=== PATIENT | female | born 1935 | race Hispanic/Latino ===

== ENCOUNTER 2018-01-20 21:27 | Emergency (ER) | payer MEDICARE, MEDICAID, SELFPAY ==
[2018-01-20 21:30] VITALS: BP 163/70; PULSE 92; RESP 20; TEMP 38.1; O2SAT 96; BMI 30.1
[2018-01-21 00:10] LABS: Add Manual Diff / Slide Review NO; Basophils Percent Auto 0.2 % (0-2); Eosinophils Percent Auto 0.8 % (2-4); Hematocrit 33.5 % (36-46); Hemoglobin 11.1 g/dL (12.0-16.0); Lymphocytes Percent Auto 3.2 % (25-40); Mean Corpuscular HGB Conc 33.1 % (30-36); Mean Corpuscular Hemoglobin 28.9 PG (26-34); Mean Corpuscular Volume 87.3 fL (80-100); Monocytes Percent Auto 1.3 % (3-14); Neutrophils Absolute Auto 11000 /uL (3000-5900); Neutrophils Percent Auto 94.5 % (50-75); Platelet Count 237 X10^3/uL (150-400); Red Blood Cell Count 3.84 X10^6/uL (4.0-5.2); Red Cell Distribution Width 14.3 % (11.6-14.8); White Blood Cell Count 11.6 X10^3/uL (4.5-11.0)
[2018-01-21 00:17] LABS: Lactate (Lactic Acid) 1.5 mmol/L (0.7-2.1)
[2018-01-21 00:21] LABS: Alanine Aminotransferase 22 IU/L (9-52); Albumin Globulin Ratio 1.5 (1.0-2.8); Alkaline Phosphatase 69 U/L (38-126); Aspartate Aminotransferase 23 IU/L (14-36); Bilirubin Total 0.6 mg/dL (0.2-1.3); Calcium 9.9 mg/dL (8.4-10.2); Estimated Glomerular Filt Rate > 60.0 mL/min (>60); Globulin 2.6 g/dL (1.7-4.1); Glucose 202 mg/dL (80-110); HEMOLYSIS < 15 (0-50); Lipase 78 U/L (23-300); Potassium 3.8 mmol/L (3.4-5.1); Sodium 140 mmol/L (137-145); Total Protein 6.6 g/dL (6.3-8.2)
[2018-01-21 00:42] LABS: Procalcitonin 0.94 ng/mL (<0.5)
[2018-01-21] MEDS: PIPERACILLIN-TAZO 4.5 GM/100 ML FROZ.PIGGY IV (00:49)
[2018-01-21] MEDS: SODIUM CHLORIDE 0.9% 1,000 ML 1000 ML IV (00:49)
--- NOTE | 2018-01-21 00:50 | PC.NURSE ---
zosyn dose verified with provider. medication not able to be scanned at this time.
[2018-01-21 01:57] VITALS: BP 123/67; PULSE 116; RESP 22; TEMP 36.8; O2SAT 99
--- NOTE | 2018-02-20 06:09 | ED.LOWEXIN ---
HPI - Extremity Injury (Lower) General Chief Complaint: Extremity Injury, Lower Stated Complaint: hip px Time Seen by Provider: 01/20/18 22:51 History of Present Illness HPI Narrative: HPI 82-year-old female presents with a poorly articulate history with the complaint of bilateral hip pain of one day, patient febrile. M/S/F/SocHx notable for: hypothyroidism, HLD, DM II, colonic tubular adenoma,; remainder reviewed with patient and in chart. ROS: Negative constitutional, eye, cardiovascular, pulmonary, GI, , MSK, skin, neurologic, psychiatric, endocrine unless noted in the HPI. Exam HR 92, BP 163/70, RR 20, T 100.6 ?F, SaO2 96% on room air. Gen: Pleasant, non-toxic appearing, resting comfortably. HEENT: NC, AT, PEERL, EOMI. Resp: Clear to auscultation bilaterally, normal work of breathing, no accessory muscle usage. No cough observed. Card: Regular rate and rhythm with no murmurs, rubs, or gallops, extremities warm and well perfused. GI: nontender, nondistended. : No suprapubic tenderness to palpation. MSK: No visible deformities, strength and tone without visually appreciable deficit. Skin: Normal color with no visible lesions. Neuro: alert, pleasant, no facial asymmetry, vision and hearing WNL. Psych: Mood and affect appropriate. Labs / Imaging: WBC 11.6, hemoglobin 11.1, PT/INR 1.0, sodium 140, potassium 3.8, lactic 1.5, Procalcitonin 0.94 MDM Previous chart, nursing note, labs, imaging, and vitals reviewed. A/P: 82-year-old female presents with a poorly articulate history with the complaint of bilateral hip pain of one day, patient febrile. Initial history limited by language barrier, at the time of the initial history the patient was with a large volume of patients with several unstable patients, intention was to return for repeat HPI and repeat examination with foreign language interpreter service. Initial screening labs were sent, and the patient was given initial dose of antibiotics as well as IV fluids. Prior to repeat evaluation I was informed by nursing that the patient had signed out AMA. I was unable to return to the patient's room before she had left the department. The patient was alert, oriented, and while there was a limited language barrier, the patient had intact insight, awareness of the ongoing need for evaluation, and appeared to have full capacity in her decision-making. Impression: hip pain (please reference below for remainder of encounter information) Related Data Home Medications Medication Instructions Recorded Confirmed ibuprofen 200 mg PO #0 11/12/16 Previous Rx's Medication Instructions Recorded Glucose: Home Monitoring Kit kit #1 03/27/17 levothyroxine [Synthroid] 125 mcg PO QDAY #90 tab 03/27/17 glipizide 2.5 mg PO BIDAC #45 tab 06/10/17 metformin [Glucophage] 1,000 mg PO BIDCC #180 tab 06/10/17 simvastatin 20 mg PO HS #90 tab 06/10/17 meclizine [Bonine] 25 mg PO BID PRN #20 09/09/17 ondansetron [Zofran ODT] 4 mg SUBLINGUAL Q4HP PRN #20 odt 10/09/17 scopolamine base [Transderm-Scop] 1 patch TD Q72H #4 patch 10/09/17 Allergies Allergy/AdvReac Type Severity Reaction Status Date / Time aspirin [ASPIRIN] AdvReac Mild NAUSEA Verified 01/20/18 21:59 PFSH Surgical History History of cataract removal with insertion of prosthetic lens Status post cholecystectomy Family History Brother High cholesterol Stroke Social History Smoking Status: Never smoker Exam Initial Vital Signs Initial Vital Signs: Vital Signs Temperature 100.6 F H 01/20/18 21:30 Pulse Rate 92 H 01/20/18 21:30 Respiratory Rate 20 01/20/18 21:30 Blood Pressure 163/70 H 01/20/18 21:30 Pulse Oximetry 96 01/20/18 21:30 Course Orders Ordered: Discontinued Medications Piperacillin/Tazobactam/Dextrose (Zosyn) 4.5 gm in 100 mls @ 200 mls/hr IV NOW ONE Stop: 01/20/18 23:50 Last Infusion: 01/21/18 01:59 Dose: 200 mls/hr Admin: 01/21/18 00:49 Dose: 200 mls/hr Sodium Chloride (Normal Saline 0.9%) 2,313.33 mls @ 771.11 mls/hr 30 ml/kg infuse over 3 hr (2313.33 ml) IV CONT TRIPP Last Admin: 01/21/18 00:50 Dose: Not Given Sodium Chloride (Normal Saline 0.9%) 1,000 mls @ 1,000 mls/hr IV BOLUS ONE Stop: 01/21/18 00:20 Last Infusion: 01/21/18 02:21 Dose: 1,000 mls/hr Admin: 01/21/18 00:49 Dose: 1,000 mls/hr MDM - Extremity Injury (Lower) Lab Data Result diagrams: 01/20/18 23:58 01/20/18 23:58 Lab Results 01/20/18 01/20/18 01/20/18 Range/Units 23:58 23:58 23:58 WBC 11.6 H (4.5-11.0) X10^3/uL RBC 3.84 L (4.0-5.2) X10^6/uL Hgb 11.1 L (12.0-16.0) g/dL Hct 33.5 L (36-46) % MCV 87.3 (80-100) fL MCH 28.9 (26-34) PG MCHC 33.1 (30-36) % RDW 14.3 (11.6-14.8) % Plt Count 237 (150-400) X10^3/uL Neut % (Auto) 94.5 H (50-75) % Lymph % (Auto) 3.2 L (25-40) % [place] % (Auto) 1.3 L (3-14) % Eos % (Auto) 0.8 L (2-4) % Baso % (Auto) 0.2 (0-2) % Neut # (Auto) 01106 H (4418-3566) /uL PT 11.0 (10.1-12.7) SECONDS INR 1.0 (0.9-1.3) Sodium 140 (137-145) mmol/L Potassium 3.8 (3.4-5.1) mmol/L Chloride 104.0 (98-107) mmol/L Carbon Dioxide 25.0 (22-32) mmol/L BUN 24.0 H (7-17) mg/dL Creatinine 0.40 L (0.52-1.04) mg/dL Estimated GFR > 60.0 (>60) mL/min BUN/Creatinine Ratio 60.0 H (6-22) Glucose 202 H (80-110) mg/dL Lactate (0.7-2.1) mmol/L Calcium 9.9 (8.4-10.2) mg/dL Total Bilirubin 0.6 (0.2-1.3) mg/dL AST 23 (14-36) IU/L ALT 22 (9-52) IU/L Alkaline Phosphatase 69 (38-126) U/L Total Protein 6.6 (6.3-8.2) g/dL Albumin 4.0 (3.5-5.0) g/dL Globulin 2.6 (1.7-4.1) g/dL Albumin/Globulin Ratio 1.5 (1.0-2.8) Lipase 78 (23-300) U/L Procalcitonin (<0.5) ng/mL 01/20/18 01/20/18 Range/Units 23:58 23:58 WBC (4.5-11.0) X10^3/uL RBC (4.0-5.2) X10^6/uL Hgb (12.0-16.0) g/dL Hct (36-46) % MCV (80-100) fL MCH (26-34) PG MCHC (30-36) % RDW (11.6-14.8) % Plt Count (150-400) X10^3/uL Neut % (Auto) (50-75) % Lymph % (Auto) (25-40) % [place] % (Auto) (3-14) % Eos % (Auto) (2-4) % Baso % (Auto) (0-2) % Neut # (Auto) (2036-5655) /uL PT (10.1-12.7) SECONDS INR (0.9-1.3) Sodium (137-145) mmol/L Potassium (3.4-5.1) mmol/L Chloride (98-107) mmol/L Carbon Dioxide (22-32) mmol/L BUN (7-17) mg/dL Creatinine (0.52-1.04) mg/dL Estimated GFR (>60) mL/min BUN/Creatinine Ratio (6-22) Glucose (80-110) mg/dL Lactate 1.5 (0.7-2.1) mmol/L Calcium (8.4-10.2) mg/dL Total Bilirubin (0.2-1.3) mg/dL AST (14-36) IU/L ALT (9-52) IU/L Alkaline Phosphatase (38-126) U/L Total Protein (6.3-8.2) g/dL Albumin (3.5-5.0) g/dL Globulin (1.7-4.1) g/dL Albumin/Globulin Ratio (1.0-2.8) Lipase (23-300) U/L Procalcitonin 0.94 H (<0.5) ng/mL Discharge Plan Departure Patient Disposition: Left Against Medical Advice Discharge Date/Time: 01/21/18 03:41 Interventions: ED Discharge Assessment Last Done: 01/21/18 03:39 Prescriptions: No Action ibuprofen 200 MG tablet 200 mg PO Qty: 0 RF: 0 levothyroxine [Synthroid] 125 MCG tablet 125 mcg PO QDAY Qty: 90 RF: 2 Glucose: Home Monitoring Kit Qty: 1 RF: 0 simvastatin 20 MG tablet 20 mg PO HS Qty: 90 RF: 3 metformin [Glucophage] 1,000 MG tablet 1,000 mg PO BIDCC Qty: 180 RF: 3 glipizide 5 MG tablet 2.5 mg PO BIDAC Qty: 45 RF: 1 meclizine [Bonine] 25 MG tablet,chewable 25 mg PO BID PRNQty: 20 RF: 0 scopolamine base [Transderm-Scop] 1.5 MG patch 3 day 1 patch TD Q72H Qty: 4 RF: 0 ondansetron [Zofran ODT] 4 MG tablet,disintegrating 4 mg Sublingual Q4HP PRNQty: 20 RF: 0 Stand Alone Forms: Against Medical Advice
== END 2018-01-21 03:41 | disposition left against medical advice (07) ==
PROVIDERS: Emergency Provider Emergency Medicine; Family Provider Family Medicine; PCP Family Medicine
DX: M25.559 Pain in unspecified hip (principal)
CPT/HCPCS: 36415; 36591; 80053; 83605; 83690; 84145; 85025; 85610; 87040; 96360; 99283; 99284; J2543

== ENCOUNTER → 2019-06-02 12:35 | Outpatient (CLI) | payer MEDICARE, MEDICAID, SELFPAY ==
--- NOTE | 2019-06-02 | DI.RAD.S_ITS ---
PROCEDURE: XR HAND RT MIN 3V INDICATIONS: Pain in right hand TECHNIQUE: 3 views of the hand(s) acquired. COMPARISON: None. FINDINGS: Bones: No fractures or dislocations. Carpal bones are normally aligned. No suspicious bony lesions. Diffuse interphalangeal joint degeneration. First CMC and triscaphe joint degeneration. Soft tissues: Numerous vascular calcifications. Periarticular calcific foci adjacent to the second, third and fifth MCP joints. There is also chondrocalcinosis in the wrist IMPRESSION: Diffuse right hand joint degeneration. Right wrist chondrocalcinosis. Scattered periarticular calcific foci at the MCP joints as above raising possibility of tophi/gout. Please correlate clinically with serum uric acid. Dictated by: Kade Terrell M.D. on 06/02/2019 at 16:31 Approved by: Kade Terrell M.D. on 06/02/2019 at 16:34
== END ==
PROVIDERS: PCP Family Medicine; Visit Provider Family Medicine
DX: M79.641 Pain in right hand (principal); M19.041 Primary osteoarthritis, right hand; M11.231 Other chondrocalcinosis, right wrist
CPT/HCPCS: 73130

== ENCOUNTER 2020-06-09 16:22 | Emergency (ER) | payer MEDICARE, MEDICAID, SELFPAY ==
[2020-06-09] VITALS (9 sets, daily range): BP systolic 135–185; BP diastolic 66–86; PULSE 66–90; RESP 12–25; TEMP 37.1; O2SAT 96–98; BMI 43.6
[2020-06-09 17:35] LABS: INR 0.9 (0.9-1.3); Prothrombin Time 10.9 SECONDS (10.1-12.7)
[2020-06-09 17:37] LABS: PTT Partial Thromboplastin Tim 31 SECONDS (26.4-36.2)
[2020-06-09 17:39] LABS: Add Manual Diff / Slide Review NO; Alanine Aminotransferase 11 IU/L (<35); Albumin 4.4 g/dL (3.5-5.0); Albumin Globulin Ratio 1.5 (1.0-2.8); Alkaline Phosphatase 59 U/L (38-126); Aspartate Aminotransferase 33 IU/L (14-36); BUN Creatinine Ratio 54.8 (6-22); Basophils Absolute Auto 100 /uL (0-100); Bilirubin Total 0.4 mg/dL (0.2-1.3); Blood Urea Nitrogen 23 mg/dL (7-17); Calcium 9.9 mg/dL (8.4-10.2); Carbon Dioxide 23 mmol/L (22-32); Chloride 105 mmol/L (98-107); Eosinophils Absolute Auto 300 /uL (0-450); Eosinophils Percent Auto 3.6 % (2-4); Estimated Glomerular Filt Rate > 60.0 mL/min (>60); Glucose 146 mg/dL (80-110); HEMOLYSIS 42 (0-50); Hematocrit 35.5 % (36-46); Hemoglobin 11.5 g/dL (12.0-16.0); Lymphocytes Absolute Auto 2200 /uL (1100-4500); Lymphocytes Percent Auto 31.4 % (25-40); Mean Corpuscular HGB Conc 32.4 % (30-36); Mean Corpuscular Hemoglobin 29.3 PG (26-34); Mean Corpuscular Volume 90.6 fL (80-100); Monocytes Absolute Auto 400 /uL (0-900); Monocytes Percent Auto 5.6 % (3-14); Neutrophils Absolute Auto 4100 /uL (1500-7000); Neutrophils Percent Auto 58.4 % (50-75); Platelet Count 287 X10^3/uL (150-400); Potassium 4.8 mmol/L (3.4-5.1); Red Blood Cell Count 3.92 X10^6/uL (4.0-5.2); Red Cell Distribution Width 14.4 % (11.6-14.8); Sodium 137 mmol/L (137-145); Total Protein 7.4 g/dL (6.3-8.2); White Blood Cell Count 7.1 X10^3/uL (4.5-11.0)
[2020-06-09 18:01] LABS: Bacteria Urine None Seen; RBC Urine None Seen (0-5/HPF)
[2020-06-09 18:10] LABS: Culture Indicated Urine Cult Not Indicated; Mucus Urine 1+ (Negative); Squamous Epithelial Cell Urine 0-1 /HPF (0-5/HPF); WBC Urine 0-1/HPF (0-5/HPF)
--- NOTE | 2020-06-09 18:34 | ED_ITS ---
HPI - Nausea/Vomiting/Diarrhea General Chief complaint: GI Bleed Stated complaint: bloody stool, itching Time Seen by Provider: 06/09/20 17:18 Source: patient and family Mode of arrival: Ambulatory Limitations: language barrier History of Present Illness HPI Narrative: Patient does not want a washery engineer phone. She prefers her daughter to translate. Patient is not here for rectal bleeding she is here for watery diarrhea each day and especially after eating. No abdominal pain no dizziness no syncope. At time sees black stools but no blood in the toilet. No weakness no dizziness no chest pain dyspnea or back pain. Is not on any blood thinners. No history of hemorrhoids. Patient takes Excedrin for chronic hand and arthritis pain. Takes this daily. Daughter feels that this may be upsetting her stomach. Denies any pain. No history of EGD. Family physician in [place]. Related Data Home Medications Medication Instructions Recorded Confirmed ibuprofen 200 mg PO #0 11/12/16 03/21/18 Previous Rx's Medication Instructions Recorded Glucose: Home Monitoring Kit kit #1 03/27/17 levothyroxine [Synthroid] 125 mcg PO QDAY #90 tab 03/27/17 glipizide 2.5 mg PO BIDAC #45 tab 06/10/17 metformin [Glucophage] 1,000 mg PO BIDCC #180 tab 06/10/17 simvastatin 20 mg PO HS #90 tab 06/10/17 meclizine [Bonine] 25 mg PO BID PRN #20 09/09/17 ondansetron [Zofran ODT] 4 mg SUBLINGUAL Q4HP PRN #20 odt 10/09/17 scopolamine base [Transderm-Scop] 1 patch TD Q72H #4 patch 10/09/17 pantoprazole [Protonix] 40 mg PO DAILY #30 tab 06/09/20 sucralfate 1 gram PO BID #20 tab 06/09/20 Allergies Allergy/AdvReac Type Severity Reaction Status Date / Time aspirin [ASPIRIN] AdvReac Mild NAUSEA Verified 06/09/20 16:44 Review of Systems Review of Systems Narrative: GENERAL: Denies chills, fatigue, malaise, fever, sweats. HEENT: Denies sinus pain, ear pain, sore throat, difficulty swallowing, dizziness. RESPIRATORY: Denies dyspnea, cough, wheezing, hemoptysis, sputum. CARDIOVASCULAR: Denies chest pain, palpitations, orthopnea, edema, GASTROINTESTINAL: Denies nausea, vomiting, abdominal pain, complains diarrhea, constipation, complains melena. : Denies dysuria, frequency, incontinence, hematuria, urinary retention. MUSCULOSKELETAL: denies weakness, joint pain, or bony pain SKIN: Denies rash, skin lesions NEUROLOGIC: Denies weakness, headache, numbness, change in speech, confusion, seizures, incoordination. PSYCHIATRIC: No concerning psychosocial issues. ROS Unobtainable: All systems reviewed & are unremarkable except as noted in HPI and below Patient History Surgical History History of cataract removal with insertion of prosthetic lens Status post cholecystectomy Family History Brother High cholesterol Stroke Social History Smoking Status: Never smoker Smoking Status: Never smoker Substance Use Type: does not use Exam Narrative Exam Narrative: GENERAL: patient appears stated age. Well-nourished, well- developed patient, in no distress, not toxic HEAD: Atraumatic. Normocephalic. EYES: Pupils equal round and reactive. Extraocular motions intact. No scleral icterus. No injection or drainage. ENT: Nose without bleeding, purulent drainage. Throat without erythema, tonsillar hypertrophy or exudate. Airway patent. NECK: Trachea midline. Non tender CARDIOVASCULAR: Regular rate and rhythm without murmurs, gallops, or rubs. RESPIRATORY: Clear to auscultation. Breath sounds equal bilaterally. No wheezes, rales, or rhonchi. GASTROINTESTINAL: Abdomen soft, non-tender, nondistended. Female nurse at bedside to supervisor phosphorus processing. No blood at the anus. No black stool. Brown stool on glove. Is guaiac negative. no hemorrhoids seen EXTREMITIES: No edema or joint tenderness. BACK: Nontender without deformity or crepitance. No flank tenderness. NEURO: AOx4. SKIN: No rash or erythema of visible areas PSYCH: Not anxious, is cooperative Initial Vital Signs Initial Vital Signs: Vital Signs Temperature 98.7 F 06/09/20 16:44 Pulse Rate 90 06/09/20 16:44 Respiratory Rate 16 06/09/20 16:44 Blood Pressure 183/77 H 06/09/20 16:44 Pulse Oximetry 97 06/09/20 16:44 Course Orders Ordered: ED Orders 06/09/20 16:38 Urine Microscopic Stat 06/09/20 17:07 Complete Blood Count AUTO DIFF Stat Comprehensive Metabolic Panel Stat Partial Thromboplastin Time Stat Prothrombin Time INR Stat 06/09/20 17:27 EKG-12 Lead Stat 06/09/20 18:33 CT abdomen pelvis w con Stat Discontinued Medications Sodium Chloride (Normal Saline 0.9%) 500 mls @ 1,000 mls/hr IV BOLUS ONE Stop: 06/09/20 19:02 Last Infusion: 06/09/20 20:26 Dose: 0 mls/hr Documented by: Admin: 06/09/20 18:40 Dose: 1,000 mls/hr Documented by: EDWIN Pantoprazole Sodium (Protonix) 40 mg IV NOW ONE Stop: 06/09/20 18:34 Last Admin: 06/09/20 18:39 Dose: 40 mg Documented by: EDWIN Reevaluation(s) Reevaluation #1: No diarrhea during his stay here. No black stools. Reviewed results with daughter and patient. They desire discharge home and follow-up. Time: 20:10 Vital Signs Vital signs: Vital Signs - 8 hr 06/09/20 17:29 06/09/20 17:30 06/09/20 18:00 Pulse Rate 82 82 82 Respiratory Rate 19 20 25 H Blood Pressure 185/86 H Pulse Oximetry 96 96 96 06/09/20 18:11 06/09/20 18:30 06/09/20 19:00 Pulse Rate 73 74 77 Respiratory Rate 19 24 16 Blood Pressure 135/75 Pulse Oximetry 97 96 98 06/09/20 20:13 06/09/20 20:26 Pulse Rate 66 Respiratory Rate 12 Blood Pressure 143/66 H 143/66 H Pulse Oximetry 96 MDM - Nausea/Vomiting/Diarrhea Differential Diagnosis Differential diagnosis: Likely gastroenteritis and other (Diarrhea/gastritis) Lab Data Attestation: I reviewed the patient's lab results. Lab results narrative: CBC at baseline. The renal function at baseline Result diagrams: 06/09/20 17:07 06/09/20 17:07 Labs: Lab Results 06/09/20 06/09/20 06/09/20 Range/Units 16:38 17:07 17:07 WBC 7.1 (4.5-11.0) X10^3/uL RBC 3.92 L (4.0-5.2) X10^6/uL Hgb 11.5 L (12.0-16.0) g/dL Hct 35.5 L (36-46) % MCV 90.6 (80-100) fL MCH 29.3 (26-34) PG MCHC 32.4 (30-36) % RDW 14.4 (11.6-14.8) % Plt Count 287 (150-400) X10^3/uL Neut % (Auto) 58.4 (50-75) % Lymph % (Auto) 31.4 (25-40) % [place] % (Auto) 5.6 (3-14) % Eos % (Auto) 3.6 (2-4) % Baso % (Auto) 1.0 (0-2) % Neut # (Auto) 4100 (6860-7519) /uL Lymph # (Auto) 2200 (0018-4912) /uL [place] # (Auto) 400 (0-900) /uL Eos # (Auto) 300 (0-450) /uL Baso # (Auto) 100 (0-100) /uL PT 10.9 (10.1-12.7) SECONDS INR 0.9 (0.9-1.3) APTT 31 (26.4-36.2) SECONDS Sodium (137-145) mmol/L Potassium (3.4-5.1) mmol/L Chloride (98-107) mmol/L Carbon Dioxide (22-32) mmol/L BUN (7-17) mg/dL Creatinine (0.52-1.04) mg/dL Estimated GFR (>60) mL/min BUN/Creatinine Ratio (6-22) Glucose (80-110) mg/dL Calcium (8.4-10.2) mg/dL Total Bilirubin (0.2-1.3) mg/dL AST (14-36) IU/L ALT (<35) IU/L Alkaline Phosphatase (38-126) U/L Total Protein (6.3-8.2) g/dL Albumin (3.5-5.0) g/dL Globulin (1.7-4.1) g/dL Albumin/Globulin Ratio (1.0-2.8) Urine RBC None seen (0-5/HPF) Urine WBC 0-1/hpf (0-5/HPF) Ur Squamous Epith Cells 0-1 /hpf (0-5/HPF) Urine Bacteria None seen (None) Urine Mucus 1+ H (Negative) Ur Culture Indicated? Cult not indicated 06/09/20 Range/Units 17:07 WBC (4.5-11.0) X10^3/uL RBC (4.0-5.2) X10^6/uL Hgb (12.0-16.0) g/dL Hct (36-46) % MCV (80-100) fL MCH (26-34) PG MCHC (30-36) % RDW (11.6-14.8) % Plt Count (150-400) X10^3/uL Neut % (Auto) (50-75) % Lymph % (Auto) (25-40) % [place] % (Auto) (3-14) % Eos % (Auto) (2-4) % Baso % (Auto) (0-2) % Neut # (Auto) (6341-7852) /uL Lymph # (Auto) (4904-4467) /uL [place] # (Auto) (0-900) /uL Eos # (Auto) (0-450) /uL Baso # (Auto) (0-100) /uL PT (10.1-12.7) SECONDS INR (0.9-1.3) APTT (26.4-36.2) SECONDS Sodium 137 (137-145) mmol/L Potassium 4.8 (3.4-5.1) mmol/L Chloride 105 (98-107) mmol/L Carbon Dioxide 23 (22-32) mmol/L BUN 23 H (7-17) mg/dL Creatinine 0.42 L (0.52-1.04) mg/dL Estimated GFR > 60.0 (>60) mL/min BUN/Creatinine Ratio 54.8 H (6-22) Glucose 146 H (80-110) mg/dL Calcium 9.9 (8.4-10.2) mg/dL Total Bilirubin 0.4 (0.2-1.3) mg/dL AST 33 (14-36) IU/L ALT 11 (<35) IU/L Alkaline Phosphatase 59 (38-126) U/L Total Protein 7.4 (6.3-8.2) g/dL Albumin 4.4 (3.5-5.0) g/dL Globulin 3.0 (1.7-4.1) g/dL Albumin/Globulin Ratio 1.5 (1.0-2.8) Urine RBC (0-5/HPF) Urine WBC (0-5/HPF) Ur Squamous Epith Cells (0-5/HPF) Urine Bacteria (None) Urine Mucus (Negative) Ur Culture Indicated? Urine Dip Bedside Urine Glucose Negative Bedside Urine Bilirubin - Negative Bedside Urine Ketone + 15 Urine Specific [place] 1.025 Bedside Urine Occult Blood - Negative Bedside Urine pH 5.5 Bedside Urine Protein - Negative Bedside Urine Urobilinogen - Negative Bedside Urine Nitrite - Negative Bedside Urine Leukocytes - Negative Esterase Imaging Data CT scan - abdomen/pelvis: Radiologist's Impression: [address] [address] [address] Scan Report Signed Patient: Cee Stockton R#: [id number] : 5Acct:[id number] Age/Sex: 84 / FDate of Service: 06/09/20 Loc: ED Accession Number: [id number] Procedure: CT abdomen pelvis w con Ordering Provider: Bienvenido Dodd MD PROCEDURE: CT ABDOMEN PELVIS W CON INDICATIONS: IV contrast only/diarrhea TECHNIQUE: After the administration of intravenous contrast, 5 mm thick sections acquired from the diaphragm to the symphysis. 5 mm coronal and sagittal reformats were acquired. For radiation dose reduction, the following was used: automated exposure control, adjustment of mA and/or kV according to patient size. COMPARISON: [facility], CT, ABDOMEN/PELVIS WITH CONTRAST, 11/05/2013, 12:47. FINDINGS: Image quality: Excellent. ABDOMEN: Lung bases: The visible distal esophagus is mildly patulous and contains an air-fluid level in the midportion. Heart is mildly enlarged with moderate mitral annular calcification. Lung bases are clear. Solid organs: Liver is enlarged in the anterior posterior direction and contains a punctate coarse calcification.. Gallbladder is surgically absent. . Biliary system is non dilated. Pancreas is diminutive but enhances normally. Spleen is normal in size and enhancement. No adrenal nodules. Kidneys demonstrate normal size and enhancement, without hydronephrosis. Peritoneum and bowel: The colon is redundant and contains extensive sigmoid diverticula as well as numerous diverticula elsewhere. No pericolonic inflammation. Bowel loops demonstrate normal wall thickness and caliber. No free fluid or air. Nodes and vessels: No retroperitoneal or mesenteric adenopathy by size criteria. Aorta and inferior vena cava are normal in size. Miscellaneous: No ventral hernias. PELVIS: Genitourinary: Bladder wall thickness is normal. Uterus and ovaries are present and contain degenerative calcification. Miscellaneous: No inguinal hernias or adenopathy. Bones: No suspicious bony lesions. Severe degeneration at the L4-5 and L5-S1 facet joints and moderate disc degeneration. Grade 1 anterolisthesis at these levels. No vertebral body compression fractures. IMPRESSION: 1. No acute process. 2. Diverticulosis without acute diverticulitis. 3. Hepatomegaly. 4. Mid esophagus contains an air-fluid level, potentially reflux. Dictated by: Renee Mack M.D. on 06/09/2020 at 19:31 Approved by: Renee Mack M.D. on 06/09/2020 at 19:37 ECG Data Attestation: I personally reviewed and interpreted this ECG as follows: Interpretation: Review normal sinus rhythm. No ST elevation or depression MDM Narrative Medical decision making narrative: Appropriate for discharge home. Not toxic. Not tachycardic or hypotensive. Guaiac negative. Hemoglobin at baseline. No abdominal pain. No dizziness. Likely gastritis leading to diarrhea with chronic use of NSAIDs. Patient will stop taking these. Transition to Tylenol. Will start Protonix. Discharge Plan Departure Patient Disposition: Home Clinical Impression: Diarrhea in adult patient Discharge Date/Time: 06/09/20 20:26 Instructions: Diarrhea Activity Restrictions/Additional Instructions: Do not take ibuprofen or Excedrin or Aleve for your arthritis. May take Tylenol. See family doctor for recheck next week. Return if worse. Return if any questions or concerns Prescriptions: New pantoprazole [Protonix] 40 mg tablet,delayed release (DR/EC) 40 mg PO DAILY Qty: 30 RF: 0 sucralfate 1 gram tablet 1 gram PO BID Qty: 20 RF: 0 No Action ibuprofen 200 MG tablet 200 mg PO Qty: 0 RF: 0 levothyroxine [Synthroid] 125 MCG tablet 125 mcg PO QDAY Qty: 90 RF: 2 Glucose: Home Monitoring Kit Qty: 1 RF: 0 simvastatin 20 MG tablet 20 mg PO HS Qty: 90 RF: 3 metformin [Glucophage] 1,000 MG tablet 1,000 mg PO BIDCC Qty: 180 RF: 3 glipizide 5 MG tablet 2.5 mg PO BIDAC Qty: 45 RF: 1 meclizine [Bonine] 25 MG tablet,chewable 25 mg PO BID PRNQty: 20 RF: 0 scopolamine base [Transderm-Scop] 1.5 MG patch 3 day 1 patch TD Q72H Qty: 4 RF: 0 ondansetron [Zofran ODT] 4 MG tablet,disintegrating 4 mg Sublingual Q4HP PRNQty: 20 RF: 0 Referrals: Malinda Valenzuela MD [Primary Care Provider] -
[2020-06-09] MEDS: PANTOPRAZOLE 40 MG VIAL IV (18:39)
[2020-06-09] MEDS: SODIUM CHLORIDE 0.9% 500 ML 1000 ML IV (18:40)
== END 2020-06-09 20:26 | disposition home or self-care (01) ==
PROVIDERS: Emergency Medicine; Emergency Provider Emergency Medicine; PCP Family Medicine
DX: R19.7 Diarrhea, unspecified (principal)
CPT/HCPCS: 36415; 74177; 80053; 81003; 81015; 85025; 85610; 85730; 93005; 96361; 96374; 99284; C9113; Q9967

== ENCOUNTER → 2020-12-22 10:08 | Outpatient (CLI) | payer MEDICARE, SELFPAY ==
[2020-12-22] MEDS: COVID-19 VACC #1, MRNA(MOD) 100 MCG/0.5 ML VIAL IM (10:24)
== END ==
PROVIDERS: PCP Family Medicine; Visit Provider Internal Medicine
DX: Z23 Encounter for immunization (principal)
CPT/HCPCS: 0011A; 91301

== ENCOUNTER → 2021-01-19 13:26 | Outpatient (CLI) | payer MEDICARE, SELFPAY ==
[2021-01-19] MEDS: COVID-19 VACC #2, MRNA(MOD) 100 MCG/0.5 ML VIAL IM (13:40)
== END ==
PROVIDERS: PCP Family Medicine; Visit Provider Internal Medicine
DX: Z23 Encounter for immunization (principal)
CPT/HCPCS: 0012A; 91301

== ENCOUNTER → 2021-03-28 10:09 | Outpatient (CLI) | payer MEDICARE, MEDICAID, SELFPAY | PROVIDERS: PCP Family Medicine; Visit Provider Physician Assistant | DX: N39.0 Urinary tract infection, site not specified (principal) | CPT/HCPCS: 87086 ==

== ENCOUNTER → 2021-04-17 10:06 | Outpatient (CLI) | payer MEDICARE, MEDICAID, SELFPAY | PROVIDERS: PCP Family Medicine; Visit Provider Physician Assistant | DX: N34.3 Urethral syndrome, unspecified (principal); N89.8 Other specified noninflammatory disorders of vagina | CPT/HCPCS: 87086; 87210 ==

== ENCOUNTER 2021-12-18 09:07 | Inpatient (IN) | payer MEDICARE, MEDICAID, SELFPAY ==
[2021-12-18] VITALS (38 sets, daily range): BP systolic 103–166; BP diastolic 53–72; PULSE 90–105; RESP 14–38; TEMP 36.2–37.4; O2SAT 91–102; BMI 30.6
--- NOTE | 2021-12-18 09:23 | ED.FALL ---
HPI - Fall General Chief Complaint: Syncope Stated Complaint: Found down Time Seen by Provider: 12/18/21 09:17 Source: patient Mode of arrival: EMS Limitations: language barrier (interperter language line used.) History of Present Illness HPI Narrative: This is an 86-year-old female who is primarily [place] speaking. Enrollment Management Coordinator language line was used although they state patient does seem somewhat confused during the can discussion. Patient is unable to tell me how or why she ended up on the floor in her bathroom. Unclear exact time frame but her home health caregiver had called EMS and it was noted she was in the same clothes she was in yesterday, stuck on her bathroom floor, she was still in all of her clothes but had stool and had rolled in the stool as well. Patient has a reported history of diabetes, on metformin patient denies other daily medications. She knows that she is at the hospital and is aware of how she arrived here. She denies any pain currently she denies headache, neck pain, chest pain or shortness of breath. She denies any nausea or vomiting although EMS states she was vomiting EN route and was given oral Zofran. She denies any diarrhea constipation but has had diarrhea in the department. No visualized black or bloody stools. No reported urinary issues. Patient is not on any blood thinners a reportedly or from her discussion. Patient denied any surgical history. Denies any history of allergies to medications. Patient's chart notes from 01/19/2018 that she had hypothyroidism, dyslipidemia, diabetes type 2, colonic tubular adenoma and at that time had a difficult time giving history as well. Related Data Home Medications Medication Instructions Recorded Confirmed blood sugar diagnostic (OneTouch 12/18/21 12/18/21 Verio test strips) diclofenac sodium 1 % topical gel 2 g TOPICAL QID PRN 12/18/21 12/18/21 glipizide 5 mg tablet 5 mg PO BID 12/18/21 12/18/21 levothyroxine 75 mcg tablet 75 mcg PO QAM 12/18/21 12/18/21 lidocaine 5 % topical patch 1 patch TOPICAL DAILY 12/18/21 12/18/21 lisinopril 10 mg tablet 10 mg PO DAILY 12/18/21 12/18/21 Previous Rx's Medication Instructions Recorded metformin 1,000 mg tablet 1,000 mg PO BIDCC #180 tab 06/10/17 (Glucophage) simvastatin 20 mg tablet 20 mg PO HS #90 tab 06/10/17 Allergies Allergy/AdvReac Type Severity Reaction Status Date / Time aspirin [ASPIRIN] AdvReac Mild NAUSEA Verified 12/18/21 09:28 Review of Systems Review of Systems ROS Unobtainable: Unobtainable due to mental status/LOC Patient History Medical History (Updated 12/18/21 @ 15:45 by Jimena Ramey MD) Hyperlipidemia Hypertension Hypothyroidism Type 2 diabetes mellitus Surgical History (Updated 12/18/21 @ 15:47 by Jimena Ramey MD) History of bilateral knee replacement History of cataract removal with insertion of prosthetic lens Status post cholecystectomy Family History Brother High cholesterol Stroke Social History household members: caregiver Smoking Status: Never smoker Smoking Status: Never smoker Substance Use Type: does not use Exam Narrative Exam Narrative: GEN: Obese female, alert and oriented but does appear confused mild HEENT: Atraumatic, pupils are equal round reactive to light, extraocular movements are intact, nares are clear, TMs are clear with no fluid, there is no conjunctival pallor. Throat is clear without any exudates, erythema, tonsillar enlargement or uvular deviation, patient has some erythema across the the right cheek and neck consistent with pressure, no facial droop. HEART: Regular rate and rhythm without murmur, clicks, rubs. Pulses are equal in upper and lower extremities LUNGS:Lungs clear to auscultation, no wheezes, rales, crackles, chest moves symmetrically, no tachypnea accessory muscle use. Patient speaks in full sentences. ABD:bowel sounds normal, soft, non-tender, no guarding, rebound, rigidity, no masses noted, no hepatosplenomegaly :No CVA tenderness BACK: No cervical, thoracic or lumbar vertebral point tenderness. Patient has range of motion upper and lower extremities. Patient is able to lift and move all 4 legs independently. She has erythema on the right knee on the lateral side as well as ankle as well as the left ankle and knee on the medial side and erythema and signs right-sided back consistent with patient having lied and a prolonged period of time on her right side. No breakdown into the skin is clearly visualized. MSCL: No bony tenderness NEURO:CN 2-12 intact, sensation normal SKIN: See above. Initial Vital Signs Initial Vital Signs: Vital Signs Temperature 97.1 F L 12/18/21 09:05 Pulse Rate 105 H 12/18/21 09:05 Respiratory Rate 24 12/18/21 09:05 Blood Pressure 134/62 12/18/21 09:05 Pulse Oximetry 99 12/18/21 09:05 Scores GCS [place] coma scale eye opening: Spontaneous [place] coma scale verbal response: Confused [place] coma scale motor response: Obey commands Cindy coma scale total score: 14 Course Orders Ordered: ED Orders 12/18/21 10:50 Blood Culture Stat 12/18/21 10:51 ABG [Arterial Blood Gas] Stat 12/18/21 11:34 Ketones (Beta-Hydroxybutyrate) Stat 12/18/21 14:05 Basic Metabolic Panel Stat Acetaminophen (Acetaminophen 325 Mg Tablet) 650 mg PO Q6HR PRN PRN Reason: Pain, Mild (1-3) Atorvastatin Calcium (Atorvastatin 20 Mg Tablet) 10 mg PO BEDTIME TRIPP Bisacodyl (Bisacodyl 10 Mg Supp) [address] DAILY PRN PRN Reason: Constipation Docusate Sodium (Docusate 100 Mg Capsule) 100 mg PO BID TRIPP Enoxaparin Sodium (Enoxaparin 40 Mg/0.4 Ml Syringe) 40 mg SUBCUT DAILY TRIPP INSULIN DRIP PREMIX (Myxredlin Drip Premix) 100 unit in 100 mls @ 6 mls/hr IV TITRATE TRIPP; Protocol Last Titration: 12/18/21 19:00 Dose: 1.5 mls/hr Documented by: NYDIA Cosigned by: CTRANTHONY Titration: 12/18/21 17:00 Dose: 3.7 mls/hr Documented by: NYDIA Cosigned by: CARLOSADLE Titration: 12/18/21 15:15 Dose: 11 mls/hr Documented by: NYDIA Cosigned by: CARLOSADLE Titration: 12/18/21 14:30 Dose: 3.6 mls/hr Documented by: EMILEE Cosigned by: JUAN Titration: 12/18/21 13:52 Dose: 3.6 mls/hr Documented by: EMILEE Cosigned by: ONI Titration: 12/18/21 13:41 Dose: 4 mls/hr Documented by: EMILEE Cosigned by: JUAN Admin: 12/18/21 12:29 Dose: 6 ml/hr, 6 mls/hr Documented by: EMILEE Cosigned by: JUAN Dextrose ([email or web address]) 250 mls @ 999 mls/hr IV PRN PRN PRN Reason: Hypoglycemia Lactated Ringer's (Lactated Ringers) 1,000 mls @ 100 mls/hr IV CONT [facility] Last Admin: 12/18/21 16:15 Dose: 100 mls/hr Documented by: [email or web address] Dextrose/Sodium Chloride (Dextrose 5%-0.45% Ns) 1,000 mls @ 110 mls/hr IV CONT [facility] Last Admin: 12/18/21 17:26 Dose: 110 mls/hr Documented by: [email or web address] Levothyroxine Sodium (Levothyroxine 75 Mcg Tablet) 75 mcg PO DAILY@0600 [facility] Lidocaine (Lidocaine Patch 1 Each Adh..Patch) 1 each TOP DAILY [facility] Lidocaine (Remove Lidocaine Patch) 1 each TOP BEDTIME TRIPP Lisinopril (Lisinopril 10 Mg Tablet) 10 mg PO DAILY TRIPP Metoclopramide HCl (Metoclopramide 10 Mg/2 Ml Inj) 10 mg IV Q6HR PRN PRN Reason: Nausea And Vomiting Ondansetron HCl (Ondansetron 4 Mg/2 Ml Inj) 4 mg IV Q4HR PRN PRN Reason: Nausea And Vomiting Discontinued Medications Sodium Chloride (Normal Saline 0.9%) 1,000 mls @ 1,000 mls/hr IV BOLUS ONE Stop: 12/18/21 10:54 Last Infusion: 12/18/21 11:20 Dose: 0 mls/hr Documented by: Admin: 12/18/21 10:18 Dose: 1,000 mls/hr Documented by: JUAN Sodium Chloride (Normal Saline 0.9%) 1,000 mls @ 1,000 mls/hr IV BOLUS ONE Stop: 12/18/21 11:45 Last Infusion: 12/18/21 12:34 Dose: 0 mls/hr Documented by: Admin: 12/18/21 11:21 Dose: 1,000 mls/hr Documented by: EMILEE Sodium Chloride (Normal Saline 0.9%) 1,000 mls @ 200 mls/hr IV CONT TRIPP Stop: 01/17/22 16:44 Last Infusion: 12/18/21 16:19 Dose: 0 mls/hr Documented by: Infusion: 12/18/21 16:18 Dose: 0 mls/hr Documented by: Infusion: 12/18/21 14:30 Dose: 200 mls/hr Documented by: Admin: 12/18/21 12:32 Dose: 200 mls/hr Documented by: EMILEE Potassium Chloride 10 meq/ (Sodium Chloride) 105 mls @ 105 mls/hr IV Q1H TRIPP Stop: 12/18/21 14:14 Last Infusion: 12/18/21 16:28 Dose: 0 mls/hr Documented by: NYDIA Cosigned by: CTR.KHADLE Admin: 12/18/21 14:57 Dose: 105 mls/hr Documented by: NYDIA Cosigned by: CTR.KHADLE Infusion: 12/18/21 13:41 Dose: 0 mls/hr Documented by: EMILEE Cosigned by: JUAN Admin: 12/18/21 12:32 Dose: 105 mls/hr Documented by: EMILEE Cosigned by: ALINE Potassium Chloride 10 meq/ (Sodium Chloride) 105 mls @ 105 mls/hr IV Q1H TRIPP Stop: 12/18/21 17:59 Last Admin: 12/18/21 18:25 Dose: 105 mls/hr Documented by: NYDIA Cosigned by: CTR.KHADLE Infusion: 12/18/21 18:12 Dose: 105 mls/hr Documented by: NYDIA Cosigned by: CTR.KHADLE Admin: 12/18/21 17:12 Dose: 105 mls/hr Documented by: NYDIA Cosigned by: CTR.KHADLE Infusion: 12/18/21 17:12 Dose: 105 mls/hr Documented by: NYDIA Cosigned by: CTR.KHADLE Admin: 12/18/21 16:15 Dose: 105 mls/hr Documented by: AYLIN Cosigned by: NYDIA Consultations Consultation #1: Dr. Ramey, hospitalist accepted for admission for DKA, milder very early rhabdo although patient does not have creatinine changes. Fluids have been initiated, discussed patient's insulin drip initiated. Vital Signs Vital signs: Vital Signs - 8 hr 12/18/21 11:45 Pulse Rate 97 H Respiratory Rate 28 H Blood Pressure 138/60 Pulse Oximetry 97 - Fall Lab Data Result diagrams: 12/18/21 10:00 12/18/21 18:15 Labs: Lab Results 12/18/21 12/18/21 12/18/21 Range/Units 10:00 10:00 10:00 WBC 19.1 H (4.5-11.0) X10^3/uL RBC 4.22 (4.0-5.2) X10^6/uL Hgb 12.8 (12.0-16.0) g/dL Hct 39.8 (36-46) % MCV 94.3 (80-100) fL MCH 30.3 (26-34) PG MCHC 32.1 (30-36) % RDW 14.0 (11.6-14.8) % Plt Count 369 (150-400) X10^3/uL Neut % (Auto) 91.0 H (50-75) % Lymph % (Auto) 4.3 L (25-40) % [place] % (Auto) 4.5 (3-14) % Eos % (Auto) 0.0 L (2-4) % Baso % (Auto) 0.2 (0-2) % Neut # (Auto) 29683 H (5338-5443) /uL Lymph # (Auto) 800 L (6500-0044) /uL [place] # (Auto) 900 (0-900) /uL Eos # (Auto) 0 (0-450) /uL Baso # (Auto) 0 (0-100) /uL PT 11.5 (10.1-12.7) SECONDS INR 1.0 (0.9-1.3) APTT 31 (26.4-36.2) SECONDS ABG pH (7.35-7.45) ABG pCO2 (35-45) mmHg ABG pO2 (80-100) mmHg ABG HCO3 (22-26) mmol/L ABG Total CO2 (21-31) mmol/L ABG O2 Saturation (95-100) % ABG Base Excess (-2-2) mmol/L FiO2 Sodium 145 (137-145) mmol/L Potassium 4.5 (3.4-5.1) mmol/L Chloride 100 (98-107) mmol/L Carbon Dioxide 19 L (22-32) mmol/L BUN 35 H (7-17) mg/dL Creatinine 0.90 (0.52-1.04) mg/dL Estimated GFR > 60 (>60) mL/min BUN/Creatinine Ratio 38.9 H (6-22) Glucose 616 H* (80-110) mg/dL Hemoglobin A1c (4.0-6.0) % Lactate (0.7-2.1) mmol/L Calcium 10.5 H (8.4-10.2) mg/dL Magnesium 1.8 (1.6-2.3) mg/dL Total Bilirubin 0.5 (0.2-1.3) mg/dL AST 56 H (14-36) IU/L ALT 39 H (<35) IU/L Alkaline Phosphatase 91 (38-126) U/L Total Creatine Kinase 688 H (30-135) U/L CK-MB (CK-2) 8.57 H (<2.37) ng/mL CK-MB (CK-2) Rel Index 1.2 L (1.5-5.0) % Troponin I 0.051 H (0.01-0.034) ng/mL Total Protein 7.9 (6.3-8.2) g/dL Albumin 4.8 (3.5-5.0) g/dL Globulin 3.1 (1.7-4.1) g/dL Albumin/Globulin Ratio 1.5 (1.0-2.8) Lipase 54 (23-300) U/L Vitamin B12 (239-931) pg/mL Urine Color Urine Appearance Urine pH (4.5-8.0) Ur Specific [place] (1.000-1.035) Urine Protein (Negative) Urine Glucose (UA) (Negative) g/dL Urine Ketones (NEGATIVE) Urine Occult Blood (Negative) Urine Nitrate (Negative) Urine Bilirubin (NEGATIVE) Urine Urobilinogen (0.2) E.U./dL Ur Leukocyte Esterase (NEGATIVE) Urine RBC (0-5/HPF) Urine WBC (0-5/HPF) Urine Bacteria (None) Ur Culture Indicated? Ketones (<0.27) mmol/L SARS-CoV-2 (PCR) (Negative) 12/18/21 12/18/21 12/18/21 Range/Units 10:00 10:00 10:08 WBC (4.5-11.0) X10^3/uL RBC (4.0-5.2) X10^6/uL Hgb (12.0-16.0) g/dL Hct (36-46) % MCV (80-100) fL MCH (26-34) PG MCHC (30-36) % RDW (11.6-14.8) % Plt Count (150-400) X10^3/uL Neut % (Auto) (50-75) % Lymph % (Auto) (25-40) % [place] % (Auto) (3-14) % Eos % (Auto) (2-4) % Baso % (Auto) (0-2) % Neut # (Auto) (0084-3821) /uL Lymph # (Auto) (0331-8692) /uL [place] # (Auto) (0-900) /uL Eos # (Auto) (0-450) /uL Baso # (Auto) (0-100) /uL PT (10.1-12.7) SECONDS INR (0.9-1.3) APTT (26.4-36.2) SECONDS ABG pH (7.35-7.45) ABG pCO2 (35-45) mmHg ABG pO2 (80-100) mmHg ABG HCO3 (22-26) mmol/L ABG Total CO2 (21-31) mmol/L ABG O2 Saturation (95-100) % ABG Base Excess (-2-2) mmol/L FiO2 Sodium (137-145) mmol/L Potassium (3.4-5.1) mmol/L Chloride (98-107) mmol/L Carbon Dioxide (22-32) mmol/L BUN (7-17) mg/dL Creatinine (0.52-1.04) mg/dL Estimated GFR (>60) mL/min BUN/Creatinine Ratio (6-22) Glucose (80-110) mg/dL Hemoglobin A1c 11.1 H (4.0-6.0) % Lactate 2.2 H (0.7-2.1) mmol/L Calcium (8.4-10.2) mg/dL Magnesium (1.6-2.3) mg/dL Total Bilirubin (0.2-1.3) mg/dL AST (14-36) IU/L ALT (<35) IU/L Alkaline Phosphatase (38-126) U/L Total Creatine Kinase (30-135) U/L CK-MB (CK-2) (<2.37) ng/mL CK-MB (CK-2) Rel Index (1.5-5.0) % Troponin I (0.01-0.034) ng/mL Total Protein (6.3-8.2) g/dL Albumin (3.5-5.0) g/dL Globulin (1.7-4.1) g/dL Albumin/Globulin Ratio (1.0-2.8) Lipase (23-300) U/L Vitamin B12 > 1000 H (239-931) pg/mL Urine Color Urine Appearance Urine pH (4.5-8.0) Ur Specific [place] (1.000-1.035) Urine Protein (Negative) Urine Glucose (UA) (Negative) g/dL Urine Ketones (NEGATIVE) Urine Occult Blood (Negative) Urine Nitrate (Negative) Urine Bilirubin (NEGATIVE) Urine Urobilinogen (0.2) E.U./dL Ur Leukocyte Esterase (NEGATIVE) Urine RBC (0-5/HPF) Urine WBC (0-5/HPF) Urine Bacteria (None) Ur Culture Indicated? Ketones (<0.27) mmol/L SARS-CoV-2 (PCR) (Negative) 12/18/21 12/18/21 12/18/21 Range/Units 10:26 10:26 10:51 WBC (4.5-11.0) X10^3/uL RBC (4.0-5.2) X10^6/uL Hgb (12.0-16.0) g/dL Hct (36-46) % MCV (80-100) fL MCH (26-34) PG MCHC (30-36) % RDW (11.6-14.8) % Plt Count (150-400) X10^3/uL Neut % (Auto) (50-75) % Lymph % (Auto) (25-40) % [place] % (Auto) (3-14) % Eos % (Auto) (2-4) % Baso % (Auto) (0-2) % Neut # (Auto) (8722-5101) /uL Lymph # (Auto) (4418-4624) /uL [place] # (Auto) (0-900) /uL Eos # (Auto) (0-450) /uL Baso # (Auto) (0-100) /uL PT (10.1-12.7) SECONDS INR (0.9-1.3) APTT (26.4-36.2) SECONDS ABG pH 7.28 L* (7.35-7.45) ABG pCO2 42.0 (35-45) mmHg ABG pO2 76 L (80-100) mmHg ABG HCO3 20 L (22-26) mmol/L ABG Total CO2 21 (21-31) mmol/L ABG O2 Saturation 93 L (95-100) % ABG Base Excess -7.0 L (-2-2) mmol/L FiO2 21 Sodium (137-145) mmol/L Potassium (3.4-5.1) mmol/L Chloride (98-107) mmol/L Carbon Dioxide (22-32) mmol/L BUN (7-17) mg/dL Creatinine (0.52-1.04) mg/dL Estimated GFR (>60) mL/min BUN/Creatinine Ratio (6-22) Glucose (80-110) mg/dL Hemoglobin A1c (4.0-6.0) % Lactate (0.7-2.1) mmol/L Calcium (8.4-10.2) mg/dL Magnesium (1.6-2.3) mg/dL Total Bilirubin (0.2-1.3) mg/dL AST (14-36) IU/L ALT (<35) IU/L Alkaline Phosphatase (38-126) U/L Total Creatine Kinase (30-135) U/L CK-MB (CK-2) (<2.37) ng/mL CK-MB (CK-2) Rel Index (1.5-5.0) % Troponin I (0.01-0.034) ng/mL Total Protein (6.3-8.2) g/dL Albumin (3.5-5.0) g/dL Globulin (1.7-4.1) g/dL Albumin/Globulin Ratio (1.0-2.8) Lipase (23-300) U/L Vitamin B12 (239-931) pg/mL Urine Color Yellow Urine Appearance Clear Urine pH 5.0 (4.5-8.0) Ur Specific [place] 1.015 (1.000-1.035) Urine Protein Trace H (Negative) Urine Glucose (UA) 2+ H (Negative) g/dL Urine Ketones 2+ H (NEGATIVE) Urine Occult Blood 3+ H (Negative) Urine Nitrate Negative (Negative) Urine Bilirubin Negative (NEGATIVE) Urine Urobilinogen 0.2 (0.2) E.U./dL Ur Leukocyte Esterase Negative (NEGATIVE) Urine RBC 10-30/hpf H (0-5/HPF) Urine WBC None seen (0-5/HPF) Urine Bacteria None seen (None) Ur Culture Indicated? Cult not indicated Ketones (<0.27) mmol/L SARS-CoV-2 (PCR) Negative (Negative) 12/18/21 Range/Units 11:34 WBC (4.5-11.0) X10^3/uL RBC (4.0-5.2) X10^6/uL Hgb (12.0-16.0) g/dL Hct (36-46) % MCV (80-100) fL MCH (26-34) PG MCHC (30-36) % RDW (11.6-14.8) % Plt Count (150-400) X10^3/uL Neut % (Auto) (50-75) % Lymph % (Auto) (25-40) % [place] % (Auto) (3-14) % Eos % (Auto) (2-4) % Baso % (Auto) (0-2) % Neut # (Auto) (9456-7197) /uL Lymph # (Auto) (8732-6098) /uL [place] # (Auto) (0-900) /uL Eos # (Auto) (0-450) /uL Baso # (Auto) (0-100) /uL PT (10.1-12.7) SECONDS INR (0.9-1.3) APTT (26.4-36.2) SECONDS ABG pH (7.35-7.45) ABG pCO2 (35-45) mmHg ABG pO2 (80-100) mmHg ABG HCO3 (22-26) mmol/L ABG Total CO2 (21-31) mmol/L ABG O2 Saturation (95-100) % ABG Base Excess (-2-2) mmol/L FiO2 Sodium (137-145) mmol/L Potassium (3.4-5.1) mmol/L Chloride (98-107) mmol/L Carbon Dioxide (22-32) mmol/L BUN (7-17) mg/dL Creatinine (0.52-1.04) mg/dL Estimated GFR (>60) mL/min BUN/Creatinine Ratio (6-22) Glucose (80-110) mg/dL Hemoglobin A1c (4.0-6.0) % Lactate (0.7-2.1) mmol/L Calcium (8.4-10.2) mg/dL Magnesium (1.6-2.3) mg/dL Total Bilirubin (0.2-1.3) mg/dL AST (14-36) IU/L ALT (<35) IU/L Alkaline Phosphatase (38-126) U/L Total Creatine Kinase (30-135) U/L CK-MB (CK-2) (<2.37) ng/mL CK-MB (CK-2) Rel Index (1.5-5.0) % Troponin I (0.01-0.034) ng/mL Total Protein (6.3-8.2) g/dL Albumin (3.5-5.0) g/dL Globulin (1.7-4.1) g/dL Albumin/Globulin Ratio (1.0-2.8) Lipase (23-300) U/L Vitamin B12 (239-931) pg/mL Urine Color Urine Appearance Urine pH (4.5-8.0) Ur Specific [place] (1.000-1.035) Urine Protein (Negative) Urine Glucose (UA) (Negative) g/dL Urine Ketones (NEGATIVE) Urine Occult Blood (Negative) Urine Nitrate (Negative) Urine Bilirubin (NEGATIVE) Urine Urobilinogen (0.2) E.U./dL Ur Leukocyte Esterase (NEGATIVE) Urine RBC (0-5/HPF) Urine WBC (0-5/HPF) Urine Bacteria (None) Ur Culture Indicated? Ketones 8.81 H (<0.27) mmol/L SARS-CoV-2 (PCR) (Negative) Point of Care Testing Glucose POC [address] scan - head: Radiologist's Impression: Cee Stockton??86??F??1935 ? Allergy/Adv: aspirin Close Pelvis X-Ray (Signed) Karime Ervin - 12/18/[address] (Signed) Karime Ervin - 12/18/[address] (Signed) Karime Ervin - 12/18/21 Chest X-Ray (Signed) Karime Ervin - 12/18/21 Abdomen/Pelvis CT (Signed) Renee Mack - 06/09/20 Hand X-Ray (Signed) Kade Terrell - 06/02/19 Radiology - Historical 03/02/17 Launch?[place] [address] CT Scan Report Signed Patient: Cee Stockton MR#: [id number] : 1935 Acct:[id number] Age/Sex: 86 / F Date of Service: 12/18/21 Loc: ED Accession Number: [id number] ?? Procedure: CT cervical spine wo con Ordering Provider: Genie Stevens D.O. PROCEDURE:? CT CERVICAL SPINE WO CON ? INDICATIONS:? fall, ? hit head, confusion, swazi speaking ? TECHNIQUE:? Noncontrast 3 mm thick sections acquired from the skull base to the T4 level.? Sagittal and coronal reformats were then constructed.? For radiation dose reduction, the following was used:? automated exposure control, adjustment of mA and/or kV according to patient size.? ? COMPARISON:? None. ? FINDINGS:? Image quality:? Excellent.? ? Bones:? No fractures or dislocations.? Visualized superior ribs are intact. Spine degenerative disc disease and facet arthropathy. ? Soft tissues:? Prevertebral soft tissues are normal in thickness.? 1 centimeter calcified left thyroid nodule.? No paravertebral hematomas.? No apical pneumothoraces.? 3 millimeter calcified granuloma in the right lung apex.? ? ? IMPRESSION:? No fracture. No acute osseous lesion. If symptoms and/or clinical suspicion for pathology persists, evaluation with MRI should be considered for further assessment. ? ? ? Dictated by: Karime Ervni MD, PhD on 12/18/2021 at 10:23 ? ? Approved by: Karime Ervin MD, PhD on 12/18/2021 at 10:27? CT - cervical spine: Radiologist's Impression: Cee Stockton??86??F??1935 ? Allergy/Adv: aspirin Close Pelvis X-Ray (Signed) ArcadioKraime - 12/18/[address] (Signed) Arcadio,Karime - 12/18/[address] (Signed) ArcadioKarime - 12/18/21 Chest X-Ray (Signed) ArcadioKarime - 12/18/21 Abdomen/Pelvis CT (Signed) Renee Mack - 06/09/20 Hand X-Ray (Signed) Kade Terrell - 06/02/19 Radiology - Historical 03/02/17 Launch?[place] [address] CT Scan Report Signed Patient: Cee Stockton MR#: [id number] : 1935 Acct:[id number] Age/Sex: 86 / F Date of Service: 12/18/21 Loc: ED Accession Number: [id number] ?? Procedure: CT head/brain wo con Ordering Provider: Genie Stevens D.O. PROCEDURE:? CT HEAD/BRAIN WO CON ? INDICATIONS:? fall, ? hit head, confusion, swazi speaking ? TECHNIQUE:? Noncontrast 4.5 mm thick angled axial sections acquired from the foramen magnum to the vertex, with coronal and sagittal reformats.? For radiation dose reduction, the following was used:? automated exposure control, adjustment of mA and/or kV according to patient size.? ? COMPARISON:? None. ? FINDINGS:? Image quality:? Excellent.? ? CSF spaces:? Basal cisterns are patent.? No extra-axial fluid collections.? The ventricles are symmetric in size and shape.? ? Brain:? No intracranial bleeds or masses.? There is cerebral volume loss for age, with resultant ventricular and sulcal prominence.? There are periventricular and deep white matter chronic small vessel ischemic changes.? There is intracranial internal carotid artery and vertebral artery atherosclerosis.? ? Skull and face:? Calvarium and visualized facial bones appear intact, without suspicious lesions.? ? Sinuses:? Visualized sinuses and mastoids are clear.? ? IMPRESSION:? No acute intracranial disease process. ? ? Dictated by: Karime Ervin MD, PhD on 12/18/2021 at 10:27 ? ? Approved by: Karime Ervin MD, PhD on 12/18/2021 at 10:28?? Chest x-ray: Radiologist's Impression: Cee Stockton??86??F??1935 ? Allergy/Adv: aspirin Close Pelvis X-Ray (Signed) Karime Ervin - 12/18/[address] (Signed) Karime Ervin - 12/18/[address] (Signed) Karime Ervin - 12/18/21 Chest X-Ray (Signed) Karime Ervin - 12/18/21 Abdomen/Pelvis CT (Signed) Renee Mack - 06/09/20 Hand X-Ray (Signed) Kade Terrell - 06/02/19 Radiology - Historical 03/02/17 Launch?[place] [address] XRay Report Signed Patient: Cee Stockton MR#: [id number] : 1935 Acct:[id number] Age/Sex: 86 / F Date of Service: 12/18/21 Loc: Accession Number: [id number] ?? Procedure: XR chest 1V Ordering Provider: Genie Stevens D.O. PROCEDURE:? XR CHEST 1V ? INDICATIONS:? chest pain ? TECHNIQUE:? One view of the chest was acquired.? ? COMPARISON:? [facility], , XR CHEST 2 VIEWS, 12/10/2018, 17:32. ? FINDINGS:? ? Surgical changes and devices:? None.? ? Lungs and pleura:? Lungs are clear.? Bibasilar bronchiectasis is stable.? No pleural effusions or pneumothorax.? ? Mediastinum:? Mediastinal contours appear normal.? Heart size is normal.? ? Bones and chest wall:? No suspicious bony lesions.? Overlying soft tissues appear unremarkable.? ? IMPRESSION:? No acute cardiopulmonary disease process. ? ? Dictated by: Karime Ervin MD, PhD on 12/18/2021 at 10:28 ? ? Approved by: Karime Ervin MD, PhD on 12/18/2021 at 10:29?? pelvic xray: Radiologist's Impression: [address] [address] XRay Report Signed Patient: Cee Stockton MR#: [id number] : 1935 Acct:[id number] Age/Sex: 86 / F Date of Service: 12/18/21 Loc: ED Accession Number: [id number] ?? Procedure: XR pelvis 1-2V Ordering Provider: Genie Stevens D.O. PROCEDURE:? XR PELVIS 1-2V ? INDICATIONS:? fall ? TECHNIQUE:? 1 view(s) of the pelvis acquired.? ? COMPARISON:? None. ? FINDINGS:? ? Bones:? No fractures or dislocations.? No suspicious bony lesions.? Moderate bilateral hip osteoarthritis.? ? Soft tissues:? Visualized bowel gas pattern is normal.? No suspicious soft tissue calcifications.? ? IMPRESSION:? No fracture. No osseous lesion. If symptoms and/or clinical suspicion for pathology persists, further assessment with repeat radiographs (7-10 days) or advanced imaging (e.g. CT, MRI or bone scan) should be considered. ? ? Dictated by: Karime Ervin MD, PhD on 12/18/2021 at 10:29 ? ? Approved by: Karime Ervin MD, PhD on 12/18/2021 at 10:29?? ECG Data Attestation: I personally reviewed and interpreted this ECG as follows: Prior ECG tracings: available for review Interpretation: Sinus tachycardia, rate of 102 CT 134 QRS 86 and QTC 471. Q-wave in lead [address] and AVF. No acute ST elevation depression noted. Patient has prior EKG from 06/09/2020 which appears similar. MDM Narrative Medical decision making narrative: This is an 86-year-old female found down last seen yesterday at home. She does appear confused she is [place]-speaking but with the hop separator is confused when family arrives states the same as well. She has a leukocytosis, this could be reactive. She appears to be in DKA with a glucose of 660, anion gap of 26, pH of 7.2 and a bicarb of 19, potassium is 4.5 a sodium of 148. Patient's BUN is elevated, her troponin was elevated but without acute EKG changes. Patient did have head CT which is negative, chest x-ray and pelvic x-ray which is negative. Lactate was elevated but is improving with fluids. She does have changes on her is inconsistent with being on the floor for prolonged period of time. Case was discussed with the hospitalist who kindly accepts. Patient has been initiated with 2 L fluid bolus, DKA protocol with insulin drip, and S fluids and potassium replacement based on her current potassium level. Critical Care Time Critical Care Time Critical Care Time: Yes Total Critical Care Time: 45 Attestation: The high probability of a clinically significant, sudden or life threatening deterioration of the [cardiac, pulm] system(s) required my full and direct attention, intervention and personal management. The aggregate critical care time was [] minutes. This time is in addition to time spent performing reported procedures but includes the following: [x] Data Review and interpretation [x] Patient assessment and monitoring of vital signs [x] Documentation [x] Medication orders and management Discharge Plan Departure Patient Disposition: Admitted As Inpatient Clinical Impression: DKA (diabetic ketoacidosis), Rhabdomyolysis, Confusion Admit Date/Time: 12/18/21 11:45 Admit Provider: Jimena Ramey
--- NOTE | 2021-12-18 09:28 | DI.RAD.S_ITS ---
PROCEDURE: XR CHEST 1V INDICATIONS: chest pain TECHNIQUE: One view of the chest was acquired. COMPARISON: [facility], CR, XR CHEST 2 VIEWS, 12/10/2018, 17:32. FINDINGS: Surgical changes and devices: None. Lungs and pleura: Lungs are clear. Bibasilar bronchiectasis is stable. No pleural effusions or pneumothorax. Mediastinum: Mediastinal contours appear normal. Heart size is normal. Bones and chest wall: No suspicious bony lesions. Overlying soft tissues appear unremarkable. IMPRESSION: No acute cardiopulmonary disease process. Dictated by: Karime Ervin MD, PhD on 12/18/2021 at 10:28 Approved by: Karime Ervin MD, PhD on 12/18/2021 at 10:29
--- NOTE | 2021-12-18 09:52 | DI.CT.S_ITS ---
PROCEDURE: CT HEAD/BRAIN WO CON INDICATIONS: fall, ? hit head, confusion, bahamian speaking TECHNIQUE: Noncontrast 4.5 mm thick angled axial sections acquired from the foramen magnum to the vertex, with coronal and sagittal reformats. For radiation dose reduction, the following was used: automated exposure control, adjustment of mA and/or kV according to patient size. COMPARISON: None. FINDINGS: Image quality: Excellent. CSF spaces: Basal cisterns are patent. No extra-axial fluid collections. The ventricles are symmetric in size and shape. Brain: No intracranial bleeds or masses. There is cerebral volume loss for age, with resultant ventricular and sulcal prominence. There are periventricular and deep white matter chronic small vessel ischemic changes. There is intracranial internal carotid artery and vertebral artery atherosclerosis. Skull and face: Calvarium and visualized facial bones appear intact, without suspicious lesions. Sinuses: Visualized sinuses and mastoids are clear. IMPRESSION: No acute intracranial disease process. Dictated by: Karime Ervni MD, PhD on 12/18/2021 at 10:27 Approved by: Karime Ervin MD, PhD on 12/18/2021 at 10:28
--- NOTE | 2021-12-18 09:52 | DI.CT.S_ITS ---
PROCEDURE: CT CERVICAL SPINE WO CON INDICATIONS: fall, ? hit head, confusion, wallisian speaking TECHNIQUE: Noncontrast 3 mm thick sections acquired from the skull base to the T4 level. Sagittal and coronal reformats were then constructed. For radiation dose reduction, the following was used: automated exposure control, adjustment of mA and/or kV according to patient size. COMPARISON: None. FINDINGS: Image quality: Excellent. Bones: No fractures or dislocations. Visualized superior ribs are intact. Spine degenerative disc disease and facet arthropathy. Soft tissues: Prevertebral soft tissues are normal in thickness. 1 centimeter calcified left thyroid nodule. No paravertebral hematomas. No apical pneumothoraces. 3 millimeter calcified granuloma in the right lung apex. IMPRESSION: No fracture. No acute osseous lesion. If symptoms and/or clinical suspicion for pathology persists, evaluation with MRI should be considered for further assessment. Dictated by: Karime Ervin MD, PhD on 12/18/2021 at 10:23 Approved by: Karime Ervin MD, PhD on 12/18/2021 at 10:27
--- NOTE | 2021-12-18 09:52 | DI.RAD.S_ITS ---
PROCEDURE: XR PELVIS 1-2V INDICATIONS: fall TECHNIQUE: 1 view(s) of the pelvis acquired. COMPARISON: None. FINDINGS: Bones: No fractures or dislocations. No suspicious bony lesions. Moderate bilateral hip osteoarthritis. Soft tissues: Visualized bowel gas pattern is normal. No suspicious soft tissue calcifications. IMPRESSION: No fracture. No osseous lesion. If symptoms and/or clinical suspicion for pathology persists, further assessment with repeat radiographs (7-10 days) or advanced imaging (e.g. CT, MRI or bone scan) should be considered. Dictated by: Karime Ervin MD, PhD on 12/18/2021 at 10:29 Approved by: Karime Ervin MD, PhD on 12/18/2021 at 10:29
[2021-12-18 10:09] LABS: Add Manual Diff / Slide Review NO; Basophils Absolute Auto 0 /uL (0-100); Basophils Percent Auto 0.2 % (0-2); Eosinophils Absolute Auto 0 /uL (0-450); Hematocrit 39.8 % (36-46); Hemoglobin 12.8 g/dL (12.0-16.0); Lymphocytes Absolute Auto 800 /uL (1100-4500); Lymphocytes Percent Auto 4.3 % (25-40); Mean Corpuscular HGB Conc 32.1 % (30-36); Mean Corpuscular Hemoglobin 30.3 PG (26-34); Mean Corpuscular Volume 94.3 fL (80-100); Monocytes Absolute Auto 900 /uL (0-900); Monocytes Percent Auto 4.5 % (3-14); Neutrophils Absolute Auto 17400 /uL (1500-7000); Platelet Count 369 X10^3/uL (150-400); Red Blood Cell Count 4.22 X10^6/uL (4.0-5.2); White Blood Cell Count 19.1 X10^3/uL (4.5-11.0)
[2021-12-18 10:15] LABS: Prothrombin Time 11.5 SECONDS (10.1-12.7)
[2021-12-18 10:18] LABS: PTT Partial Thromboplastin Tim 31 SECONDS (26.4-36.2)
[2021-12-18] MEDS: SODIUM CHLORIDE 0.9% 1,000 ML 1000 ML IV ×2 (10:18→11:21)
[2021-12-18 10:21] LABS: Alanine Aminotransferase 39 IU/L (<35); Albumin 4.8 g/dL (3.5-5.0); Albumin Globulin Ratio 1.5 (1.0-2.8); Alkaline Phosphatase 91 U/L (38-126); Aspartate Aminotransferase 56 IU/L (14-36); BUN Creatinine Ratio 38.9 (6-22); Bilirubin Total 0.5 mg/dL (0.2-1.3); Blood Urea Nitrogen 35 mg/dL (7-17); Calcium 10.5 mg/dL (8.4-10.2); Carbon Dioxide 19 mmol/L (22-32); Chloride 100 mmol/L (98-107); Creatine Kinase 688 U/L (30-135); Estimated Glomerular Filt Rate > 60 mL/min (>60); Globulin 3.1 g/dL (1.7-4.1); Lipase 54 U/L (23-300); Magnesium 1.8 mg/dL (1.6-2.3); Potassium 4.5 mmol/L (3.4-5.1); Sodium 145 mmol/L (137-145); Total Protein 7.9 g/dL (6.3-8.2)
[2021-12-18 10:22] LABS: Glucose 616 mg/dL (80-110)
[2021-12-18 10:31] LABS: Troponin I 0.051 ng/mL (0.01-0.034)
[2021-12-18 10:36] LABS: CKMB % Relative Index 1.2 % (1.5-5.0); Creatine Kinase MB 8.57 ng/mL (<2.37); HEMOLYSIS 30 (0-50)
[2021-12-18 10:37] LABS: Appearance Urine UA CLEAR; Bilirubin Urine UA NEGATIVE (NEGATIVE); Color Urine UA YELLOW; Glucose Urine UA 2+ g/dL (Negative); Ketones Urine UA 2+ (NEGATIVE); Leukocyte Esterase Urine UA NEGATIVE (NEGATIVE); Nitrite Urine UA NEGATIVE (Negative); Occult Blood Urine UA 3+ (Negative); Protein Urine UA TRACE (Negative); Specific Gravity Urine UA 1.015 (1.000-1.035); Urobilinogen Urine UA 0.2 E.U./dL (0.2)
[2021-12-18 10:39] LABS: Lactate (Lactic Acid) 2.2 mmol/L (0.7-2.1)
[2021-12-18 10:41] LABS: Bacteria Urine None Seen; Culture Indicated Urine Cult Not Indicated; RBC Urine 10-30/HPF (0-5/HPF); WBC Urine None Seen (0-5/HPF)
[2021-12-18 10:48] LABS: COVID19 -Nasal RAPID Negative (Negative)
[2021-12-18 11:04] LABS: HCO3 ABG 20 mmol/L (22-26); PO2 ABG 76 mmHg (80-100); TCO2 ABG 21 mmol/L (21-31); pH ABG 7.28 (7.35-7.45)
[2021-12-18 11:05] LABS: Fractionated Inspired Oxygen 21; Oxygen Saturation ABG 93 % (95-100)
[2021-12-18 11:45] LABS: Ketones (Beta-Hydroxybutyrate) 8.81 mmol/L (<0.27)
[2021-12-18] MEDS: INSULIN DRIP PREMIX 100 UNIT/100 ML PLAST..BAG 6 UNIT IV (12:29)
[2021-12-18 12:30] LABS: Reflexed Lactate in 2 Hours Y
[2021-12-18] MEDS: SODIUM CHLORIDE 0.9% 1,000 ML 200 ML IV (12:32)
[2021-12-18] MEDS: POTASSIUM CHLORIDE 10 MEQ in SODIUM CHLORIDE 0.9% 100 ML 105 ML IV ×5 (12:32→18:25)
[2021-12-18 14:27] LABS: BUN Creatinine Ratio 45.1 (6-22); Blood Urea Nitrogen 32 mg/dL (7-17); Calcium 9.1 mg/dL (8.4-10.2); Carbon Dioxide 23 mmol/L (22-32); Chloride 111 mmol/L (98-107); Estimated Glomerular Filt Rate > 60 mL/min (>60); Glucose 361 mg/dL (80-110); HEMOLYSIS < 15 (0-50); Potassium 3.7 mmol/L (3.4-5.1); Sodium 146 mmol/L (137-145)
--- NOTE | 2021-12-18 15:41 | P.HP_ITS ---
History of Present Illness History of Present Illness Date Patient Seen: 12/18/21 Time Patient Seen: 15:42 Chief complaint: Found down Narrative: 86-year-old female with a history of type 2 diabetes, hypertension, hypothyroidism, hyperlipidemia who was found down at home and unresponsive.The patient is primarily [place]an-speaking, history is obtained through her daughter who is interpreting and reports the history. Apparently the patient has caregivers with her 7 days a week. Her son was supposed to be with her over the weekend but left her to run to his home in [place] to obtain something. While he was gone the patient reports she was getting out of a shower tripped and fell. 1 she was down on the ground she was unable to get up. Patient has a medic alert bracelet necklace but she failed to activated. It is believed that the patient was down for approximately 12 hours. She denies any headache neck pain chest pain or shortness of breath. She had no nausea vomiting or diarrhea. The patient was brought into the emergency room for further evaluation. In the emergency room the patient had a head CT which was unremarkable. She had a chest x-ray which was negative. Cervical spine films which were also negative. An EKG which showed sinus rhythm and an old inferior infarct but no acute ST-T changes. Her initial troponin was elevated at 0.051. Patient was found to be in DKA. Upon admission her blood sugar was 616. Bicarb was 19. Initial lactate was 2, repeat lactate of 1. The patient was [place]feb[place]. [place] [address]. IV fluids in the emergency department and started on an insulin drip and transferred to the intensive care unit. At this time the patient is arousable, she is responsive, able to follow commands. Patient is admitted to the hospital for diabetic ketoacidosis. Patient History Medical History (Updated 12/18/21 @ 15:45 by Jimena Ramey MD) Hyperlipidemia Hypertension Hypothyroidism Type 2 diabetes mellitus Surgical History (Updated 12/18/21 @ 15:47 by Jimena Ramey MD) History of bilateral knee replacement History of cataract removal with insertion of prosthetic lens Status post cholecystectomy Family & Social History Family History Brother High cholesterol Stroke Safety & Behavioral: Feels Safe in Current Yes Environment Been Physically Hurt or No Threatened By a Person Tobacco & Substance use: Smoking Status Never smoker alcohol intake frequency 0-2 drinks per day Substance Use Type does not use Meds Home Medications and Allergies Home Medications Medication Instructions Recorded Confirmed Type metformin 1,000 mg tablet 1,000 mg PO BIDCC #180 tab 06/10/17 12/18/21 Rx (Glucophage) simvastatin 20 mg tablet 20 mg PO HS #90 tab 06/10/17 12/18/21 Rx blood sugar diagnostic (OneTouch 12/18/21 12/18/21 History Verio test strips) diclofenac sodium 1 % topical gel 2 g TOPICAL QID PRN 12/18/21 12/18/21 History glipizide 5 mg tablet 5 mg PO BID 12/18/21 12/18/21 History levothyroxine 75 mcg tablet 75 mcg PO QAM 12/18/21 12/18/21 History lidocaine 5 % topical patch 1 patch TOPICAL DAILY 12/18/21 12/18/21 History lisinopril 10 mg tablet 10 mg PO DAILY 12/18/21 12/18/21 History Allergies Allergy/AdvReac Type Severity Reaction Status Date / Time aspirin [ASPIRIN] AdvReac Mild NAUSEA Verified 12/18/21 09:28 Review of Systems Review of Systems Narrative: 10 point review of systems is negative except as above Exam Vital Signs (past 8 hours): - 12/18/21 09:05 12/18/21 09:22 12/18/21 09:30 Temperature 97.1 F L Pulse Rate 105 H 102 H 100 H Respiratory Rate 24 Blood Pressure 134/62 137/59 L Pulse Oximetry 99 97 97 12/18/21 09:46 12/18/21 10:06 12/18/21 10:11 Temperature Pulse Rate 99 H 100 H 98 H Respiratory Rate 21 Blood Pressure 137/61 103/53 L Pulse Oximetry 96 95 12/18/21 10:15 12/18/21 10:30 12/18/21 10:45 Temperature Pulse Rate 96 H 93 H 94 H Respiratory Rate 18 20 25 H Blood Pressure 110/56 L 111/54 L 119/56 L Pulse Oximetry 97 93 95 12/18/21 11:00 12/18/21 11:15 12/18/21 11:30 Temperature Pulse Rate 92 H 93 H 96 H Respiratory Rate 24 32 H 33 H Blood Pressure 135/64 142/65 H 140/62 Pulse Oximetry 95 95 96 04/18/22 11:45 12/18/21 12:00 12/18/21 12:01 Temperature Pulse Rate 97 H 95 H 96 H Respiratory Rate 28 H 24 21 Blood Pressure 138/60 144/62 H Pulse Oximetry 97 97 97 12/18/21 12:15 12/18/21 12:30 12/18/21 12:45 Temperature Pulse Rate 94 H 94 H 95 H Respiratory Rate 24 23 22 Blood Pressure 138/65 166/68 H 142/65 H Pulse Oximetry 94 95 93 12/18/21 13:00 12/18/21 13:15 12/18/21 13:30 Temperature Pulse Rate 98 H 99 H 99 H Respiratory Rate 17 20 24 Blood Pressure 117/58 L 131/62 Pulse Oximetry 94 95 92 12/18/21 13:31 12/18/21 13:45 12/18/21 14:00 Temperature Pulse Rate 99 H 101 H 101 H Respiratory Rate 23 18 24 Blood Pressure 147/63 H 136/63 134/63 Pulse Oximetry 94 94 93 12/18/21 14:15 12/18/21 14:22 12/18/21 14:30 Temperature Pulse Rate 102 H 103 H 103 H Respiratory Rate 22 22 14 Blood Pressure 131/55 L 129/60 Pulse Oximetry 94 93 Oxygen Delivery Method Nasal Cannula Narrative Exam Narrative: Pleasant female lying in bed who appears comfortable and in no acute distress [facility] Other: HEENT: Normocephalic atraumatic, right chin with an area of erythema corre sponding to where she was leading on her face, oropharynx is clear, neck is supple without adenopathy or thyromegaly Resp Other: Lungs clear to auscultation Cardio Other: Cardiac exam: Regular rate and rhythm normal S1-S2 with a 2/6 systolic ejection GI Other: Abdomen: Soft nontender nondistended Other: schulz catheter in place Neuro Other: Cranial Nerves intact, Strength symetric and equal, sensation intact, gait not assessed Extrem Other: No edema, well healed bilateral Total Knee replacement surgical scars Psych Other: Responsive to her daughter, appears lethargic but appropriate Objective Labs Result Diagrams: 12/18/21 10:00 12/18/21 14:05 Labs: Laboratory Results - last 24 hr 12/18/21 12/18/21 12/18/21 10:00 10:00 10:00 WBC 19.1 H RBC 4.22 Hgb 12.8 Hct 39.8 MCV 94.3 MCH 30.3 MCHC 32.1 RDW 14.0 Plt Count 369 Neut % (Auto) 91.0 H Lymph % (Auto) 4.3 L [place] % (Auto) 4.5 Eos % (Auto) 0.0 L Baso % (Auto) 0.2 Neut # (Auto) 99147 H Lymph # (Auto) 800 L [place] # (Auto) 900 Eos # (Auto) 0 Baso # (Auto) 0 PT 11.5 INR 1.0 APTT 31 ABG pH ABG pCO2 ABG pO2 ABG HCO3 ABG Total CO2 ABG O2 Saturation ABG Base Excess FiO2 Sodium 145 Potassium 4.5 Chloride 100 Carbon Dioxide 19 L BUN 35 H Creatinine 0.90 Estimated GFR > 60 BUN/Creatinine Ratio 38.9 H Glucose 616 H* Lactate Calcium 10.5 H Magnesium 1.8 Total Bilirubin 0.5 AST 56 H ALT 39 H Alkaline Phosphatase 91 Total Creatine Kinase 688 H CK-MB (CK-2) 8.57 H CK-MB (CK-2) Rel Index 1.2 L Troponin I 0.051 H Total Protein 7.9 Albumin 4.8 Globulin 3.1 Albumin/Globulin Ratio 1.5 Lipase 54 Urine Color Urine Appearance Urine pH Ur Specific [place] Urine Protein Urine Glucose (UA) Urine Ketones Urine Occult Blood Urine Nitrate Urine Bilirubin Urine Urobilinogen Ur Leukocyte Esterase Urine RBC Urine WBC Urine Bacteria Ur Culture Indicated? Ketones SARS-CoV-2 (PCR) 12/18/21 12/18/21 12/18/21 10:08 10:26 10:26 WBC RBC Hgb Hct MCV MCH MCHC RDW Plt Count Neut % (Auto) Lymph % (Auto) [place] % (Auto) Eos % (Auto) Baso % (Auto) Neut # (Auto) Lymph # (Auto) [place] # (Auto) Eos # (Auto) Baso # (Auto) PT INR APTT ABG pH ABG pCO2 ABG pO2 ABG HCO3 ABG Total CO2 ABG O2 Saturation ABG Base Excess FiO2 Sodium Potassium Chloride Carbon Dioxide BUN Creatinine Estimated GFR BUN/Creatinine Ratio Glucose Lactate 2.2 H Calcium Magnesium Total Bilirubin AST ALT Alkaline Phosphatase Total Creatine Kinase CK-MB (CK-2) CK-MB (CK-2) Rel Index Troponin I Total Protein Albumin Globulin Albumin/Globulin Ratio Lipase Urine Color Yellow Urine Appearance Clear Urine pH 5.0 Ur Specific [place] 1.015 Urine Protein Trace H Urine Glucose (UA) 2+ H Urine Ketones 2+ H Urine Occult Blood 3+ H Urine Nitrate Negative Urine Bilirubin Negative Urine Urobilinogen 0.2 Ur Leukocyte Esterase Negative Urine RBC 10-30/hpf H Urine WBC None seen Urine Bacteria None seen Ur Culture Indicated? Cult not indicated Ketones SARS-CoV-2 (PCR) Negative 12/18/21 12/18/21 12/18/21 10:51 11:34 12:52 WBC RBC Hgb Hct MCV MCH MCHC RDW Plt Count Neut % (Auto) Lymph % (Auto) [place] % (Auto) Eos % (Auto) Baso % (Auto) Neut # (Auto) Lymph # (Auto) [place] # (Auto) Eos # (Auto) Baso # (Auto) PT INR APTT ABG pH 7.28 L* ABG pCO2 42.0 ABG pO2 76 L ABG HCO3 20 L ABG Total CO2 21 ABG O2 Saturation 93 L ABG Base Excess -7.0 L FiO2 21 Sodium Potassium Chloride Carbon Dioxide BUN Creatinine Estimated GFR BUN/Creatinine Ratio Glucose Lactate 1.0 Calcium Magnesium Total Bilirubin AST ALT Alkaline Phosphatase Total Creatine Kinase CK-MB (CK-2) CK-MB (CK-2) Rel Index Troponin I Total Protein Albumin Globulin Albumin/Globulin Ratio Lipase Urine Color Urine Appearance Urine pH Ur Specific [place] Urine Protein Urine Glucose (UA) Urine Ketones Urine Occult Blood Urine Nitrate Urine Bilirubin Urine Urobilinogen Ur Leukocyte Esterase Urine RBC Urine WBC Urine Bacteria Ur Culture Indicated? Ketones 8.81 H SARS-CoV-2 (PCR) 12/18/21 14:05 WBC RBC Hgb Hct MCV MCH MCHC RDW Plt Count Neut % (Auto) Lymph % (Auto) [place] % (Auto) Eos % (Auto) Baso % (Auto) Neut # (Auto) Lymph # (Auto) [place] # (Auto) Eos # (Auto) Baso # (Auto) PT INR APTT ABG pH ABG pCO2 ABG pO2 ABG HCO3 ABG Total CO2 ABG O2 Saturation ABG Base Excess FiO2 Sodium 146 H Potassium 3.7 Chloride 111 H Carbon Dioxide 23 BUN 32 H Creatinine 0.71 Estimated GFR > 60 BUN/Creatinine Ratio 45.1 H Glucose 361 H D Lactate Calcium 9.1 Magnesium Total Bilirubin AST ALT Alkaline Phosphatase Total Creatine Kinase CK-MB (CK-2) CK-MB (CK-2) Rel Index Troponin I Total Protein Albumin Globulin Albumin/Globulin Ratio Lipase Urine Color Urine Appearance Urine pH Ur Specific [place] Urine Protein Urine Glucose (UA) Urine Ketones Urine Occult Blood Urine Nitrate Urine Bilirubin Urine Urobilinogen Ur Leukocyte Esterase Urine RBC Urine WBC Urine Bacteria Ur Culture Indicated? Ketones SARS-CoV-2 (PCR) Assessment & Plan Assessment & Plan narrative: 86-year-old female with a history of type 2 diabetes, hypertension, hyperlipidemia, hypothyroidism who was found down now admitted to the hospital with diabetic ketoacidosis * Per the daughter patient slipped and fell and was unable to get up * Head CT negative for intracranial abnormality cervical spine film showed no acute osseous lesion * Chest x-ray were negative * Pelvic x-ray reveals no fracture * Blood sugar 616 on admission, initial bicarb low at 19, white count elevated at 19, serum sodium 146, hemoglobin A1c pending * Patient current on an insulin drip with improvement of blood sugars, will continue to monitor electrolytes closely * There is no obvious source of infection, UA shows 10-30 wbc's but no RBCs * Will hold glyburide, and metformin at this time, await hemoglobin A1c, continue insulin drip Acute metabolic encephalopathy * Likely secondary to hyperglycemia * appears to be improving * Will continue to monitor Hypertension * Continue lisinopril Hyperlipidemia * Continue statin Hypothyroidism * Continue L-thyroxine Elevated troponin * Suspect demand ischemia, 12 lead EKG does not reveal acute ST T wave abnormalities * Will continue to monitor closely Gait instability * Will obtain PT OT consultation * Will start Lovenox for DVT prophylaxis Will start diet, advanced as tolerated, Patient is a full code, she does not have a surrogate decision maker, she has 9 children 2 of whom live in the area I have utilized all available methods to review update confirm the patient's current medication Patient will be admitted as an inpatient Time Spent With Patient Critical Care time: I spent a total of [] minutes of critical care time on this patient's care today; this time is exclusive of procedural time.
--- NOTE | 2021-12-18 16:13 | P.TELICUCN_ITS ---
History of Present Illness Consult details Chief complaint: Found down :: This patient was seen via real time interactive two-way audiovisual telecommunication. Narrative: 86-year-old female with a history of DM II on oral hypoglycemic , HTN and hyp othyroidism, she was found down at home and un responsive after she tripped and fell/ was down for approximately 12 hours.? She denies any focal weakness, N,V, fever, chills, dysuria, headache, neck pain chest pain or shortness of breath.? She was found to have DKA. CXR Cervical spine CT, HCT, CTAP un remarkable ? Assessment: Acute encephalopathy likely metabolic 2/2 sever hyperglycemia Mild DKA HAGMA Lactic acidosis 2/2 metformin Leukocytosis likely reactive Mild trop elevation 2/2 demand ischemia Mildly elevated LFT ? Rec: Mental status improving, now AO x3 & non focal Continue IV insulin, fluid, electrolytes checks per DKA protocol Keep K above 4 while on insulin drip Low threshold of starting empiric AB if became febrile, f/u Cx Trend Trop, EKG, CPK Q6H and LFT daily Check TSH,B12 and ammonia levels 2 D echo Lovenox for DVT ppx PFSH Medical History (Updated 12/18/21 @ 15:45 by Jimena Ramey MD) Hyperlipidemia Hypertension Hypothyroidism Type 2 diabetes mellitus Surgical History (Updated 12/18/21 @ 15:47 by Jimena Ramey MD) History of bilateral knee replacement History of cataract removal with insertion of prosthetic lens Status post cholecystectomy Family History Brother High cholesterol Stroke Social History Smoking Status: Never smoker Current Medications Current Medications Medications: Home Medications metformin 1,000 mg tablet (Glucophage) 1,000 mg PO BIDCC #180 tab 06/10/17 [Rx Confirmed 12/18/21] simvastatin 20 mg tablet 20 mg PO HS #90 tab 06/10/17 [Rx Confirmed 12/18/21] blood sugar diagnostic ([employer] Verio test strips) 12/18/21 [History Confirmed 12/18/21] diclofenac sodium 1 % topical gel 2 g TOPICAL QID PRN 12/18/21 [History Confirmed 12/18/21] glipizide 5 mg tablet 5 mg PO BID 12/18/21 [History Confirmed 12/18/21] levothyroxine 75 mcg tablet 75 mcg PO QAM 12/18/21 [History Confirmed 12/18/21] lidocaine 5 % topical patch 1 patch TOPICAL DAILY 12/18/21 [History Confirmed 12/18/21] lisinopril 10 mg tablet 10 mg PO DAILY 12/18/21 [History Confirmed 12/18/21] Visit Medications (administered) Generic Name Dose Route Start Last Admin Trade Name Joe PRN Reason Stop Dose Admin INSULIN DRIP PREMIX 100 unit in 100 mls @ 6 mls/hr 12/18/21 11:45 12/18/21 15:15 Myxredlin Drip Premix IV 11 mls/hr TITRATE TRIPP Titration Protocol Exam Vital Signs (past 8 hours): - 12/18/21 09:05 12/18/21 09:22 12/18/21 09:30 Temperature 97.1 F L Pulse Rate 105 H 102 H 100 H Respiratory Rate 24 Blood Pressure 134/62 137/59 L Pulse Oximetry 99 97 97 12/18/21 09:46 12/18/21 10:06 12/18/21 10:11 Temperature Pulse Rate 99 H 100 H 98 H Respiratory Rate 21 Blood Pressure 137/61 103/53 L Pulse Oximetry 96 95 12/18/21 10:15 12/18/21 10:30 12/18/21 10:45 Temperature Pulse Rate 96 H 93 H 94 H Respiratory Rate 18 20 25 H Blood Pressure 110/56 L 111/54 L 119/56 L Pulse Oximetry 97 93 95 12/18/21 11:00 12/18/21 11:15 12/18/21 11:30 Temperature Pulse Rate 92 H 93 H 96 H Respiratory Rate 24 32 H 33 H Blood Pressure 135/64 142/65 H 140/62 Pulse Oximetry 95 95 96 12/18/21 11:45 12/18/21 12:00 12/18/21 12:01 Temperature Pulse Rate 97 H 95 H 96 H Respiratory Rate 28 H 24 21 Blood Pressure 138/60 144/62 H Pulse Oximetry 97 97 97 12/18/21 12:15 12/18/21 12:30 12/18/21 12:45 Temperature Pulse Rate 94 H 94 H 95 H Respiratory Rate 24 23 22 Blood Pressure 138/65 166/68 H 142/65 H Pulse Oximetry 94 95 93 12/18/21 13:00 12/18/21 13:15 12/18/21 13:30 Temperature Pulse Rate 98 H 99 H 99 H Respiratory Rate 17 20 24 Blood Pressure 117/58 L 131/62 Pulse Oximetry 94 95 92 12/18/21 13:31 12/18/21 13:45 12/18/21 14:00 Temperature Pulse Rate 99 H 101 H 101 H Respiratory Rate 23 18 24 Blood Pressure 147/63 H 136/63 134/63 Pulse Oximetry 94 94 93 12/18/21 14:15 12/18/21 14:22 12/18/21 14:25 Temperature 99.4 F Pulse Rate 102 H 103 H 105 H Respiratory Rate 22 22 30 H Blood Pressure 131/55 L 129/60 146/69 H Pulse Oximetry 94 93 92 12/18/21 14:30 Temperature Pulse Rate 103 H Respiratory Rate 14 Blood Pressure Pulse Oximetry Oxygen Delivery Method Nasal Cannula Oxygen Flow Rate 2 Objective Labs Result Diagrams: 12/18/21 10:00 12/18/21 14:05 Labs: Laboratory Results - last 24 hr 12/18/21 12/18/21 12/18/21 10:00 10:00 10:00 WBC 19.1 H RBC 4.22 Hgb 12.8 Hct 39.8 MCV 94.3 MCH 30.3 MCHC 32.1 RDW 14.0 Plt Count 369 Neut % (Auto) 91.0 H Lymph % (Auto) 4.3 L [place] % (Auto) 4.5 Eos % (Auto) 0.0 L Baso % (Auto) 0.2 Neut # (Auto) 24545 H Lymph # (Auto) 800 L [place] # (Auto) 900 Eos # (Auto) 0 Baso # (Auto) 0 PT 11.5 INR 1.0 APTT 31 ABG pH ABG pCO2 ABG pO2 ABG HCO3 ABG Total CO2 ABG O2 Saturation ABG Base Excess FiO2 Sodium 145 Potassium 4.5 Chloride 100 Carbon Dioxide 19 L BUN 35 H Creatinine 0.90 Estimated GFR > 60 BUN/Creatinine Ratio 38.9 H Glucose 616 H* Lactate Calcium 10.5 H Magnesium 1.8 Total Bilirubin 0.5 AST 56 H ALT 39 H Alkaline Phosphatase 91 Total Creatine Kinase 688 H CK-MB (CK-2) 8.57 H CK-MB (CK-2) Rel Index 1.2 L Troponin I 0.051 H Total Protein 7.9 Albumin 4.8 Globulin 3.1 Albumin/Globulin Ratio 1.5 Lipase 54 Urine Color Urine Appearance Urine pH Ur Specific [place] Urine Protein Urine Glucose (UA) Urine Ketones Urine Occult Blood Urine Nitrate Urine Bilirubin Urine Urobilinogen Ur Leukocyte Esterase Urine RBC Urine WBC Urine Bacteria Ur Culture Indicated? Ketones SARS-CoV-2 (PCR) 12/18/21 12/18/21 12/18/21 10:08 10:26 10:26 WBC RBC Hgb Hct MCV MCH MCHC RDW Plt Count Neut % (Auto) Lymph % (Auto) [place] % (Auto) Eos % (Auto) Baso % (Auto) Neut # (Auto) Lymph # (Auto) [place] # (Auto) Eos # (Auto) Baso # (Auto) PT INR APTT ABG pH ABG pCO2 ABG pO2 ABG HCO3 ABG Total CO2 ABG O2 Saturation ABG Base Excess FiO2 Sodium Potassium Chloride Carbon Dioxide BUN Creatinine Estimated GFR BUN/Creatinine Ratio Glucose Lactate 2.2 H Calcium Magnesium Total Bilirubin AST ALT Alkaline Phosphatase Total Creatine Kinase CK-MB (CK-2) CK-MB (CK-2) Rel Index Troponin I Total Protein Albumin Globulin Albumin/Globulin Ratio Lipase Urine Color Yellow Urine Appearance Clear Urine pH 5.0 Ur Specific [place] 1.015 Urine Protein Trace H Urine Glucose (UA) 2+ H Urine Ketones 2+ H Urine Occult Blood 3+ H Urine Nitrate Negative Urine Bilirubin Negative Urine Urobilinogen 0.2 Ur Leukocyte Esterase Negative Urine RBC 10-30/hpf H Urine WBC None seen Urine Bacteria None seen Ur Culture Indicated? Cult not indicated Ketones SARS-CoV-2 (PCR) Negative 12/18/21 12/18/21 12/18/21 10:51 11:34 12:52 WBC RBC Hgb Hct MCV MCH MCHC RDW Plt Count Neut % (Auto) Lymph % (Auto) [place] % (Auto) Eos % (Auto) Baso % (Auto) Neut # (Auto) Lymph # (Auto) [place] # (Auto) Eos # (Auto) Baso # (Auto) PT INR APTT ABG pH 7.28 L* ABG pCO2 42.0 ABG pO2 76 L ABG HCO3 20 L ABG Total CO2 21 ABG O2 Saturation 93 L ABG Base Excess -7.0 L FiO2 21 Sodium Potassium Chloride Carbon Dioxide BUN Creatinine Estimated GFR BUN/Creatinine Ratio Glucose Lactate 1.0 Calcium Magnesium Total Bilirubin AST ALT Alkaline Phosphatase Total Creatine Kinase CK-MB (CK-2) CK-MB (CK-2) Rel Index Troponin I Total Protein Albumin Globulin Albumin/Globulin Ratio Lipase Urine Color Urine Appearance Urine pH Ur Specific [place] Urine Protein Urine Glucose (UA) Urine Ketones Urine Occult Blood Urine Nitrate Urine Bilirubin Urine Urobilinogen Ur Leukocyte Esterase Urine RBC Urine WBC Urine Bacteria Ur Culture Indicated? Ketones 8.81 H SARS-CoV-2 (PCR) 12/18/21 14:05 WBC RBC Hgb Hct MCV MCH MCHC RDW Plt Count Neut % (Auto) Lymph % (Auto) [place] % (Auto) Eos % (Auto) Baso % (Auto) Neut # (Auto) Lymph # (Auto) [place] # (Auto) Eos # (Auto) Baso # (Auto) PT INR APTT ABG pH ABG pCO2 ABG pO2 ABG HCO3 ABG Total CO2 ABG O2 Saturation ABG Base Excess FiO2 Sodium 146 H Potassium 3.7 Chloride 111 H Carbon Dioxide 23 BUN 32 H Creatinine 0.71 Estimated GFR > 60 BUN/Creatinine Ratio 45.1 H Glucose 361 H D Lactate Calcium 9.1 Magnesium Total Bilirubin AST ALT Alkaline Phosphatase Total Creatine Kinase CK-MB (CK-2) CK-MB (CK-2) Rel Index Troponin I Total Protein Albumin Globulin Albumin/Globulin Ratio Lipase Urine Color Urine Appearance Urine pH Ur Specific [place] Urine Protein Urine Glucose (UA) Urine Ketones Urine Occult Blood Urine Nitrate Urine Bilirubin Urine Urobilinogen Ur Leukocyte Esterase Urine RBC Urine WBC Urine Bacteria Ur Culture Indicated? Ketones SARS-CoV-2 (PCR) Assessment & Plan Time Spent With Patient Critical Care time: I spent a total of [40] minutes of critical care time on this patient's care today; this time is exclusive of procedural time.
[2021-12-18] MEDS: LACTATED RINGERS 1,000 ML 100 ML IV (16:15)
[2021-12-18 16:25] LABS: Ammonia (NH3) < 9 umol/L (9-30)
[2021-12-18 16:27] LABS: BUN Creatinine Ratio 51.6 (6-22); Blood Urea Nitrogen 32 mg/dL (7-17); Calcium 9.2 mg/dL (8.4-10.2); Carbon Dioxide 24 mmol/L (22-32); Chloride 111 mmol/L (98-107); Estimated Glomerular Filt Rate > 60 mL/min (>60); Glucose 293 mg/dL (80-110); HEMOLYSIS < 15 (0-50); Sodium 146 mmol/L (137-145)
[2021-12-18 16:29] LABS: Hemoglobin A1C% w Est Avg Glu 11.1 % (4.0-6.0)
[2021-12-18 17:14] LABS: Vitamin B12 > 1000 pg/mL (239-931)
[2021-12-18 17:21] LABS: Troponin I 0.051 ng/mL (0.01-0.034)
[2021-12-18] MEDS: DEXTROSE 5%-0.45% NS 1,000 ML 110 ML IV (17:26)
--- NOTE | 2021-12-18 18:53 | PC.NURSE ---
Admit Note Pt arrived to room [id number] Transferred to bed via slider board. Awakens easily to voice but is drowsy. [place] speaking only, daughter in room to assist in translation. [employer] Relationship [employer] phone offered but pt falls asleep easily during phone use. Pt denies pain and is able to make needs known, following commands. CBGs q1h, insulin gtt titrating per DKA protocol, IV fluids per DKA protocol. LR at 100 ml/hr for hydration. Lam catheter in place and draining thomas urine. Oriented to room and to call light/bed/tv controls. Call light within reach. Bed alarm for safety.
[2021-12-18 19:29] LABS: BUN Creatinine Ratio 54.1 (6-22); Blood Urea Nitrogen 33 mg/dL (7-17); Calcium 9.2 mg/dL (8.4-10.2); Carbon Dioxide 26 mmol/L (22-32); Chloride 114 mmol/L (98-107); Estimated Glomerular Filt Rate > 60 mL/min (>60); Glucose 144 mg/dL (80-110); HEMOLYSIS < 15 (0-50); Potassium 4.1 mmol/L (3.4-5.1); Sodium 148 mmol/L (137-145)
[2021-12-18] MEDS: ATORVASTATIN 20 MG TABLET 10 MG PO (21:51)
[2021-12-18] MEDS: DOCUSATE 100 MG CAPSULE PO (21:52)
[2021-12-18] MEDS: DEXTROSE 10 % IN WATER 250 ML 73.5 ML IV (22:11)
--- NOTE | 2021-12-18 22:12 | PM.ICURNDS ---
- :: This patient was seen via real time interactive two-way audiovisual telecommunication. Note: This evening, patient is hemodynamically stable. She is alert to person/place but not time/circumstance; still appears encephalopathic. Evening BMP/electrolytes ordered and pending. Last AGAP closed this morning but has been continued on Insulin drip (currently @ 5u). Also on D5-1/2NS @ 110/hour and LR @ 100/hour. If repeat gap closed, stop Insulin drip and transition to long-acting. UOP this evening is fair. Will order for repeat CK in morning given initial c/f prolonged downtime and slightly low UOP. TSH is pending at this time - follow up given AMS and h/o hypothyroidism. Given that DKA has resolved, if persistent encephalopathy tomorrow - may need to broaden AMS workup.
[2021-12-19] VITALS (27 sets, daily range): BP systolic 110–145; BP diastolic 51–69; PULSE 69–107; RESP 15–29; TEMP 36.3–37; O2SAT 90–100
[2021-12-19 00:07] LABS: Troponin I 0.051 ng/mL (0.01-0.034)
[2021-12-19 00:24] LABS: BUN Creatinine Ratio 63.8 (6-22); Blood Urea Nitrogen 30 mg/dL (7-17); Calcium 8.5 mg/dL (8.4-10.2); Carbon Dioxide 25 mmol/L (22-32); Chloride 113 mmol/L (98-107); Estimated Glomerular Filt Rate > 60 mL/min (>60); Glucose 175 mg/dL (80-110); HEMOLYSIS < 15 (0-50); Magnesium 1.5 mg/dL (1.6-2.3); Phosphorous 2.6 mg/dL (2.8-4.1); Potassium 4.3 mmol/L (3.4-5.1); Sodium 143 mmol/L (137-145)
[2021-12-19] MEDS: LACTATED RINGERS 1,000 ML 100 ML IV (00:44)
[2021-12-19] MEDS: POTASSIUM PHOSPHATE 9 MMOL in SODIUM CHLORIDE 0.9% 250 ML 63.25 ML IV (02:10)
[2021-12-19] MEDS: MAGNESIUM SULFATE 2 GM/50 ML PIGGYBACK IV (02:16)
[2021-12-19] MEDS: INSULIN DRIP PREMIX 100 UNIT/100 ML PLAST..BAG 5.88 UNIT IV (02:22)
[2021-12-19] MEDS: DEXTROSE 5%-0.45% NS 1,000 ML 110 ML IV (04:35)
[2021-12-19 05:04] LABS: Add Manual Diff / Slide Review NO; Basophils Absolute Auto 100 /uL (0-100); Basophils Percent Auto 0.6 % (0-2); Eosinophils Absolute Auto 0 /uL (0-450); Hemoglobin 10.8 g/dL (12.0-16.0); Lymphocytes Absolute Auto 1500 /uL (1100-4500); Mean Corpuscular HGB Conc 32.8 % (30-36); Mean Corpuscular Hemoglobin 30.1 PG (26-34); Mean Corpuscular Volume 91.9 fL (80-100); Monocytes Absolute Auto 1100 /uL (0-900); Monocytes Percent Auto 6.5 % (3-14); Neutrophils Absolute Auto 13900 /uL (1500-7000); Neutrophils Percent Auto 83.9 % (50-75); Platelet Count 253 X10^3/uL (150-400); Red Blood Cell Count 3.59 X10^6/uL (4.0-5.2); White Blood Cell Count 16.5 X10^3/uL (4.5-11.0)
[2021-12-19 05:12] LABS: Alanine Aminotransferase 34 IU/L (<35); Albumin 3.2 g/dL (3.5-5.0); Albumin Globulin Ratio 1.2 (1.0-2.8); Alkaline Phosphatase 63 U/L (38-126); Aspartate Aminotransferase 63 IU/L (14-36); BUN Creatinine Ratio 54.5 (6-22); Bilirubin Total 0.3 mg/dL (0.2-1.3); Blood Urea Nitrogen 24 mg/dL (7-17); Calcium 8.5 mg/dL (8.4-10.2); Carbon Dioxide 27 mmol/L (22-32); Chloride 114 mmol/L (98-107); Estimated Glomerular Filt Rate > 60 mL/min (>60); Globulin 2.7 g/dL (1.7-4.1); Glucose 150 mg/dL (80-110); HEMOLYSIS < 15 (0-50); Potassium 4.1 mmol/L (3.4-5.1); Sodium 145 mmol/L (137-145); Total Protein 5.9 g/dL (6.3-8.2)
[2021-12-19 05:19] LABS: NT-proBNP (BNP-Adult 18+) 847 pg/mL (<450)
[2021-12-19] MEDS: LEVOTHYROXINE 75 MCG TABLET PO (05:48)
[2021-12-19 06:05] LABS: Thyroid Stimulating Hormone 1.41 uIU/mL (0.47-4.68)
[2021-12-19] MEDS: INSULIN NPH 100 UNIT/ML VIAL 8 UNIT SUBCUT ×2 (08:30→16:49)
[2021-12-19] MEDS: DOCUSATE 100 MG CAPSULE PO ×2 (08:45→21:15)
[2021-12-19] MEDS: lisinopriL 10 MG TABLET PO (08:45)
[2021-12-19] MEDS: ENOXAPARIN 40 MG/0.4 ML SYRINGE SUBCUT (08:45)
[2021-12-19] MEDS: LIDOCAINE PATCH 1 EACH ADH..PATCH TOP (08:45)
--- NOTE | 2021-12-19 09:44 | PM.PN.EICU ---
Subjective Subjective :: This patient was seen via real time interactive two-way audiovisual telecommunication. AG closed. being trasnitioned to basal bolus Current Medications Current Medications Medications: Home Medications metformin 1,000 mg tablet (Glucophage) 1,000 mg PO BIDCC #180 tab 06/10/17 [Rx Confirmed 12/18/21] simvastatin 20 mg tablet 20 mg PO HS #90 tab 06/10/17 [Rx Confirmed 12/18/21] blood sugar diagnostic ([employer] Verio test strips) 12/18/21 [History Confirmed 12/18/21] diclofenac sodium 1 % topical gel 2 g TOPICAL QID PRN 12/18/21 [History Confirmed 12/18/21] glipizide 5 mg tablet 5 mg PO BID 12/18/21 [History Confirmed 12/18/21] levothyroxine 75 mcg tablet 75 mcg PO QAM 12/18/21 [History Confirmed 12/18/21] lidocaine 5 % topical patch 1 patch TOPICAL DAILY 12/18/21 [History Confirmed 12/18/21] lisinopril 10 mg tablet 10 mg PO DAILY 12/18/21 [History Confirmed 12/18/21] Visit Medications (administered) Generic Name Dose Route Start Last Admin Trade Name Freq PRN Reason Stop Dose Admin Atorvastatin Calcium 10 mg 12/18/21 21:00 12/18/21 21:51 Atorvastatin 20 Mg Tablet PO 10 mg BEDTIME TRIPP Administration Docusate Sodium 100 mg 12/18/21 21:00 12/19/21 08:45 Docusate 100 Mg Capsule PO 100 mg BID TRIPP Administration Enoxaparin Sodium 40 mg 12/19/21 09:00 12/19/21 08:45 Enoxaparin 40 Mg/0.4 Ml Syringe SUBCUT 40 mg DAILY TRIPP Administration INSULIN DRIP PREMIX 100 unit in 100 mls @ 6 mls/hr 12/18/21 11:45 12/19/21 05:16 Myxredlin Drip Premix IV 3.68 mls/hr TITRATE TRIPP Titration Protocol Insulin Human Lispro 2 unit 12/19/21 07:45 12/19/21 08:42 Insulin Lispro 100 Unit/Ml 3ml Vial SUBCUT Not Given AC TRIPP Insulin Human NPH 8 unit 12/19/21 07:00 12/19/21 08:30 Insulin Nph 100 Unit/Ml Vial SUBCUT 8 unit BIDAC TRIPP Administration Levothyroxine Sodium 75 mcg 12/19/21 06:00 12/19/21 05:48 Levothyroxine 75 Mcg Tablet PO 75 mcg DAILY@0600 TRIPP Administration Lidocaine 1 each 12/19/21 09:00 12/19/21 08:45 Lidocaine Patch 1 Each Adh..Patch TOP 1 each DAILY TRIPP Administration Lidocaine 1 each 12/18/21 21:00 12/18/21 22:12 Remove Lidocaine Patch TOP Not Given BEDTIME TRIPP Lisinopril 10 mg 12/19/21 09:00 12/19/21 08:45 Lisinopril 10 Mg Tablet PO 10 mg DAILY TRIPP Administration Objective Labs Result Diagrams: 12/19/21 04:44 12/19/21 04:44 Labs: Laboratory Results - last 24 hr 12/18/21 12/18/21 12/18/21 10:00 10:00 10:00 WBC 19.1 H RBC 4.22 Hgb 12.8 Hct 39.8 MCV 94.3 MCH 30.3 MCHC 32.1 RDW 14.0 Plt Count 369 Neut % (Auto) 91.0 H Lymph % (Auto) 4.3 L [place] % (Auto) 4.5 Eos % (Auto) 0.0 L Baso % (Auto) 0.2 Neut # (Auto) 98282 H Lymph # (Auto) 800 L [place] # (Auto) 900 Eos # (Auto) 0 Baso # (Auto) 0 PT 11.5 INR 1.0 APTT 31 ABG pH ABG pCO2 ABG pO2 ABG HCO3 ABG Total CO2 ABG O2 Saturation ABG Base Excess FiO2 Sodium 145 Potassium 4.5 Chloride 100 Carbon Dioxide 19 L BUN 35 H Creatinine 0.90 Estimated GFR > 60 BUN/Creatinine Ratio 38.9 H Glucose 616 H* Hemoglobin A1c Lactate Calcium 10.5 H Phosphorus Magnesium 1.8 Total Bilirubin 0.5 AST 56 H ALT 39 H Alkaline Phosphatase 91 Ammonia Total Creatine Kinase 688 H CK-MB (CK-2) 8.57 H CK-MB (CK-2) Rel Index 1.2 L Troponin I 0.051 H NT-Pro-B Natriuret Pep Total Protein 7.9 Albumin 4.8 Globulin 3.1 Albumin/Globulin Ratio 1.5 Lipase 54 Vitamin B12 TSH Urine Color Urine Appearance Urine pH Ur Specific [place] Urine Protein Urine Glucose (UA) Urine Ketones Urine Occult Blood Urine Nitrate Urine Bilirubin Urine Urobilinogen Ur Leukocyte Esterase Urine RBC Urine WBC Urine Bacteria Ur Culture Indicated? Nasal Screen MRSA (PCR) Ketones SARS-CoV-2 (PCR) 12/18/21 12/18/21 12/18/21 10:00 10:00 10:08 WBC RBC Hgb Hct MCV MCH MCHC RDW Plt Count Neut % (Auto) Lymph % (Auto) [place] % (Auto) Eos % (Auto) Baso % (Auto) Neut # (Auto) Lymph # (Auto) [place] # (Auto) Eos # (Auto) Baso # (Auto) PT INR APTT ABG pH ABG pCO2 ABG pO2 ABG HCO3 ABG Total CO2 ABG O2 Saturation ABG Base Excess FiO2 Sodium Potassium Chloride Carbon Dioxide BUN Creatinine Estimated GFR BUN/Creatinine Ratio Glucose Hemoglobin A1c 11.1 H Lactate 2.2 H Calcium Phosphorus Magnesium Total Bilirubin AST ALT Alkaline Phosphatase Ammonia Total Creatine Kinase CK-MB (CK-2) CK-MB (CK-2) Rel Index Troponin I NT-Pro-B Natriuret Pep Total Protein Albumin Globulin Albumin/Globulin Ratio Lipase Vitamin B12 > 1000 H TSH Urine Color Urine Appearance Urine pH Ur Specific [place] Urine Protein Urine Glucose (UA) Urine Ketones Urine Occult Blood Urine Nitrate Urine Bilirubin Urine Urobilinogen Ur Leukocyte Esterase Urine RBC Urine WBC Urine Bacteria Ur Culture Indicated? Nasal Screen MRSA (PCR) Ketones SARS-CoV-2 (PCR) 12/18/21 12/18/21 12/18/21 10:26 10:26 10:51 WBC RBC Hgb Hct MCV MCH MCHC RDW Plt Count Neut % (Auto) Lymph % (Auto) [place] % (Auto) Eos % (Auto) Baso % (Auto) Neut # (Auto) Lymph # (Auto) [place] # (Auto) Eos # (Auto) Baso # (Auto) PT INR APTT ABG pH 7.28 L* ABG pCO2 42.0 ABG pO2 76 L ABG HCO3 20 L ABG Total CO2 21 ABG O2 Saturation 93 L ABG Base Excess -7.0 L FiO2 21 Sodium Potassium Chloride Carbon Dioxide BUN Creatinine Estimated GFR BUN/Creatinine Ratio Glucose Hemoglobin A1c Lactate Calcium Phosphorus Magnesium Total Bilirubin AST ALT Alkaline Phosphatase Ammonia Total Creatine Kinase CK-MB (CK-2) CK-MB (CK-2) Rel Index Troponin I NT-Pro-B Natriuret Pep Total Protein Albumin Globulin Albumin/Globulin Ratio Lipase Vitamin B12 TSH Urine Color Yellow Urine Appearance Clear Urine pH 5.0 Ur Specific [place] 1.015 Urine Protein Trace H Urine Glucose (UA) 2+ H Urine Ketones 2+ H Urine Occult Blood 3+ H Urine Nitrate Negative Urine Bilirubin Negative Urine Urobilinogen 0.2 Ur Leukocyte Esterase Negative Urine RBC 10-30/hpf H Urine WBC None seen Urine Bacteria None seen Ur Culture Indicated? Cult not indicated Nasal Screen MRSA (PCR) Ketones SARS-CoV-2 (PCR) Negative 12/18/21 12/18/21 12/18/21 11:34 12:52 14:05 WBC RBC Hgb Hct MCV MCH MCHC RDW Plt Count Neut % (Auto) Lymph % (Auto) [place] % (Auto) Eos % (Auto) Baso % (Auto) Neut # (Auto) Lymph # (Auto) [place] # (Auto) Eos # (Auto) Baso # (Auto) PT INR APTT ABG pH ABG pCO2 ABG pO2 ABG HCO3 ABG Total CO2 ABG O2 Saturation ABG Base Excess FiO2 Sodium 146 H Potassium 3.7 Chloride 111 H Carbon Dioxide 23 BUN 32 H Creatinine 0.71 Estimated GFR > 60 BUN/Creatinine Ratio 45.1 H Glucose 361 H D Hemoglobin A1c Lactate 1.0 Calcium 9.1 Phosphorus Magnesium Total Bilirubin AST ALT Alkaline Phosphatase Ammonia Total Creatine Kinase CK-MB (CK-2) CK-MB (CK-2) Rel Index Troponin I NT-Pro-B Natriuret Pep Total Protein Albumin Globulin Albumin/Globulin Ratio Lipase Vitamin B12 TSH Urine Color Urine Appearance Urine pH Ur Specific [place] Urine Protein Urine Glucose (UA) Urine Ketones Urine Occult Blood Urine Nitrate Urine Bilirubin Urine Urobilinogen Ur Leukocyte Esterase Urine RBC Urine WBC Urine Bacteria Ur Culture Indicated? Nasal Screen MRSA (PCR) Ketones 8.81 H SARS-CoV-2 (PCR) 12/18/21 12/18/21 12/18/21 14:51 15:52 15:52 WBC RBC Hgb Hct MCV MCH MCHC RDW Plt Count Neut % (Auto) Lymph % (Auto) [place] % (Auto) Eos % (Auto) Baso % (Auto) Neut # (Auto) Lymph # (Auto) [place] # (Auto) Eos # (Auto) Baso # (Auto) PT INR APTT ABG pH ABG pCO2 ABG pO2 ABG HCO3 ABG Total CO2 ABG O2 Saturation ABG Base Excess FiO2 Sodium 146 H Potassium 4.0 Chloride 111 H Carbon Dioxide 24 BUN 32 H Creatinine 0.62 Estimated GFR > 60 BUN/Creatinine Ratio 51.6 H Glucose 293 H Hemoglobin A1c Lactate Calcium 9.2 Phosphorus Magnesium Total Bilirubin AST ALT Alkaline Phosphatase Ammonia Total Creatine Kinase CK-MB (CK-2) CK-MB (CK-2) Rel Index Troponin I 0.051 H NT-Pro-B Natriuret Pep Total Protein Albumin Globulin Albumin/Globulin Ratio Lipase Vitamin B12 TSH Urine Color Urine Appearance Urine pH Ur Specific [place] Urine Protein Urine Glucose (UA) Urine Ketones Urine Occult Blood Urine Nitrate Urine Bilirubin Urine Urobilinogen Ur Leukocyte Esterase Urine RBC Urine WBC Urine Bacteria Ur Culture Indicated? Nasal Screen MRSA (PCR) Negative for mrsa Ketones SARS-CoV-2 (PCR) 12/18/21 12/18/21 12/18/21 15:52 18:15 23:34 WBC RBC Hgb Hct MCV MCH MCHC RDW Plt Count Neut % (Auto) Lymph % (Auto) [place] % (Auto) Eos % (Auto) Baso % (Auto) Neut # (Auto) Lymph # (Auto) [place] # (Auto) Eos # (Auto) Baso # (Auto) PT INR APTT ABG pH ABG pCO2 ABG pO2 ABG HCO3 ABG Total CO2 ABG O2 Saturation ABG Base Excess FiO2 Sodium 148 H Potassium 4.1 Chloride 114 H Carbon Dioxide 26 BUN 33 H Creatinine 0.61 Estimated GFR > 60 BUN/Creatinine Ratio 54.1 H Glucose 144 H D Hemoglobin A1c Lactate Calcium 9.2 Phosphorus Magnesium Total Bilirubin AST ALT Alkaline Phosphatase Ammonia < 9 L Total Creatine Kinase CK-MB (CK-2) CK-MB (CK-2) Rel Index Troponin I 0.051 H NT-Pro-B Natriuret Pep Total Protein Albumin Globulin Albumin/Globulin Ratio Lipase Vitamin B12 TSH Urine Color Urine Appearance Urine pH Ur Specific [place] Urine Protein Urine Glucose (UA) Urine Ketones Urine Occult Blood Urine Nitrate Urine Bilirubin Urine Urobilinogen Ur Leukocyte Esterase Urine RBC Urine WBC Urine Bacteria Ur Culture Indicated? Nasal Screen MRSA (PCR) Ketones SARS-CoV-2 (PCR) 12/18/21 12/19/21 12/19/21 23:34 04:44 04:44 WBC 16.5 H RBC 3.59 L Hgb 10.8 L Hct 33.0 L MCV 91.9 MCH 30.1 MCHC 32.8 RDW 14.0 Plt Count 253 Neut % (Auto) 83.9 H Lymph % (Auto) 9.0 L [place] % (Auto) 6.5 Eos % (Auto) 0.0 L Baso % (Auto) 0.6 Neut # (Auto) 85776 H Lymph # (Auto) 1500 [place] # (Auto) 1100 H Eos # (Auto) 0 Baso # (Auto) 100 PT INR APTT ABG pH ABG pCO2 ABG pO2 ABG HCO3 ABG Total CO2 ABG O2 Saturation ABG Base Excess FiO2 Sodium 143 145 Potassium 4.3 4.1 Chloride 113 H 114 H Carbon Dioxide 25 27 BUN 30 H 24 H Creatinine 0.47 L 0.44 L Estimated GFR > 60 > 60 BUN/Creatinine Ratio 63.8 H 54.5 H Glucose 175 H 150 H Hemoglobin A1c Lactate Calcium 8.5 8.5 Phosphorus 2.6 L Magnesium 1.5 L Total Bilirubin 0.3 AST 63 H ALT 34 Alkaline Phosphatase 63 Ammonia Total Creatine Kinase CK-MB (CK-2) CK-MB (CK-2) Rel Index Troponin I NT-Pro-B Natriuret Pep 847 H Total Protein 5.9 L Albumin 3.2 L Globulin 2.7 Albumin/Globulin Ratio 1.2 Lipase Vitamin B12 TSH Urine Color Urine Appearance Urine pH Ur Specific [place] Urine Protein Urine Glucose (UA) Urine Ketones Urine Occult Blood Urine Nitrate Urine Bilirubin Urine Urobilinogen Ur Leukocyte Esterase Urine RBC Urine WBC Urine Bacteria Ur Culture Indicated? Nasal Screen MRSA (PCR) Ketones SARS-CoV-2 (PCR) 12/19/21 04:44 WBC RBC Hgb Hct MCV MCH MCHC RDW Plt Count Neut % (Auto) Lymph % (Auto) [place] % (Auto) Eos % (Auto) Baso % (Auto) Neut # (Auto) Lymph # (Auto) [place] # (Auto) Eos # (Auto) Baso # (Auto) PT INR APTT ABG pH ABG pCO2 ABG pO2 ABG HCO3 ABG Total CO2 ABG O2 Saturation ABG Base Excess FiO2 Sodium Potassium Chloride Carbon Dioxide BUN Creatinine Estimated GFR BUN/Creatinine Ratio Glucose Hemoglobin A1c Lactate Calcium Phosphorus Magnesium Total Bilirubin AST ALT Alkaline Phosphatase Ammonia Total Creatine Kinase CK-MB (CK-2) CK-MB (CK-2) Rel Index Troponin I NT-Pro-B Natriuret Pep Total Protein Albumin Globulin Albumin/Globulin Ratio Lipase Vitamin B12 TSH 1.41 Urine Color Urine Appearance Urine pH Ur Specific [place] Urine Protein Urine Glucose (UA) Urine Ketones Urine Occult Blood Urine Nitrate Urine Bilirubin Urine Urobilinogen Ur Leukocyte Esterase Urine RBC Urine WBC Urine Bacteria Ur Culture Indicated? Nasal Screen MRSA (PCR) Ketones SARS-CoV-2 (PCR) Exam Vital Signs (past 8 hours): - 12/19/21 02:00 12/19/21 03:00 12/19/21 04:00 Temperature 97.8 F 97.9 F Pulse Rate 95 H 90 98 H Respiratory Rate 17 16 26 H Blood Pressure 124/59 L 124/60 128/64 Pulse Oximetry 98 99 94 12/19/21 05:00 12/19/21 06:00 12/19/21 07:00 Temperature 98.1 F 98.6 F 97.7 F Pulse Rate 97 H 88 96 H Respiratory Rate 21 21 17 Blood Pressure 136/61 136/61 145/69 H Pulse Oximetry 96 96 100 12/19/21 07:04 12/19/21 07:30 12/19/21 07:47 Temperature 97.3 F L Pulse Rate 98 H 90 Respiratory Rate 16 15 Blood Pressure 131/61 Pulse Oximetry 99 100 Oxygen Delivery Method Nasal Cannula Oxygen Flow Rate 1 Narrative Exam Narrative: surrogate for exam is primary team Quality TeleICU VTE Deep Vein Thrombosis/Pulmonary Embolism Present on Admission: No Assessment & Plan Assessment & Plan narrative: Assessment: Acute encephalopathy likely metabolic 2/2 sever hyperglycemia Mild DKA HAG[place] Lactic acidosis 2/2 metformin Leukocytosis likely reactive Mild trop elevation 2/2 demand ischemia Mildly elevated LFT ? Rec: Mental status improved trnasition to basal bolus, would increase lantus dose trend cbc and cmp f/u tte fs q6 hrs advance diet dvt ppx Time Spent With Patient Critical Care time: I spent a total of [] minutes of critical care time on this patient's care today; this time is exclusive of procedural time.
--- NOTE | 2021-12-19 11:21 | P.PN_ITS ---
Subjective Subjective Date Patient Seen: 12/19/21 Interval history: 86-year-old female who lives home alone who was found down and brought to the hospital with diabetic ketoacidosis. The patient has had significant improvement of her blood sugars on the insulin drip. She has been transferred off the drip and now on subcutaneous insulin. She reports nausea after eating, but no shortness of breath or chest pain. Exam Vital Signs (past 8 hours): - 12/19/21 04:00 12/19/21 05:00 12/19/21 06:00 Temperature 98.1 F 98.6 F Pulse Rate 98 H 97 H 88 Respiratory Rate 26 H 21 21 Blood Pressure 128/64 136/61 136/61 Pulse Oximetry 94 96 96 12/19/21 07:00 12/19/21 07:04 12/19/21 07:30 Temperature 97.7 F Pulse Rate 96 H 98 H 90 Respiratory Rate 17 16 15 Blood Pressure 145/69 H 131/61 Pulse Oximetry 100 99 100 12/19/21 07:47 12/19/21 08:00 12/19/21 08:30 Temperature 97.3 F L Pulse Rate 99 H 94 H Respiratory Rate 18 16 Blood Pressure 138/69 Pulse Oximetry 97 98 12/19/21 09:00 12/19/21 09:30 12/19/21 10:00 Temperature Pulse Rate 98 H 99 H 97 H Respiratory Rate 19 25 H 19 Blood Pressure 135/69 143/65 H Pulse Oximetry 92 94 94 12/19/21 10:30 12/19/21 11:00 Temperature Pulse Rate 93 H 90 Respiratory Rate 20 18 Blood Pressure 130/61 Pulse Oximetry 91 94 Oxygen Delivery Method Nasal Cannula Oxygen Flow Rate 0 Narrative Exam Narrative: Elderly female lying in bed Resp Other: Lungs: Clear to auscultation Cardio Other: Cardiac exam: Regular rate and rhythm normal S1-S2 GI Other: Abdomen: Soft and nontender Other: Lam catheter in Extrem Other: No edema Objective Labs Result Diagrams: 12/19/21 04:44 12/19/21 04:44 Labs: Laboratory Results - last 24 hr 12/18/21 12/18/21 12/18/21 10:00 10:00 11:34 WBC RBC Hgb Hct MCV MCH MCHC RDW Plt Count Neut % (Auto) Lymph % (Auto) [place] % (Auto) Eos % (Auto) Baso % (Auto) Neut # (Auto) Lymph # (Auto) [place] # (Auto) Eos # (Auto) Baso # (Auto) Sodium Potassium Chloride Carbon Dioxide BUN Creatinine Estimated GFR BUN/Creatinine Ratio Glucose Hemoglobin A1c 11.1 H Lactate Calcium Phosphorus Magnesium Total Bilirubin AST ALT Alkaline Phosphatase Ammonia Troponin I NT-Pro-B Natriuret Pep Total Protein Albumin Globulin Albumin/Globulin Ratio Vitamin B12 > 1000 H TSH Nasal Screen MRSA (PCR) Ketones 8.81 H 12/18/21 12/18/21 12/18/21 12:52 14:05 14:51 WBC RBC Hgb Hct MCV MCH MCHC RDW Plt Count Neut % (Auto) Lymph % (Auto) [place] % (Auto) Eos % (Auto) Baso % (Auto) Neut # (Auto) Lymph # (Auto) [place] # (Auto) Eos # (Auto) Baso # (Auto) Sodium 146 H Potassium 3.7 Chloride 111 H Carbon Dioxide 23 BUN 32 H Creatinine 0.71 Estimated GFR > 60 BUN/Creatinine Ratio 45.1 H Glucose 361 H D Hemoglobin A1c Lactate 1.0 Calcium 9.1 Phosphorus Magnesium Total Bilirubin AST ALT Alkaline Phosphatase Ammonia Troponin I NT-Pro-B Natriuret Pep Total Protein Albumin Globulin Albumin/Globulin Ratio Vitamin B12 TSH Nasal Screen MRSA (PCR) Negative for mrsa Ketones 12/18/21 12/18/21 12/18/21 15:52 15:52 15:52 WBC RBC Hgb Hct MCV MCH MCHC RDW Plt Count Neut % (Auto) Lymph % (Auto) [place] % (Auto) Eos % (Auto) Baso % (Auto) Neut # (Auto) Lymph # (Auto) [place] # (Auto) Eos # (Auto) Baso # (Auto) Sodium 146 H Potassium 4.0 Chloride 111 H Carbon Dioxide 24 BUN 32 H Creatinine 0.62 Estimated GFR > 60 BUN/Creatinine Ratio 51.6 H Glucose 293 H Hemoglobin A1c Lactate Calcium 9.2 Phosphorus Magnesium Total Bilirubin AST ALT Alkaline Phosphatase Ammonia < 9 L Troponin I 0.051 H NT-Pro-B Natriuret Pep Total Protein Albumin Globulin Albumin/Globulin Ratio Vitamin B12 TSH Nasal Screen MRSA (PCR) Ketones 12/18/21 12/18/21 12/18/21 18:15 23:34 23:34 WBC RBC Hgb Hct MCV MCH MCHC RDW Plt Count Neut % (Auto) Lymph % (Auto) [place] % (Auto) Eos % (Auto) Baso % (Auto) Neut # (Auto) Lymph # (Auto) [place] # (Auto) Eos # (Auto) Baso # (Auto) Sodium 148 H 143 Potassium 4.1 4.3 Chloride 114 H 113 H Carbon Dioxide 26 25 BUN 33 H 30 H Creatinine 0.61 0.47 L Estimated GFR > 60 > 60 BUN/Creatinine Ratio 54.1 H 63.8 H Glucose 144 H D 175 H Hemoglobin A1c Lactate Calcium 9.2 8.5 Phosphorus 2.6 L Magnesium 1.5 L Total Bilirubin AST ALT Alkaline Phosphatase Ammonia Troponin I 0.051 H NT-Pro-B Natriuret Pep Total Protein Albumin Globulin Albumin/Globulin Ratio Vitamin B12 TSH Nasal Screen MRSA (PCR) Ketones 12/19/21 12/19/21 12/19/21 04:44 04:44 04:44 WBC 16.5 H RBC 3.59 L Hgb 10.8 L Hct 33.0 L MCV 91.9 MCH 30.1 MCHC 32.8 RDW 14.0 Plt Count 253 Neut % (Auto) 83.9 H Lymph % (Auto) 9.0 L [place] % (Auto) 6.5 Eos % (Auto) 0.0 L Baso % (Auto) 0.6 Neut # (Auto) 86673 H Lymph # (Auto) 1500 [place] # (Auto) 1100 H Eos # (Auto) 0 Baso # (Auto) 100 Sodium 145 Potassium 4.1 Chloride 114 H Carbon Dioxide 27 BUN 24 H Creatinine 0.44 L Estimated GFR > 60 BUN/Creatinine Ratio 54.5 H Glucose 150 H Hemoglobin A1c Lactate Calcium 8.5 Phosphorus Magnesium Total Bilirubin 0.3 AST 63 H ALT 34 Alkaline Phosphatase 63 Ammonia Troponin I NT-Pro-B Natriuret Pep 847 H Total Protein 5.9 L Albumin 3.2 L Globulin 2.7 Albumin/Globulin Ratio 1.2 Vitamin B12 TSH 1.41 Nasal Screen MRSA (PCR) Ketones [facility] Medical History (Updated 12/18/21 @ 15:45 by Jimena Ramey MD) Hyperlipidemia Hypertension Hypothyroidism Type 2 diabetes mellitus Surgical History (Updated 12/18/21 @ 15:47 by Jimena Ramey MD) History of bilateral knee replacement History of cataract removal with insertion of prosthetic lens Status post cholecystectomy Family History Brother High cholesterol Stroke Social History household members: caregiver Smoking Status: Never smoker Assessment & Plan Assessment & Plan narrative: 86-year-old female with a history of type 2 diabetes, hypertension, hyperlipidemia, hypothyroidism who was found down now admitted to the hospital with diabetic ketoacidosis * Per the daughter patient slipped and fell and was unable to get up * Head CT negative for intracranial abnormality cervical spine film showed no acute osseous lesion * Chest x-ray were negative * Pelvic x-ray reveals no fracture * Blood sugar 616 on admission, initial bicarb low at 19, white count elevated at 19, serum sodium 146, hemoglobin 11.1 * Patient current on an insulin drip with improvement of blood sugars, will continue to monitor electrolytes closely * She has transitioned off the insulin drip now on NPH insulin * There is no obvious source of infection, UA shows 10-30 wbc's but no RBCs * Will hold glyburide, and metformin at this time, * Agree with initiation of insulin, patient will be going to SNF at discharge who can manage this for her Hypertension * Continue lisinopril Hyperlipidemia * Continue statin Hypothyroidism * Continue L-thyroxine Elevated troponin * Suspect demand ischemia, 12 lead EKG does not reveal acute ST T wave abnormalities * Will continue to monitor closely Gait instability * Will obtain PT OT consultation * Will continue Lovenox for DVT prophylaxis Will start diet, advanced as tolerated, Disposition, per daughter, they would like [facility] at discharge to [facility] for 25/03 in home care when she leaves Time Spent With Patient Critical Care time: I spent a total of [] minutes of critical care time on this patient's care today; this time is exclusive of procedural time. Quality VTE Deep Vein Thrombosis/Pulmonary Embolism Present on Admission: No
[2021-12-19] MEDS: INSULIN LISPRO 100 UNIT/ML 3ML VIAL SUBCUT ×3 (11:42→21:14)
[2021-12-19] MEDS: ONDANSETRON 4 MG/2 ML INJ IV (12:45)
--- NOTE | 2021-12-19 12:55 | CM.DANOTE ---
DCP: Case received, EMR reviewed and checked on patient. Daughter, Lilibeth, was at bedside. Introduced self and role. Was able to obtain information from daughter regarding patient's baseline activity level and current needs at home. DCP assessment was completed with information currently available. Patient is an 86 year old female who admitted yesterday morning to the care of the hospitalist team. PCP: Dr. Valenzuela. Payer: confirmed: [facility]. Patient came to the hospital via ambulance secondary to a ground level fall that occurred at home. According to notes, patient had a fall at home, was on the ground for some time. She has HECTOR caregivers in the home, daily, but not on the week-end. Her son was staying with her, but went home to get some additional items, and patient ended up on the floor. She does have a life line, but did not use. Patient was diagnosed with Diabetic Ketoacidosis Met with daughter, Lilibeth, at beside, for patient was sleeping. Patient speaks Zimbabwean as primary language. Confirmed that patient does have HECTOR caregivers, according to daughter, about 4 hours a day. They help with meals, laundry, take her to appointments. Patient has FWW at home. Her son normally stays with her on week-ends, but son left to grab some items in [employer], according to daughter, patient wanted him to go. She then fell and was on the floor for a while. Daughter is hoping that patient can go to rehab for some strengthening for a while, since she works time broker. She is hopeful that patient can go to [facility], since it is across the street. Patient has not yet worked with P.TOtilio Brought in Medicare Choice List. Let her know that this sample case porter can give referral to [facility] at [facility]. Spoke to Jessica. Patient has vendome [id number], and will need to get an auth. She will need therapy notes as well before she can submit auth. P: DCP to work on care home. Awaiting to see is [facility] can accept. Caroline Caceres RN/Manager Shop Discharge Planning/Care Management CM Discharge Assessment Start: 12/19/21 12:52 Freq: Status: Active Protocol: Document 12/19/21 12:53 (Rec: 12/19/21 12:55 [id number]) Discharge Planning Assessment Assigned [employer] Caroline Morris, RN/Manager Shop Advance Directives? No History Provided By Patient,Family Member,Medical Record Prior Living Arrangements House Household Members caregiver Type of transporation used prior to Relies on Others admit Independent with ADL's No Is patient alert and oriented? Yes Needs Assistance With Meal Prep,Toileting,Home Chores / Shopping Caregiver for Another No DME Already Rented / Owned FWW / Walker,Other Comment Patient also has Life Line. Patient/Family Preference Nursing Home Facility Comment Family is hoping for [facility]. Comment As long as [facility] can accept. Discharge Plan Nursing Home Facility Referrals Initiated Nursing Home Additional Comment [facility] will review. Medicare Choice List Provided Yes Has Agency SNF been contacted Yes Comment [facility] is reviewing. Whiteboard Updated in Patient Room with Yes name and ext. # of [employer] Review Status In Process Next Review Type Continued Stay Review
--- NOTE | 2021-12-19 14:45 | PT.IIE ---
Current Diagnoses Type 2 diabetes mellitus with ketoacidosis without coma (12/18/21) Surgical History (Last Updated 12/18/21 @ 15:47 by Jimena Ramey MD) History of cataract removal with insertion of prosthetic lens Status post cholecystectomy Medical History (Last Updated 12/18/21 @ 15:45 by Jimena Ramey MD) Hyperlipidemia Hypertension Hypothyroidism Type 2 diabetes mellitus Physical Therapy Inpatient Evaluation/Re-Eval M1 PT/OT-IP Prior Functional Status Start: 12/19/21 08:22 Freq: NEEDED Status: Active Protocol: Document 12/19/21 14:45 AW (Rec: 12/19/21 15:51 AW [id number]) Medical Review Prior Functional Status Medical History Reviewed Yes Communication Pt is kazakh speaking and her duaghter present to translate . Mobility and Gait Pt able to use 4ww all the time and per daughter states in the past was walking in the hallways and parking lot. Activities of Daily Living and IADL's Pt has caregivers that assist for IADL needs, has pill organizer, and assist for bills. Pt also needing assist for completeness for toileting and on occasion to get dressed. Pt also gets assist for showers. Pt has a caregiver that assist for 3x/ week for approximately 4 hours at a time. Otherwise her son come to stay from Saturday night to Saturday mornings and other family come to check on her after work. Pt's daughter stays she is on her own approximately for two days. Social History Household Members caregiver Living Arrangements House Number of Floors (Floors) One Floor Number of Stairs To Enter/Railing? NO steps to enter the apartment. Home Environment High Toilet,Walk in Shower Home Equipment Four Wheel Walker,Straight Cane,Shower Seat with Backrest ,Hand Held Shower,Grab Bars In Shower M2 PT-IP Current Condition Start: 12/19/21 08:22 Freq: NEEDED Status: Active Protocol: Document 12/19/21 14:45 AW (Rec: 12/19/21 15:51 AW [id number]) Physical Therapy Current Condition Current Condition Evaluation Date 12/19/21 Treatment Diagnosis DKA; acute encephalopathy; impaired mobility and gait Onset Date 12/17/21 M3 PT-IP Subjective Start: 12/19/21 08:22 Freq: NEEDED Status: Active Protocol: Document 12/19/21 14:45 AW (Rec: 12/19/21 15:51 AW [id number]) Subjective Physical Therapy Visit Type Type Initial Evaluation Visit Start Time 14:20 Visit Stop Time 14:45 Total Visit Minutes 25 Notes Co-eval with OT due to pt's poor functional reserve. Physical Therapy Visit Comments Patient Comments Pt's daughter was present to provide translation. Pt consented to PT Patient Goals Pt's daughter feels pt is no longer safe to live alone and family are working on alternate arrangements. M4 PT-IP Mobility and Gait Start: 12/19/21 08:22 Freq: NEEDED Status: Active Protocol: Document 12/19/21 14:45 AW (Rec: 12/19/21 15:51 AW [id number]) PT-Bed Mobility Assessment Sit to Supine Sit to Supine Maximum Assistance,2 Person Assistance Scooting Scooting Up and Down in Bed Dependent PT-Transfer Assessment Sit to and From Stand Sit to and from Stand Moderate Assistance,1 Person Assistance,Use of Upper Extremities Equipment Transfer Assistive Device Gait Belt,Front Wheeled Walker Orthotic/Prosthetic Devices or Brace: No Transfers Transfer Destination Bed Transfer Technique Stand Step Pivot Transfer Ability Level of Assist Moderate Assistance,2 Person Assistance,Use of Upper Extremities Comments Mobility Comments Pt was sitting up in the chair after having used BSC with nursing. BP was 122/68 HR 90 SpO2 98% on 2 L/min. She needed assist to elevate her left arm to the walker. Pt stood mod A and used FWW to transfer to the bed. She side stepped away from the walker toward the bed instead of keeping hands on the walker and needed cues to keep the walker with her until ready to sit. Mod A x 2 needed to transfer safely. Pt sat EOB and was able to scoot herself back on the bed. She is short and her feet dangled. Pt was instructed to lie down and she flopped backward across the bed with poor control. Max A x 2 to position the pt in supine. VS were stable. Pt was left with bed alarm on, call light in hand. She expressed understanding (via her daughter) to call for all mobility needs. Gait Assessment Gait Gait Assistance Required: Moderate Assistance,2 Person Assist Distance (Feet) 3 Assistive Devices Assistive Device Gait Belt,Front Wheeled Walker Orthotic/Prosthetic Devices or Brace: No Gait Deviations General Gait Pattern Decreased Stride Length, Decreased Feet Clearance, Flexed Trunk Factors Limiting Gait Function Factors Limiting Gait Function Decreased Strength,Difficulty Following Directions,Poor Balance,Poor Safety Awareness Comments Gait Comments Steps taken during transfer only. See mobility comments for details. Stair Climbing Assessment Comments Stair Climbing Comments Not assessed. No stairs at home. PT-Balance Assessment Sitting Balance and Reactions Static Sitting Balance Ability Good Dynamic Sitting Balance Ability Fair Standing Balance and Reactions Static Standing Balance Ability Fair Dynamic Standing Balance Ability Poor Device Used FWW M5 PT-IP Objective Assessments Start: 12/19/21 08:22 Freq: NEEDED Status: Active Protocol: Document 12/19/21 14:45 AW (Rec: 12/19/21 15:51 AW [id number]) Orientation Orientation/Cognition Level of Alertness Alert Orientation Name,Place,Situation Language Function Ability Tamazight as Second Language Safety Awareness Decreased Safety Awareness Strength Upper Extremity Strength Assessment Left Impaired Lower Extremity Strength Assessment Bilaterally Impaired Hip 3+/5 Comments Strength Comments Pt unable to elevate left arm without assist. No known injury. BLE strength was symmetrical by observation. Unable to formally assess due to pt not understanding instructions. Sensation Assessment Comments Sensation Comments Unable to formally assess. Muscle Tone Muscle Tone WNL Yes M6 PT-IP Treatment Start: 12/19/21 08:22 Freq: NEEDED Status: Active Protocol: Document 12/19/21 14:45 AW (Rec: 12/19/21 15:51 AW [id number]) Physical Therapy Treatment Education Education Provided Safety M7 PT-IP Assessment and Plan Start: 12/19/21 08:22 Freq: NEEDED Status: Active Protocol: Document 12/19/21 14:45 AW (Rec: 12/19/21 15:51 AW [id number]) PT Summary Assessment and Plan Potential Rehabilitation Potential Good Status of Condition at Evaluation Evolving Summary Impairments Strength,Balance,Cognition,Bed Mobility,Transfers,Gait, Activity Tolerance Assessment Summary Cee is a Tamazight-speaking 86 yo woman who was found down in her apartment on Saturday and brought to the ED. She was admitted with diabetic ketoacidosis and acute metabolic encephalopathy. All imaging was negative for acute process or fracture. She lives alone and is able to mobilize with 4WW in the halls of her building at baseline. Her daughter states pt is usually oriented but she worries pt may be rearranging her medication organizer when not supervised. She has family assist over the weekend and caregiver support ~4 hours daily three times during the week. Daughter states pt is not likely safe to live without 24/7 assist any longer . Pt required mod/max assist with transfer and bed mobility at this assessment and was too fatigued to participate further. Given her modified independent prior level of function, pt would benefit from SNF rehab at discharge to improve strength and mobility independence. Goals Bed Mobility Goal Standby Assistance Transfer Goal Standby Assistance,Front Wheeled Walker Gait Goal Standby Assistance,Front Wheel Walker Gait Distance 150 Other Goals -- improve transfers and gait to SBA with 4WW Days to Meet Goals 10 Frequency of Treatment Frequency Of Treatment Once a Day Treatment Plan Physical Therapy Treatment Plan Bed Mobility Training,Transfer Training,Gait Training, Therapeutic Exercise,Balance Retraining,Discharge Planning, Hot or Cold Pack,Neuromuscular Re-ed Other Recommendations and Next Treatment daughter to translate or phone Focus line custom protection officer; mobility as tolerated Recommendations To Nursing Amount of Assist Needed 2 Person Assist Discharge Recommendations PT Discharge Recommendations Home with 24/7 Assist Available,Home Health,SNF Rehab,Home vs SNF Transportation Needs at Discharge Private Vehicle,Wheelchair/ Cabulance
--- NOTE | 2021-12-19 14:46 | OT.IP.EVAL ---
Current Diagnoses Type 2 diabetes mellitus with ketoacidosis without coma (12/18/21) Past Medical History (Last Updated 12/18/21 @ 15:45 by Jimena Ramey MD) History of bilateral knee replacement Hyperlipidemia Hypertension Hypothyroidism Type 2 diabetes mellitus Surgical History (Last Updated 12/18/21 @ 15:47 by Jimena Ramey MD) History of bilateral knee replacement History of cataract removal with insertion of prosthetic lens Status post cholecystectomy Occupational Therapy Inpatient Evaluation/Re-Eval M1 PT/OT-IP Prior Functional Status Start: 12/19/21 08:22 Freq: NEEDED Status: Active Protocol: Document 12/19/21 14:18 [facility] (Rec: 12/19/21 15:07 [facility] [id number]) Medical Review Prior Functional Status Medical History Reviewed Yes Communication Pt is Ukrainian speaking and her daughter present to translate . Mobility and Gait Pt able to use 4ww all the time and per daughter states in the past was able to walk in the hallways and parking lot. Activities of Daily Living and IADL's Pt has caregivers that assist for IADL needs, has pill organizer, and assist for bills. Pt also needing assist for completeness for toileting and on occasion to get dressed. Pt also gets assist for showers. Pt has a caregiver that assist for 3x/ week for approximately 4 hours at a time. Otherwise her son come to stay from Saturday night to Saturday mornings and other family come to check on her after work. Pt's daughter stays pt is on her own approximately for two days. Social History Household Members caregiver Living Arrangements House Number of Floors (Floors) One Floor Number of Stairs To Enter/Railing? NO steps to enter the apartment. Home Environment High Toilet,Walk in Shower Home Equipment Four Wheel Walker,Straight Cane,Shower Seat with Backrest ,Hand Held Shower,Grab Bars In Shower M2 OT-IP Current Condition Start: 12/19/21 14:48 Freq: Status: Active Protocol: Document 12/19/21 14:18 [facility] (Rec: 12/19/21 15:07 [facility] [id number]) Occupational Therapy Current Condition Current Condition Evaluation Date 12/19/21 Treatment Diagnosis Diabetic Ketoacidosis, decreased mobility Diagnosis Onset Date 12/18/21 M3 OT- IP Subjective and Pain Start: 12/19/21 14:48 Freq: Status: Active Protocol: Document 12/19/21 14:18 [facility] (Rec: 12/19/21 15:07 [facility] [id number]) OT- Subjective Occupational Therapy Visit Type Type Initial Evaluation Visit Start Time 14:18 Visit Stop Time 14:46 Total Visit Minutes 28 Occupational Therapy Visit Comments Patient Comments Pt wanting to get back to bed. Patient/Caregiver Goals Pt wanting to go home and pt's daughter wanting her to go to skilled rehab. OT Pain Assessment Pain When Pain Assessed During Mobility Pain Present Pain Present Pain Reported Location Bilateral Arm Pain Behaviors Facial Grimacing,Guarding M4 OT- IP ADL's Start: 12/19/21 14:48 Freq: Status: Active Protocol: Document 12/19/21 14:18 [facility] (Rec: 12/19/21 15:07 [facility] [id number]) OT [id number] Comments OT Self-Feeding Comments Not at meal time. OT ADL-Grooming Comments OT Grooming Comments Not performed as pt just wanting to get back to bed. OT ADL-Oral Care Comments Oral Care Comments Not performed. OT ADL-Dressing General Eval Lower Body Dressing Ability Maximum Assistance Areas Needing Assistance Socks OT ADL-Toileting General Evaluation Toileting Ability Total Assistance Comments OT Toileting Comments Lam in place. OT ADL-Bathing Comments OT Bathing Comments Sponge bath more appropriate at this time. M5 OT- IP IADL's Start: 12/19/21 14:48 Freq: Status: Active Protocol: Document 12/19/21 14:18 [facility] (Rec: 12/19/21 15:07 [facility] [id number]) OT-Instrumental Activities of Daily Living Home Safety Awareness Awareness of Need for Assistance at Home Decreased Awareness Ability to Problem Solve Emergency Unable to Problem Solve Situations Medication Management Medication Management Caregiver Administers Money Management Money Management Caregiver Provides Assistance Meal Preparation Meal Preparation Caregiver Provides Assist Advertising Dispatch Clerks Supervisor Advertising Dispatch Clerks Supervisor Caregiver Provides Assist M6 OT- IP Functional Cognition Start: 12/19/21 14:48 Freq: Status: Active Protocol: Document 12/19/21 14:18 [facility] (Rec: 12/19/21 15:07 [facility] [id number]) Cognitive Factors Limiting Selfcare Function Cognitive Ability Level of Alertness Alert Patient Orientation Name Attention Span Ability Capable of Focused Attention Ability to Follow Commands Able to Follow One Step Commands with Increased Time, Able to Follow One Step Commands with Repetition Cognitive Comments Cognitive Assessment Comments Pt needing cues for FWW use and safety. Pt tends to want to let go of the walker when trying to get back to the bed. Pt is Ukrainian speaking and needing her daughter to translate. OT- Vision and Hearing OT- Vision Assessment Vision Assessment Comments To ask tomorrow M7 OT- IP Mobility and Balance Start: 12/19/21 14:48 Freq: Status: Active Protocol: Document 12/19/21 14:18 [facility] (Rec: 12/19/21 15:07 [facility] [id number]) OT- Bed Mobility Assessment Sit to Supine Sit to Supine Assist Maximum Assistance,2 Person Assistance OT-Transfer Assessment Sit to and From Stand Sit to and from Stand Moderate Assistance,1 Person Assistance,2 Person Assistance Transfers Transfer Ability Moderate Assistance,2 Person Assistance Technique Transfer Destination Bed,Chair Devices Transfer Assistive Devices Gait Belt,Front Wheeled Walker Comments Mobility Comments MODA x2 with FWW to get back to the bed. Pt having difficulty to hold LUE to hold the FWW at this time due to pain and decreased AROM. Pt's daughter states has a low bed at home and use of momentum to get into bed. Pt MAXA x2 to get back into bed at this time. OT- Gait Assessment Comments Gait Ability Comments Transfer only at this time. OT- Balance Assessment Sitting Balance and Reactions Static Sitting Balance Ability Fair Standing Balance and Reactions Static Standing Balance Ability Poor Dynamic Standing Balance Ability Poor M8 OT- IP Objective Assessments Start: 12/19/21 14:48 Freq: Status: Active Protocol: Document 12/19/21 14:18 [facility] (Rec: 12/19/21 15:07 [facility] [id number]) OT Gross Range of Motion Upper Extremity Range of Motion Assessment Bilaterally Impaired ROM Impairments LUE more impaired then RUE, pt unable o raise her LUE to reach the FWW OT Strength Upper Extremity Strength Assessment Bilaterally Impaired M9 OT- IP Assessment and Plan Start: 12/19/21 14:48 Freq: Status: Active Protocol: Document 12/19/21 14:18 [facility] (Rec: 12/19/21 15:07 [facility] [id number]) OT Summary Assessment and Plan Potential Rehabilitation Potential Fair Analytic Complexity at Evaluation Moderate Summary OT Impairments Pain,Range of Motion,Strength, Balance,Functional Cognition, Functional Mobility,Self- Feeding,Grooming,Dressing, Toileting,Bathing,Toilet Transfers,Shower Transfers, Activity Tolerance Progress Towards Goals Slow Progress due to Pain,Slow Progress due to Medical Issues,Slow Progress due to Activity Tolerance,Slow Progress due to Cognition Assessment Summary Pt MOD complexity and main barriers are pt now needing extensive assist for ADL and mobility due to weakness. Pt's daughter aware that pt would benefit now from 24/7 assist and talking to her family about options for the pt after pt goes to skilled rehab. Pt will greatly benefit from skilled rehab to maximize her independence with her needs. Goals Self-Feeding Goal Independent Grooming Goal Independent Dressing Goal Minimal Assistance Toileting Goal Minimal Assistance Bathing Goal Moderate Assistance Toilet Transfer Goal Independent Shower Transfer Goal Contact Guard Assistance Days to Meet Goals 30 Frequency of Treatment Frequency Of Treatment Once a Day Treatment Plan OT Treatment Plan ADL Training,Functional Cognition Training,Functional Mobility,Patient/Family Education,Discharge Planning Other Treatment Recommendations and Next Transfer to [facility] [place] with MODA X 2 Treatment Focus with FWW. Discharge Recommendations OT Discharge Recommendations SNF Rehab Transportation Needs at Discharge Wheelchair/Cabulance
--- NOTE | 2021-12-19 15:49 | DIET.CONS ---
Dietary Consultation Note Admission Date: 12/18/2021 11:45 Assessment: RD attempted to see pt twice today, first in AM but daughter went home, RD returned in afternoon but pt working with OT. RD to meet c pt and daughter Wed am. RD curious what pt eating and drinking at home unsupervised to contribute to A1c 11.1. Sounds like plan is for skilled facility which will help regulate pts BG as she can be on consistent carb diet with nursing help with medication administration. Ht: 154.94 cm Wt: 73.5 kg BMI: 30.6 UBW: Last BM: 12/18/21 (12/18/21 18:39) MNA: 9 Derick Score: 16 Diet: 12/19/21 Breakfast Carbohydrate Consistent Diet Diet Modifications: Carbohydrate level: Medium (3 CHO) Labs: RBC 3.59 X10^6/uL (4.0-5.2) L 12/19/21 04:44 Hgb 10.8 g/dL (12.0-16.0) L 12/19/21 04:44 Hct 33.0 % (36-46) L 12/19/21 04:44 Creatinine 0.44 mg/dL (0.52-1.04) L 12/19/21 04:44 Hemoglobin A1c 11.1 % (4.0-6.0) H 12/18/21 10:00 Lactate 1.0 mmol/L (0.7-2.1) 12/18/21 12:52 NT-Pro-B Natriuret Pep 847 pg/mL (<450) H 12/19/21 04:44 Electronically Signed by: Shelia Faria 12/19/21 15:49 Clinical Dietitian [address] [address]
[2021-12-19] MEDS: ACETAMINOPHEN 325 MG TABLET 650 MG PO (16:56)
--- NOTE | 2021-12-19 17:51 | PC.NURSE ---
Shift Note Patient alert and responsive this shift. Stated no se when asked in maltese where we were and what year it was this am. Was later able to tell daughter that she is in the hospital. Calm and cooperative and vital signs stable. Was off of room air while awake, but placed back on 2L O2 via nasal canula while asleep. Moves all extremities and follows commands. Assisted to commode and chair before lunchtime and assisted back to bed by PT after. Daughter at bedside for each meal to assist patient with eating and company. Patient off of insulin gtt and fluids this am per orders and is now acute care status. Patient turns self in bed independently. Able to make needs known; call light within reach.
[2021-12-19] MEDS: ATORVASTATIN 20 MG TABLET 10 MG PO (21:15)
[2021-12-20] VITALS (7 sets, daily range): BP systolic 113–173; BP diastolic 55–80; PULSE 67–98; RESP 16–22; TEMP 36.1–36.7; O2SAT 93–99
[2021-12-20] MEDS: ACETAMINOPHEN 325 MG TABLET 650 MG PO ×2 (00:25→05:47)
[2021-12-20] MEDS: LEVOTHYROXINE 75 MCG TABLET PO (05:46)
--- NOTE | 2021-12-20 06:18 | PC.NURSE ---
Patient is Anguillan speaking. Alert and oriented x2. CBGs 227 @ 2100 and 199@ 0200. Patient medicated x2 with Acetaminophen for headache and back pain. FLACC score 2. Patient able to sleep at long intervals. Patient had large loose stool and 1000 ml per schulz catheter. Daughter in to visit and assist mother during dinner. Patient relates that back pain is much improved. Facial bruising fading.
[2021-12-20] MEDS: INSULIN LISPRO 100 UNIT/ML 3ML VIAL SUBCUT ×3 (09:48→17:51)
[2021-12-20] MEDS: INSULIN NPH 100 UNIT/ML VIAL 8 UNIT SUBCUT (09:48)
[2021-12-20] MEDS: lisinopriL 10 MG TABLET PO (09:49)
[2021-12-20] MEDS: ENOXAPARIN 40 MG/0.4 ML SYRINGE SUBCUT (09:49)
[2021-12-20] MEDS: SODIUM CHLORIDE 0.9% FLUSH 10 ML IV ×2 (09:49→21:06)
--- NOTE | 2021-12-20 10:10 | PT.IPTN ---
Current Diagnoses Type 2 diabetes mellitus with ketoacidosis without coma (12/18/21) Physical Therapy Treatment Note M2 PT-IP Current Condition Start: 12/19/21 08:22 Freq: NEEDED Status: Active Protocol: Document 12/20/21 09:37 SP (Rec: 12/20/21 13:05 SP [id number]) Physical Therapy Current Condition Current Condition Evaluation Date 12/19/21 Treatment Diagnosis DKA; acute encephalopathy; impaired mobility and gait Onset Date 12/17/21 M3 PT-IP Subjective Start: 12/19/21 08:22 Freq: NEEDED Status: Active Protocol: Document 12/20/21 09:37 [facility] (Rec: 12/20/21 13:05 SP [id number]) Subjective Physical Therapy Visit Type Type Treatment Note Visit Start Time 09:37 Visit Stop Time 10:10 Total Visit Minutes 33 Notes Daughter arrived post transfer , assisted translating pre gait. Number of SITE SUPERVISOR Visits 1 Physical Therapy Visit Comments Patient Comments SITE SUPERVISOR time to acquire health advocate phone. Pt willing to mobilize with therapy and FILTRATION OPERATOR to [facility] [place]. Patient Goals Pt's daughter feels pt is no longer safe to live alone, requesting SNF and family are working on alternate arrangements of living with daughter possibly. M4 PT-IP Mobility and Gait Start: 12/19/21 08:22 Freq: NEEDED Status: Active Protocol: Document 12/20/21 09:37 SP (Rec: 12/20/21 13:05 SP [id number]) PT-Transfer Assessment Sit to and From Stand Sit to and from Stand Contact Guard Assistance, Minimal Assistance,1 Person Assistance,Use of Upper Extremities Equipment Transfer Assistive Device Gait Belt,Front Wheeled Walker Orthotic/Prosthetic Devices or Brace: No Transfers Transfer Destination Chair,Bedside Commode Transfer Technique pt ambulates with FWW Transfer Ability Level of Assist Contact Guard Assistance, Minimal Assistance,1 Person Assistance,Use of Upper Extremities Comments Mobility Comments Pt seated in chair, utilized health advocate phone, pt requested use of BSC. Scoot to EOchair CGA, STS from chair , cued push from chair SPT to BSC w/FWW CGA- Min A. Stand> sit CGA cues reach prior sit safety. Pt completed void/ BM, Sit>stand Min A cued upright posture, FILTRATION OPERATOR assisted pt pericare in standing and brief mgt. SPT back to chair CGA mod cues for back fully and hand placement. Pt rested in chair. Daughter arrived, assisted wtih translation. Sit >Stand gait across room and back to chair CGA- 5%A max cues closer to FWW and bring back fully with her assist as needed safety backing up to chair. Stand>sit CGA. Scoot back chair Max A x2 due to short posture via help from daughter. Pt had call light and all needs in reach reclined Leg rests elevated. Daughter in room. Daughter stated she is working if can help her after stronger need SNF at this time, will see if can get equipment: transfer bench, BSC, FWW when able to come home to stay with her in room trying to set up in daughters home. Gait Assessment Gait Gait Assistance Required: Contact Guard Assist,Minimum Assistance,1 Person Assist Distance (Feet) 30 Able to Maintain Weight Bearing Status Yes During Gait Assistive Devices Assistive Device Gait Belt,Front Wheeled Walker Orthotic/Prosthetic Devices or Brace: No Gait Deviations General Gait Pattern Decreased Stride Length, Decreased Feet Clearance, Flexed Trunk,Narrow Based Gait Factors Limiting Gait Function Factors Limiting Gait Function Decreased Activity Tolerance, Decreased Strength,Difficulty Following Directions,Poor Balance,Poor Safety Awareness Comments Gait Comments Progressed pivot and gait across room, step to in itially then step over step, min A as needed for FWW positioning back up to chair safety. Stair Climbing Assessment Comments Stair Climbing Comments Not assessed. No stairs at home. PT-Balance Assessment Sitting Balance and Reactions Static Sitting Balance Ability Normal Dynamic Sitting Balance Ability Good Standing Balance and Reactions Static Standing Balance Ability Good Dynamic Standing Balance Ability Fair Device Used FWW M5 PT-IP Objective Assessments Start: 12/19/21 08:22 Freq: NEEDED Status: Active Protocol: Document 12/19/21 14:45 AW (Rec: 12/19/21 15:51 AW [id number]) Orientation Orientation/Cognition Level of Alertness Alert Orientation Name,Place,Situation Language Function Ability Bengali as Second Language Safety Awareness Decreased Safety Awareness Strength Upper Extremity Strength Assessment Left Impaired Lower Extremity Strength Assessment Bilaterally Impaired Hip 3+/5 Comments Strength Comments Pt unable to elevate left arm without assist. No known injury. BLE strength was symmetrical by observation. Unable to formally assess due to pt not understanding instructions. Sensation Assessment Comments Sensation Comments Unable to formally assess. Muscle Tone Muscle Tone WNL Yes M6 PT-IP Treatment Start: 12/19/21 08:22 Freq: NEEDED Status: Active Protocol: Document 12/20/21 09:37 SP (Rec: 12/20/21 13:05 SP [id number]) Physical Therapy Treatment Education Education Provided Safety M7 PT-IP Assessment and Plan Start: 12/19/21 08:22 Freq: NEEDED Status: Active Protocol: Document 12/20/21 09:37 SP (Rec: 12/20/21 13:05 SP [id number]) PT Summary Assessment and Plan Potential Rehabilitation Potential Good Status of Condition at Evaluation Evolving Summary Impairments Strength,Balance,Cognition,Bed Mobility,Transfers,Gait, Activity Tolerance Progress Towards Goals Progressing Toward Goals,Slow Progress due to Activity Tolerance Assessment Summary Pt improved CG- Min A and safety cues for hand placement and FWW repositioning gait in room. She lives alone and is able to mobilize with 4WW in the halls of her building at baseline. Given her modified independent prior level of function, pt would benefit from SNF rehab at discharge to improve strength and mobility independence. Will continue to assess progress. Goals Bed Mobility Goal Standby Assistance Transfer Goal Standby Assistance,Front Wheeled Walker Gait Goal Standby Assistance,Front Wheel Walker Gait Distance 150 Other Goals -- improve transfers and gait to SBA with 4WW Days to Meet Goals 10 Frequency of Treatment Frequency Of Treatment Once a Day Treatment Plan Physical Therapy Treatment Plan Bed Mobility Training,Transfer Training,Gait Training, Therapeutic Exercise,Balance Retraining,Discharge Planning, Hot or Cold Pack,Neuromuscular Re-ed Other Recommendations and Next Treatment daughter to translate or phone Focus line health advocate; bed mob, gait FWW, 4WW is safe. Recommendations To Nursing Amount of Assist Needed 1 Person Assist Discharge Recommendations PT Discharge Recommendations Home with 25/03 Assist Available,Home Health,SNF Rehab,Home vs SNF Equipment Needed for Home Before transfer bench, BSC, FWW Discharge Transportation Needs at Discharge Private Vehicle,Wheelchair/ Cabulance
[2021-12-20] MEDS: ONDANSETRON 4 MG/2 ML INJ IV (10:14)
[2021-12-20] MEDS: METOCLOPRAMIDE 10 MG/2 ML INJ IV ×2 (11:21→18:27)
[2021-12-20 11:23] LABS: Acinetobacter baumannii Not Detected (Not Detect); Candida albicans Not Detected (Not Detect); Candida glabrata Not Detected (Not Detect); Candida krusei Not Detected (Not Detect); Candida parapsilosis Not Detected (Not Detect); Candida tropicalis Not Detected (Not Detect); E. coli Not Detected (Not Detect); Enterobacter cloacae complex Not Detected (Not Detect); Enterobacteriaceae species Not Detected (Not Detect); Enterococcus species Not Detected (Not Detect); Haemophilus influenzae Not Detected (Not Detect); Listeria monocytogenes Not Detected (Not Detect); Neisseria meningitidis Not Detected (Not Detect); Proteus species Not Detected (Not Detect); Pseudomonas aeruginosa Not Detected (Not Detect); Serratia marcescens Not Detected (Not Detect); Staphylococcus species Not Detected (Not Detect); Streptococcus agalactiae (Gr B Not Detected (Not Detect); Streptococcus pneumonia Not Detected (Not Detect); Streptococcus pyogenes (Gr A) Not Detected (Not Detect); Streptococcus species Not Detected (Not Detect)
[2021-12-20 12:06] LABS: COVID19 -Nasal RAPID Negative (Negative)
--- NOTE | 2021-12-20 12:33 | PC.NURSE ---
1100- Spoke with Dr. Ramey on rounds. Discussed plan of care. Reported NOC shift RN states pt with sleep apnea requiring O2 HS. Dr. Ramey states pt will be discharged and she will recommended O2 HS while at SNF and while waiting on formal sleep study outpatient.
--- NOTE | 2021-12-20 12:46 | CM.DPC ---
Addendum entered by ZEFERINO Eng 12/20/21 13:11: ADD: Pt's Dtr Lilibeth called back and SW updated her on the plan for likely d/c tomorrow to [facility] and she acknowledges understanding and agreeable. BF Original Note: DCP SNF Cont Per MD, pt continues to have some nausea and given Reglan and will see how she tolerates lunch intake before determining if medically stable for d/c today. SW spoke to [facility] admissions who confirms they just received insurance auth for SNF but have a staffing issue so cannot accept pt until tomorrow 12/21/21 around likely [phone]. SW updated RN and MD and RN obtained updated COVID swab today that is negative and [facility] confirms this still in timeframe for d/c tomorrow. SW called pt's Dtr Lilibeth and left msg with update on plan of discharge tomorrow mid morning. Plan: SW to follow for plan of d/c to [facility] rehab tomorrow around 1030 if medically stable. ZEFERINO Eng
--- NOTE | 2021-12-20 14:20 | P.PN_ITS ---
Subjective Subjective Date Patient Seen: 12/20/21 Interval history: 86-year-old female type 2 diabetes fell at home presented to the hospital with diabetic ketoacidosis. Today the patient complains of nausea, she has had no vomiting. But feels like she is going to vomit. She did eat 25% of her meal. Her blood sugars have been somewhat elevated however patient had a hemoglobin A1c of 11.2 %. She and her family would like her to go to shelter at discharge. Exam Vital Signs (past 8 hours): - 12/20/21 08:00 12/20/21 11:01 Temperature 97.8 F 98.1 F Pulse Rate 89 92 H Respiratory Rate 18 18 Blood Pressure 143/65 H 173/79 H Pulse Oximetry 99 94 Oxygen Delivery Method Room Air,Nasal Cannula Oxygen Flow Rate 2 Narrative Exam Narrative: Pleasant female sitting in bed Gibraltarian-speaking in no obvious distress Resp Other: Lungs clear to auscultation Cardio Other: Cardiac exam: Regular rate rhythm normal S1-S2 with a 2/6 systolic ejection murmur GI Other: Abdomen: Soft nontender nondistended, no palpable masses Extrem Other: Extremity no edema Objective Labs Result Diagrams: 12/19/21 04:44 12/19/21 04:44 Labs: Laboratory Results - last 24 hr 12/18/21 12/20/21 10:08 11:23 A. baumannii (PCR) Not detected Sandra albicans (PCR) Not detected C. glabrata (PCR) Not detected C. krusei (PCR) Not detected C. parapsilosis (PCR) Not detected C. tropicalis (PCR) Not detected SARS-CoV-2 (PCR) Negative Enterobacteriac sp PCR Not detected E. cloacae complex PCR Not detected Enterococcus sp PCR Not detected E. coli (PCR) Not detected H. influenzae (PCR) Not detected Klebsiella oxytoca PCR Not detected Klebsiella pneumoniae Not detected List. monocytogenes PCR Not detected N. meningitidis (PCR) Not detected Proteus species (PCR) Not detected Serratia marcescens PCR Not detected Staphylococcus sp PCR Not detected Staph aureus (PCR) Not detected mecA-Methicil Res Gene Not Reportable Streptococcus sp PCR Not detected Group A Strep (PCR) Not detected Strep agalactiae (PCR) Not detected Strep pneumoniae (PCR) Not detected P. aeruginosa (PCR) Not detected Kenneth/B-Vanco Res Genes Not Reportable KPC-Carbap Res Gene PCR Not Reportable [facility] Medical History (Updated 12/18/21 @ 15:45 by Jimena Ramey MD) Hyperlipidemia Hypertension Hypothyroidism Type 2 diabetes mellitus Surgical History (Updated 12/18/21 @ 15:47 by Jimena Ramey MD) History of bilateral knee replacement History of cataract removal with insertion of prosthetic lens Status post cholecystectomy Family History Brother High cholesterol Stroke Social History household members: caregiver Smoking Status: Never smoker Assessment & Plan Assessment & Plan narrative: 86-year-old female with a history of type 2 diabetes, hypertension, hyperlipidemia, hypothyroidism who was found down now admitted to the hospital with diabetic ketoacidosis * Per the daughter patient slipped and fell and was unable to get up * Head CT negative for intracranial abnormality cervical spine film showed no acute osseous lesion * Chest x-ray were negative * Pelvic x-ray reveals no fracture * Blood sugar 616 on admission, initial bicarb low at 19, white count elevated at 19, serum sodium 146, hemoglobin 11.1 * Patient current on an insulin drip with improvement of blood sugars, will continue to monitor electrolytes closely * She has transitioned off the insulin drip now on NPH insulin, will continue to titrate doses as blood sugar remains elevate * There is no obvious source of infection, UA shows 10-30 wbc's but no RBCs * Will hold glyburide, and metformin at this time, discontinue both as we will start insulin * Agree with initiation of insulin, patient will be going to SNF at discharge who can manage this for her Hypertension * Continue lisinopril Hyperlipidemia * Continue statin Hypothyroidism * Continue L-thyroxine Elevated troponin * Suspect demand ischemia, 12 lead EKG does not reveal acute ST T wave abnormalities * Will continue to monitor closely Gait instability * Will obtain PT OT consultation * Will continue Lovenox for DVT prophylaxisWill start diet, advanced as tolerated, Nausea * 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 Quality VTE Deep Vein Thrombosis/Pulmonary Embolism Present on Admission: No
--- NOTE | 2021-12-20 16:44 | OT.IPNOTE ---
Pt just completed shower with nursing aid and in bed and too tired to do OT at this time. To check on the pt tomorrow.
[2021-12-20] MEDS: INSULIN NPH 100 UNIT/ML VIAL 12 UNIT SUBCUT (17:51)
[2021-12-20] MEDS: ATORVASTATIN 20 MG TABLET 10 MG PO (21:05)
[2021-12-20] MEDS: DOCUSATE 100 MG CAPSULE PO (21:05)
[2021-12-21 03:00] VITALS: BP 137/65; PULSE 81; RESP 16; TEMP 37.1; O2SAT 93
[2021-12-21] MEDS: LEVOTHYROXINE 75 MCG TABLET PO (06:36)
[2021-12-21] MEDS: INSULIN NPH 100 UNIT/ML VIAL 12 UNIT SUBCUT (06:46)
[2021-12-21 08:00] VITALS: BP 142/65; PULSE 90; RESP 20; TEMP 36.8; O2SAT 92
--- NOTE | 2021-12-21 09:08 | DIET.CONS ---
Dietary Consultation Note Admission Date: 12/18/2021 11:45 Assessment: 86y ghanaian-speaking F c DM2 found down at home admitted for DKA (A1c 11.1) c ongoing nausea. Pt lives at home with frequent caregivers and family assisting. Gastroparesis likely contributing to pts nausea given suboptimal BG control. Pts POs 25-50% this hospitalization. Pt going to SNF upon d/c. Ht: 154.94 cm Wt: 73.5 kg BMI: 30.6 Last BM: 12/20/21 (12/20/21 13:00) MNA: 9 Derick Score: 19 Diet: 12/19/21 Breakfast Carbohydrate Consistent Diet Diet Modifications: Carbohydrate level: Medium (3 CHO) Nutrition Percent Meal Consumed few bites of meatloaf, sips of 12/20/21 18:57 cranberry juice Percent Meal Consumed few bites of fruit 12/20/21 13:00 Percent Meal Consumed 25% 12/20/21 09:30 Percent Meal Consumed 50% 12/19/21 13:00 Percent Meal Consumed 25% 12/19/21 11:00 Labs: RBC 3.59 X10^6/uL (4.0-5.2) L 12/19/21 04:44 Hgb 10.8 g/dL (12.0-16.0) L 12/19/21 04:44 Hct 33.0 % (36-46) L 12/19/21 04:44 Creatinine 0.44 mg/dL (0.52-1.04) L 12/19/21 04:44 Hemoglobin A1c 11.1 % (4.0-6.0) H 12/18/21 10:00 Lactate 1.0 mmol/L (0.7-2.1) 12/18/21 12:52 NT-Pro-B Natriuret Pep 847 pg/mL (<450) H 12/19/21 04:44 Nutrition Diagnosis: altered nutrition related laboratory values (A1c) r/t poor appetite and difficulty c DM management aeb pt admitted c DKA, A1c 11.1, pt has ongoing nausea resulting in poor POs, 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 Interventions: 1. Recc ONS Glucerna after any meal where POs <50% to support nutrition status in formula that low fiber and low fat to not aggravate nausea. 2. Recc increased cargivers to assist with meal prep, feeding, and medication management for better BG control. EER: 30g CHO/meal Monitoring/Evaluations: ONS tolerance Electronically Signed by: Shelia Faria 12/21/21 09:08 Clinical Dietitian [address] [address]
[2021-12-21 09:15] VITALS: PULSE 90; RESP 18; O2SAT 94
--- NOTE | 2021-12-21 09:30 | PM.DS.1 ---
History of Present Illness History of Present Illness Chief complaint: Found down Narrative: 86-year-old female with a history of type 2 diabetes, hypertension, hypothyroidism, hyperlipidemia who was found down at home and unresponsive.The patient is primarily Macanese-speaking, history is obtained through her daughter who is interpreting and reports the history. Apparently the patient has caregivers with her 7 days a week. Her son was supposed to be with her over the weekend but left her to run to his home in [place] to obtain something. While he was gone the patient reports she was getting out of a shower tripped and fell. 1 she was down on the ground she was unable to get up. Patient has a medic alert bracelet necklace but she failed to activated. It is believed that the patient was down for approximately 12 hours. She denies any headache neck pain chest pain or shortness of breath. She had no nausea vomiting or diarrhea. The patient was brought into the emergency room for further evaluation. In the emergency room the patient had a head CT which was unremarkable. She had a chest x-ray which was negative. Cervical spine films which were also negative. An EKG which showed sinus rhythm and an old inferior infarct but no acute ST-T changes. Her initial troponin was elevated at 0.051. Patient was found to be in DKA. Upon admission her blood sugar was 616. Bicarb was 19. Initial lactate was 2, repeat lactate of 1. The patient was [place]feb[place]. [place] [address]. IV fluids in the emergency department and started on an insulin drip and transferred to the intensive care unit. At this time the patient is arousable, she is responsive, able to follow commands. Patient is admitted to the hospital for diabetic ketoacidosis. Discharge Providers Provider Date of admission: 12/18/21 11:45 Discharge Date: 12/21/21 Primary care physician: Malinda Valenzuela MD Consults: 12/18/21 16:04 Consult to Dietitian, Adult Routine Comment: DKa Reason For Exam: DKA Consult to Occupational Therapy Evaluate & Treat Comment: Physician Instructions: Evaluate and treat Consult to Physical Therapy Evaluate & Treat Comment: Physician Instructions: Evaluate and Treat 12/18/21 16:25 Consult to Dietitian, Adult Routine Comment: Reason For Exam: decreased appetite, assessed at high risk per MNA Discharge provider: Jimena Ramey MD Summary Hospital Course Discharge Diagnosis: 1. Diabetic ketoacidosis, Type 2 Diabetes 2. Status post fall 3. Hypothyroid 4. Hyperlipidemia 5. Hypertension 6. Probable gastroparesis 7. Elevated troponin, suspect demand ischemia no evidence of myocardial infarction Hospital Course: Patient was admitted to the hospital following a fall. She was found to have diabetic ketoacidosis. Patient was treated with IV insulin, she was ultimately transition to subcutaneous insulin. The patient's hemoglobin A1c was markedly elevated at 11%. She did complain of some nausea, this responded to Reglan. She had 1 of 2 blood cultures positive for Gram-positive Paxil eye, this was felt to be a contaminant. The patient had no further blood cultures that were positive, and no fevers. She was noted to be hypoxic at night with sleeping. Back she has underlying sleep apnea. Would arrange for an outpatient sleep study, and in the antrum use oxygen at night while sleeping. Overall the patient made significant improvement. Patient was seen by physical therapy and occupational therapy. It was felt that she would benefit from rehabilitation at discharge. She was deemed appropriate for discharge and arrangements for me made for her to discharge to [facility] for ongoing rehabilitation. Status at Discharge Cognitive/behavioral status at discharge: confused Functional status at discharge: uses cane/walker Overall status at discharge: patient is progressing back to baseline Exam Vital Signs (past 8 hours): - 12/21/21 03:00 12/21/21 08:00 12/21/21 09:15 Temperature 98.7 F 98.3 F Pulse Rate 81 90 90 Respiratory Rate 16 20 18 Blood Pressure 137/65 142/65 H Pulse Oximetry 93 92 94 Oxygen Delivery Method Room Air Oxygen Flow Rate 0 Narrative Exam Narrative: Elderly female lying in bed in no obvious distress Resp Other: Lungs: Clear to auscultation Cardio Other: Cardiac exam: Regular rate and rhythm normal S1-S2 with a 2/6 systolic ejection murmur GI Other: Abdomen: Soft and nontender Extrem Other: Extremities: No edema Objective Labs Result Diagrams: 12/19/21 04:44 12/19/21 04:44 Labs: Laboratory Results - last 24 hr 12/18/21 12/20/21 10:08 11:23 A. baumannii (PCR) Not detected Sandra albicans (PCR) Not detected C. glabrata (PCR) Not detected C. krusei (PCR) Not detected C. parapsilosis (PCR) Not detected C. tropicalis (PCR) Not detected SARS-CoV-2 (PCR) Negative Enterobacteriac sp PCR Not detected E. cloacae complex PCR Not detected Enterococcus sp PCR Not detected E. coli (PCR) Not detected H. influenzae (PCR) Not detected Klebsiella oxytoca PCR Not detected Klebsiella pneumoniae Not detected List. monocytogenes PCR Not detected N. meningitidis (PCR) Not detected Proteus species (PCR) Not detected Serratia marcescens PCR Not detected Staphylococcus sp PCR Not detected Staph aureus (PCR) Not detected mecA-Methicil Res Gene Not Reportable Streptococcus sp PCR Not detected Group A Strep (PCR) Not detected Strep agalactiae (PCR) Not detected Strep pneumoniae (PCR) Not detected P. aeruginosa (PCR) Not detected Kenneth/B-Vanco Res Genes Not Reportable KPC-Carbap Res Gene PCR Not Reportable [facility] Medical History (Updated 12/18/21 @ 15:45 by Jimena Ramey MD) Hyperlipidemia Hypertension Hypothyroidism Type 2 diabetes mellitus Surgical History (Updated 12/18/21 @ 15:47 by Jimena Ramey MD) History of bilateral knee replacement History of cataract removal with insertion of prosthetic lens Status post cholecystectomy Family History Brother High cholesterol Stroke Social History household members: caregiver Smoking Status: Never smoker Discharge Assessment & Plan Assessment and Plan Assessment: 1. Diabetic ketoacidosis, Type 2 Diabetes 2. Status post fall 3. Hypothyroid 4. Hyperlipidemia 5. Hypertension 6. Probable gastroparesis 7. Elevated troponin, suspect demand ischemia no evidence of myocardial infarction Plan of Treatment: Discharged to [facility] long-term Discharge Plan Discharge Plan Patient Disposition: SNF Transfer to: [facility] Consult as needed: Dental, Hearing, Mental health, Podiatry and Vision Discharge orders & Medications Prescriptions: New atorvastatin [Lipitor] 20 mg Tablet 10 mg PO BEDTIME Qty: 30 0RF metoclopramide HCl [Reglan] 10 mg tablet 10 mg PO QACHS Qty: 30 0RF Humulin N NPH U-100 Insulin 100 unit/mL Suspension 12 unit SUBCUT BIDAC 30 Days 0RF Continued simvastatin 20 MG tablet 20 mg PO HS Qty: 90 3RF levothyroxine 75 mcg tablet 75 mcg PO QAM 0RF Label Comments: TAKE 1 TABLET BY MOUTH EVERY DAY lisinopril 10 mg tablet 10 mg PO DAILY 0RF Label Comments: TAKE 1 TABLET BY MOUTH EVERY DAY lidocaine 5 % Adhesive Patch,Medicated 1 patch TOPICAL DAILY 0RF Rx Instructions: leave on most painful area for up to 12 hrs diclofenac sodium 1 % Gel 2 g TOPICAL QID PRN (Reason: joint pain) 0RF Rx Instructions: apply to single elbow, wrist or hand; for hand includes palm/fingers/back of hand Discontinued metformin [Glucophage] 1,000 MG tablet 1,000 mg PO BIDCC Qty: 180 3RF glipizide 5 MG tablet 5 mg PO BID 0RF No Action (DME) OneTouch Verio test strips Strip MISCELLANEOUS 0RF Label Comments: USE 1 STRIP ONCE A DAY Follow up/Referrals: Malinda Valenzuela MD [Primary Care Provider] - Discharge Health Status Multidrug resistant organism: No MDRO Diet/Activity/Treatments Diet: Carb-consistent/Diabetic Liquid consistency: Normal/Thin Food texture: Regular [facility] Reason for rehabilitation: Recovery r/t decondition Rehab type: Physical therapy and Occupational therapy Discharge Data Primary Care Provider: Malinda Valenzuela Quality VTE Deep Vein Thrombosis/Pulmonary Embolism Present on Admission: No
--- NOTE | 2021-12-21 09:44 | PT.IPTN ---
Current Diagnoses Type 2 diabetes mellitus with ketoacidosis without coma (12/18/21) Physical Therapy Treatment Note M2 PT-IP Current Condition Start: 12/19/21 08:22 Freq: NEEDED Status: Active Protocol: Document 12/21/21 09:23 SP (Rec: 12/21/21 11:43 SP [id number]) Physical Therapy Current Condition Current Condition Evaluation Date 12/19/21 Treatment Diagnosis DKA; acute encephalopathy; impaired mobility and gait Onset Date 12/17/21 M3 PT-IP Subjective Start: 12/19/21 08:22 Freq: NEEDED Status: Active Protocol: Document 12/21/21 09:23 SP (Rec: 12/21/21 11:43 SP [id number]) Subjective Physical Therapy Visit Type Type Treatment Note Visit Start Time 09:23 Visit Stop Time 09:44 Total Visit Minutes 21 Notes PARIMUTUEL CASHIER tried to acquire clothes presser phone, outpt phone not working. PARIMUTUEL CASHIER asked COMMERCIAL FINANCE ANALYST for translation assist when needed. Number of PARIMUTUEL CASHIER Visits 2 Physical Therapy Visit Comments Patient Comments Pt willing to mobilize with therapy and COMMERCIAL FINANCE ANALYST to [facility]. M4 PT-IP Mobility and Gait Start: 12/19/21 08:22 Freq: NEEDED Status: Active Protocol: Document 12/21/21 09:23 SP (Rec: 12/21/21 11:43 SP [id number]) PT-Transfer Assessment Sit to and From Stand Sit to and from Stand Standby Assistance,Contact Guard Assistance,1 Person Assistance,Use of Upper Extremities Equipment Transfer Assistive Device Gait Belt,Front Wheeled Walker Orthotic/Prosthetic Devices or Brace: No Transfers Transfer Destination Chair Transfer Ability Level of Assist Standby Assistance,Contact Guard Assistance,1 Person Assistance,Use of Upper Extremities Comments Mobility Comments Pt seated in chair when arrived, PARIMUTUEL CASHIER assisted lower chair leg rest. Scoot to EOChair using BUE. Sit>stand cGA progress gait w/ FWW across room and into hallway approx 120 ft total, cues for body closer and more upright posture. Pt returned to chair, cued back up fully and hand over hand cues for reaching for safety slow sit. Pt declined bed mobility due to challenging doesn't go lower for her decreased height. Pt agreeable to 5 x STS from chair in 25 sec hands on walker for balance, slow moving but able to do stable. Pt requested don personal gown , PARIMUTUEL CASHIER asked Talia nurse and stated is ok to help her don. Pt required Max A x1 and asked COMMERCIAL FINANCE ANALYST with assist later, unavailable to help scoot back further in chair, leg rests elevated w/ warm blanket before left, provided chair alarm due to fall risk. Gait Assessment Gait Gait Assistance Required: Standby Assistance,Contact Guard Assist,1 Person Assist Distance (Feet) 120 Able to Maintain Weight Bearing Status Yes During Gait Assistive Devices Assistive Device Gait Belt,Front Wheeled Walker Orthotic/Prosthetic Devices or Brace: No Gait Deviations General Gait Pattern Antalgic,Decreased Stride Length,Decreased Feet Clearance,Flexed Trunk,Narrow Based Gait Factors Limiting Gait Function Factors Limiting Gait Function Decreased Activity Tolerance, Decreased Strength,Difficulty Following Directions,Poor Safety Awareness Comments Gait Comments see mobility details Stair Climbing Assessment Comments Stair Climbing Comments Not assessed. No stairs at home. PT-Balance Assessment Sitting Balance and Reactions Static Sitting Balance Ability Normal Dynamic Sitting Balance Ability Normal Standing Balance and Reactions Static Standing Balance Ability Good Dynamic Standing Balance Ability Good Device Used FWW Functional Assessments Functional Tests 5 Times Sit to Stand 25 sec Other Functional Tests Performed assess balance next tx. M5 PT-IP Objective Assessments Start: 12/19/21 08:22 Freq: NEEDED Status: Active Protocol: Document 12/19/21 14:45 AW (Rec: 12/19/21 15:51 AW [id number]) Orientation Orientation/Cognition Level of Alertness Alert Orientation Name,Place,Situation Language Function Ability Malaysian as Second Language Safety Awareness Decreased Safety Awareness Strength Upper Extremity Strength Assessment Left Impaired Lower Extremity Strength Assessment Bilaterally Impaired Hip 3+/5 Comments Strength Comments Pt unable to elevate left arm without assist. No known injury. BLE strength was symmetrical by observation. Unable to formally assess due to pt not understanding instructions. Sensation Assessment Comments Sensation Comments Unable to formally assess. Muscle Tone Muscle Tone WNL Yes M6 PT-IP Treatment Start: 12/19/21 08:22 Freq: NEEDED Status: Active Protocol: Document 12/21/21 09:23 SP (Rec: 12/21/21 11:43 SP [id number]) Physical Therapy Treatment Education Education Provided Safety M7 PT-IP Assessment and Plan Start: 12/19/21 08:22 Freq: NEEDED Status: Active Protocol: Document 12/21/21 09:23 SP (Rec: 12/21/21 11:43 SP [id number]) PT Summary Assessment and Plan Potential Rehabilitation Potential Good Status of Condition at Evaluation Evolving Summary Impairments Strength,Balance,Cognition,Bed Mobility,Transfers,Gait, Activity Tolerance Progress Towards Goals Progressing Toward Goals,Slow Progress due to Activity Tolerance Assessment Summary Pt improved CG- sBA and safety cues for hand placement and FWW repositioning closer during longer distance gait 120 ft gait into hallway. She lives alone mobilizes with 4WW in the halls of her building at baseline. Given her modified independent prior level of function, pt would benefit from SNF rehab at discharge to improve strength and mobility independence. Will continue to assess progress. Goals Bed Mobility Goal Standby Assistance Transfer Goal Standby Assistance,Front Wheeled Walker Gait Goal Standby Assistance,Front Wheel Walker Gait Distance 150 Other Goals -- improve transfers and gait to SBA with 4WW Days to Meet Goals 10 Frequency of Treatment Frequency Of Treatment Once a Day Treatment Plan Physical Therapy Treatment Plan Bed Mobility Training,Transfer Training,Gait Training, Therapeutic Exercise,Balance Retraining,Discharge Planning, Hot or Cold Pack,Neuromuscular Re-ed Other Recommendations and Next Treatment daughter to translate or phone Focus line clothes presser; bed mob, assess gait 4WW is safe, balance assessment. Recommendations To Nursing Amount of Assist Needed Standby Assistance,1 Person Assist Discharge Recommendations PT Discharge Recommendations Home with / Assist Available,Home Health,SNF Rehab,Home vs SNF Equipment Needed for Home Before transfer bench, BSC, FWW Discharge Transportation Needs at Discharge Private Vehicle,Wheelchair/ Cabulance
[2021-12-21 10:07] VITALS: BP 142/65
[2021-12-21] MEDS: LIDOCAINE PATCH 1 EACH ADH..PATCH TOP (10:07)
[2021-12-21] MEDS: lisinopriL 10 MG TABLET PO (10:07)
[2021-12-21] MEDS: DOCUSATE 100 MG CAPSULE PO (10:08)
[2021-12-21] MEDS: ENOXAPARIN 40 MG/0.4 ML SYRINGE SUBCUT (10:08)
--- NOTE | 2021-12-21 10:49 | CM.DPC ---
DCP Discharge SNF Per , pt is medically stable to d/c to SNF today and wrote discharge and no identified barriers to discharge. DIANA called [facility] and confirmed they can still accept around 1100 and KRISTIN heller is still in the timeframe to accept. DIANA faxed d/c summary, signed med list, no scripts, PASRR, updated KRISTIN heller MD orders to [facility] to review. DIANA provided RN Beverley report number to MONIE Melgar and updated PICTURE ENGRAVER and inspector penetrant. DIANA called Dtr Lilibeth and provided update and pt's Medicare Message via phone and she confirms agreement with pt d/c today and will be at [facility] for admission to help with admission pwk due to language barrier. Plan: Patient to d/c to [facility] SNF rehab at 1100 via facility van prior to safe return home. ZEFERINO nEg
--- NOTE | 2021-12-21 11:23 | PC.NURSE ---
Pt is ready for d/c to [facility]. report is given to Beverley. All questions were answered. Pt c/o headache and tylenol given. It was effective. Pt out via w/c by facility transporter with all belongings.
== END 2021-12-21 11:00 | DRG 637 ==
LOC: ED 11:45 → AC 13:16 → ICU 12-19 08:56 → AC 12-25 07:51 → ICU 12-25 07:51
PROVIDERS: Emergency Medicine; Admitting Provider Internal Medicine; Emergency Provider Emergency Medicine; PCP Family Medicine; Referring Provider Emergency Medicine; Visit Provider Internal Medicine
DX: E11.10 Type 2 diabetes mellitus with ketoacidosis without coma (principal); G93.41 Metabolic encephalopathy; I24.8 Other forms of acute ischemic heart disease; I10 Essential (primary) hypertension; E78.5 Hyperlipidemia, unspecified; E03.9 Hypothyroidism, unspecified; R26.89 Other abnormalities of gait and mobility; E11.43 Type 2 diabetes mellitus with diabetic autonomic (poly)neuropathy; K31.84 Gastroparesis; S00.83XA Contusion of other part of head, initial encounter; W18.2XXA Fall in (into) shower or empty bathtub, initial encounter; Z20.822 Contact with and (suspected) exposure to COVID-19; Z79.84 Long term (current) use of oral hypoglycemic drugs
CPT/HCPCS: 36415; 36600; 70450; 71045; 72125; 72170; 80048; 80053; 81001; 82009; 82140; 82550; 82553; 82607; 82805; 82962; 83036; 83605; 83690; 83735; 83880; 84100; 84443; 84484; 85025; 85610; 85730; 87040; 87150; 87205; 87635; 87797; 93005; 94762; 96361; 96365; 96366; 96368; 97116; 97162; 97166; 97530; 99285; 99291; C9803; J1650; J1815; J2405; J2765; J3475; J3480

== ENCOUNTER 2023-05-07 13:19 | Emergency (ER) | payer MEDICARE, MEDICAID, SELFPAY ==
[2021-12-18 18:39] VITALS: BMI 30.6
[2023-05-07 13:38] VITALS: BP 180/77; PULSE 77; RESP 16; TEMP 36.6; O2SAT 97
--- NOTE | 2023-05-07 13:45 | DI.RAD.S_ITS ---
PROCEDURE: XR KNEE LT 3V INDICATIONS: pain/swelling TECHNIQUE: 3 views of the knee were acquired. COMPARISON: [facility], CR, KNEE MIN 4VW (LT), 10/22/2013, 11:23. FINDINGS: Bones: There is left knee total arthroplasty. Knee prosthesis is intact. No fractures or dislocations. No suspicious bony lesions. Soft tissues: Small joint effusion. No suspicious soft tissue calcifications. Prepatellar soft tissue swelling. IMPRESSION: 1. No acute osseous abnormality. 2. 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 3. Small knee joint effusion. Dictated by: Valentine Vanessa M.D. on 05/07/2023 at 16:26 Approved by: Valentine Vanessa M.D. on 05/07/2023 at 16:27
--- NOTE | 2023-05-07 15:59 | ED.EXTPRO ---
HPI - Extremity Problem <Nasima Stewart PA-C - Last Filed: 05/13/23 17:05> General Chief complaint: Extremity Problem,Nontraumatic Stated complaint: L leg pain, Hx knee replacement Time Seen by Provider: 05/07/23 15:58 Source: patient Mode of arrival: Ambulatory History of Present Illness HPI Narrative: 87-year-old female with past medical history hypothyroidism, diabetes, hyperlipidemia, diabetic retinopathy presents to the ED with pain and swelling behind the left knee. Patient endorses aggravation of the pain with walking, states that it radiates up into her left buttock. Patient has been taking ibuprofen with some relief. No trauma including falls or injuries. Patient has had prior knee replacement surgery in that knee. Patient is able to walk with a walker which is baseline. Patient denies numbness, tingling, weakness. Related Data Home Medications Medication Instructions Recorded Confirmed blood sugar diagnostic (OneTouch 12/18/21 12/18/21 Verio test strips) diclofenac sodium 1 % topical gel 2 g topical QID PRN joint pain 12/18/21 12/18/21 levothyroxine 75 mcg tablet 75 mcg PO QAM 12/18/21 12/18/21 lidocaine 5 % topical patch 1 patch topical DAILY 12/18/21 12/18/21 lisinopril 10 mg tablet 10 mg PO DAILY 12/18/21 12/18/21 Previous Rx's Medication Instructions Recorded simvastatin 20 mg tablet 20 mg PO HS #90 tabs 06/10/17 atorvastatin 20 mg tablet (Lipitor) 10 mg PO BEDTIME #30 tabs 12/21/21 metoclopramide HCl 10 mg tablet 10 mg PO QACHS #30 tabs 12/21/21 (Reglan) Allergies Allergy/AdvReac Type Severity Reaction Status Date / Time aspirin [ASPIRIN] AdvReac Mild NAUSEA Verified 12/18/21 09:28 Review of Systems <Nasima Stewart PA-C - Last Filed: 05/13/23 17:05> Review of Systems ROS Unobtainable: All systems reviewed & are unremarkable except as noted in HPI and below Constitutional Constitutional: Denies chills, Denies fatigue, Denies fever(s), Denies frequent falls, Denies lethargy and Denies weakness Eyes Eyes: Denies change in vision, Denies eye discharge, Denies irritation and Denies loss of vision ENT Ears, Nose, Mouth, and Throat: Denies change in voice, Denies dizziness, Denies neck pain, Denies sore throat and Denies throat swelling Cardiovascular Cardiovascular: Denies chest pain, Denies irregular heart rhythm, Denies lightheadedness, Denies palpitations, Denies dyspnea, Denies dyspnea on exertion and Denies orthopnea Respiratory Respiratory: Denies cough, Denies dyspnea, Denies dyspnea on exertion and Denies wheezing Gastrointestinal Gastrointestinal: Denies abdominal pain, Denies change in bowel habits, Denies diarrhea, Denies nausea and Denies vomiting Genitourinary Genitourinary: Denies hematuria, Denies flank pain, Denies urinary incontinence and Denies urinary urgency Musculoskeletal Musculoskeletal: Denies back pain, Denies muscle weakness, Denies neck pain, Denies numbness and Denies tingling Comments: Left knee pain Integumentary/Breasts Skin/Breast: Denies pruritus, Denies erythema, Denies rash and Denies wounds Neurologic Neurologic: Denies behavioral changes, Denies confusion, Denies dizziness, Denies frequent falls, Denies loss of vision, Denies numbness, Denies tingling and Denies weakness Psychiatric Psychiatric: Denies anxiety, Denies behavioral changes, Denies confusion, Denies depression, Denies homicidal ideation and Denies suicidal ideation Endocrine Endocrine: Denies fatigue, Denies flushing and Denies palpitations Hematologic/Lymphatic Hematologic/Lymphatic: Denies easy bruising Allergic/Immunologic Allergic/Immunologic: Denies urticaria, Denies throat swelling and Denies wheezing Patient History <Nasima Stewart PA-C - Last Filed: 05/13/23 17:05> Medical History Hyperlipidemia Hypertension Hypothyroidism Type 2 diabetes mellitus Surgical History History of bilateral knee replacement History of cataract removal with insertion of prosthetic lens Status post cholecystectomy Family History Brother High cholesterol Stroke Social History household members: caregiver Smoking Status: Never smoker Smoking Status: Never smoker alcohol intake frequency: 0-2 drinks per day Substance Use Type: does not use Exam <ZAIDA Arriaga Last Filed: 05/13/23 17:05> Narrative Exam Narrative: Const General:?cooperative, healthy appearing and comfortable [facility] Head:?normal to inspection Ears:?hearing grossly normal bilaterally Nose:?external nose normal Face and sinus:?normal facial exam and sinuses nontender Mouth:?oral mucosae normal Throat:?posterior oropharynx normal Eyes General:?appearance normal, both eyes and all related structures Neck Neck:?normal visual inspection and no lymphadenopathy noted Resp Effort & Inspection:?normal respiratory effort Auscultation:?clear to auscultation bilaterally Cardio Rate:?regular rate Rhythm:?regular rhythm Musculoskeletal There is some tenderness to palpation of the popliteal region of the left knee. No deformities, bruising. Strength and sensation is intact. There is full range of motion. Patient is neurovascularly intact. Neuro General:?patient alert, patient awake and patient oriented x3 Initial Vital Signs Initial Vital Signs: Vital Signs Temperature 98 F 05/07/23 13:38 Pulse Rate 77 05/07/23 13:38 Respiratory Rate 16 05/07/23 13:38 Blood Pressure 180/77 H 05/07/23 13:38 Pulse Oximetry 97 05/07/23 13:38 Oxygen Delivery Method Room Air 05/07/23 13:38 <DO Shanta Rome Last Filed: 05/25/23 22:24> Initial Vital Signs Initial Vital Signs: Vital Signs Temperature 98 F 05/07/23 13:38 Pulse Rate 77 05/07/23 13:38 Respiratory Rate 16 05/07/23 13:38 Blood Pressure 180/77 H 05/07/23 13:38 Pulse Oximetry 97 05/07/23 13:38 Oxygen Delivery Method Room Air 05/07/23 13:38 Course <ZAIDA Arriaga Last Filed: 05/13/23 17:05> Orders Ordered: ED Orders 05/07/23 13:45 XR knee LT 3V Stat Vital Signs Vital signs: Vital Signs - 8 hr 05/07/23 13:38 Temperature 98 F Pulse Rate 77 Respiratory Rate 16 Blood Pressure 180/77 H Pulse Oximetry 97 Oxygen Delivery Method Room Air <DO Shanta Rome Filed: 05/25/23 22:24> Orders Ordered: ED Orders 05/07/23 13:45 XR knee LT 3V Stat Vital Signs Vital signs: Vital Signs - 8 hr 05/07/23 13:38 Temperature 98 F Pulse Rate 77 Respiratory Rate 16 Blood Pressure 180/77 H Pulse Oximetry 97 Oxygen Delivery Method Room Air MDM - Extremity (Nontraumatic) <Nasima Stewart PA-C - Last Filed: 05/13/23 17:05> MDM Narrative Medical decision making narrative: 87-year-old female with past medical history hypothyroidism, diabetes, hyperlipidemia, diabetic retinopathy presents to the ED with pain and swelling behind the left knee. Concern for fracture/dislocation versus musculoskeletal sprain/strain. Obtained x-rays with no acute findings. Recommend supportive care with Tylenol, ibuprofen. Recommend follow-up with PCP. ED return precautions were discussed with patient. Patient verbalized understanding. Medical records reviewed: Yes Discharge Plan Departure Patient Disposition: Home Clinical Impression: Acute knee pain Instructions: DI for Knee Pain Activity Restrictions/Additional Instructions: You were evaluated in the ED today for knee pain. Your x-ray does not show any fractures or dislocations, the shows a small knee effusion which is likely due to a musculoskeletal sprain/strain. You may continue to take ibuprofen, Tylenol for your symptoms. Please follow-up with your PCP as soon as possible. Return to the ED if you have worsening symptoms, numbness, tingling, weakness. Prescriptions: No Action simvastatin 20 MG tablet 20 mg PO HS Qty: 90 3RF (DME) OneTouch Verio test strips Strip MISCELLANEOUS Patient Comments: USE 1 STRIP ONCE A DAY levothyroxine 75 mcg tablet 75 mcg PO QAM Patient Comments: TAKE 1 TABLET BY MOUTH EVERY DAY lisinopril 10 mg tablet 10 mg PO DAILY Patient Comments: TAKE 1 TABLET BY MOUTH EVERY DAY lidocaine 5 % Adhesive Patch,Medicated 1 patch TOPICAL DAILY Rx Instructions: leave on most painful area for up to 12 hrs diclofenac sodium 1 % Gel 2 g TOPICAL QID PRN (Reason: joint pain) Rx Instructions: apply to single elbow, wrist or hand; for hand includes palm/fingers/back of hand atorvastatin [Lipitor] 20 mg Tablet 10 mg PO BEDTIME Qty: 30 0RF metoclopramide HCl [Reglan] 10 mg tablet 10 mg PO QACHS Qty: 30 0RF Referrals: Malinda Valenzuela MD [Primary Care Provider] - Stand Alone Forms: Patient Portal/API <Genie Stevens DO - Last Filed: 05/25/23 22:24> Cosign ED Attending Cosignature Attestation: I was immediately available in the department for consultation. Documentation has been reviewed.
== END 2023-05-07 16:46 | disposition home or self-care (01) ==
PROVIDERS: Emergency Provider Student in an Organized Health Care Education/Training Program; PCP Family Medicine
DX: M25.562 Pain in left knee (principal); Z79.899 Other long term (current) drug therapy
CPT/HCPCS: 73562; 99281; 99283

== ENCOUNTER 2023-07-02 05:56 | Emergency (ER) | payer MEDICARE, MEDICAID, SELFPAY ==
[2021-12-18 18:39] VITALS: BMI 30.6
[2023-07-02] VITALS (33 sets, daily range): BP systolic 145–192; BP diastolic 65–123; PULSE 72–84; RESP 15–25; TEMP 36.2; O2SAT 92–100; BMI 39.4
--- NOTE | 2023-07-02 06:13 | DI.CT.S_ITS ---
PROCEDURE: CT FACIAL BONES WO CON INDICATIONS: fall TECHNIQUE: Noncontrast 2.5 mm thick axial images acquired from the mandible through the frontal sinuses, with coronal and sagittal reformatting. For radiation dose reduction, the following was used: automated exposure control, adjustment of mA and/or kV according to patient size. COMPARISON: [facility], CT, CT HEAD/BRAIN WO CON, 07/02/2023, 6:35. FINDINGS: Image quality: Patient motion artifact, making it difficult to evaluate the mandible. Bones and teeth: Orbital tolentino are intact. Sinus tolentino show no fracture or deformity. Nasal bone fracture. Visualized portions of the mandible demonstrate no fractures or subluxation. Zygomatic arches are intact. Pterygoid plates are intact. Visualized portions of the skull base and auditory canals are intact. Sinuses: Paranasal sinuses are aerated, without fluid levels, mucosal thickening, or mucoceles. Mastoid air cells are aerated. Soft tissues: No edema, masses, or fluid collections. No enlarged lymph nodes. No soft tissue lacerations or debris. Vascular: Visualized vascular structures appear normal in the absence of contrast. Bony vascular foramina and canals are intact. Imaged brain: Bilateral very thin temporal subdural hematomas without mass effect. IMPRESSION: 1. Nasal bone fracture. 2. No other facial fractures or mandibular fractures noted. 3. Evaluation of the mandible is quite suboptimal secondary to patient motion artifact. 4. Trace subdural hematomas, discussed on the CT head report from the same date. Comment: Final report is concordant with preliminary interpretation provided by [facility]. The Dictated by: Tarun Villarreal M.D. on 07/02/2023 at 7:48 Approved by: Tarun Villarreal M.D. on 07/02/2023 at 7:51
--- NOTE | 2023-07-02 06:13 | DI.CT.S_ITS ---
PROCEDURE: CT CERVICAL SPINE WO CON INDICATIONS: fall TECHNIQUE: Noncontrast 3 mm thick sections acquired from the skull base to the T4 level. Sagittal and coronal reformats were then constructed. For radiation dose reduction, the following was used: automated exposure control, adjustment of mA and/or kV according to patient size. COMPARISON: [facility], CT, CT CERVICAL SPINE WO CON, 12/18/2021, 9:59. FINDINGS: Image quality: Excellent. Bones: No fractures or dislocations. Visualized superior ribs are intact. Diffuse spondylitic change. Multilevel facet arthropathy. Multilevel posterior disc osteophyte complexes. Soft tissues: Prevertebral soft tissues are normal in thickness. No paravertebral hematomas. No apical pneumothoraces. Dilated, fluid-filled esophagus. IMPRESSION: 1. No acute cervical fracture or dislocation. 2. Cervical spondylosis. 3. Dilated, fluid-filled esophagus. Findings may potentially be related to significant gastroesophageal reflux versus distal esophageal obstruction. Recommend clinical correlation. Comment: Final report is concordant with preliminary interpretation provided by [facility]. Dictated by: Tarun Villarreal M.D. on 07/02/2023 at 7:42 Approved by: Tarun Villarreal M.D. on 07/02/2023 at 7:45
--- NOTE | 2023-07-02 06:13 | DI.RAD.S_ITS ---
PROCEDURE: XR ELBOW RT MIN 3V INDICATIONS: fall TECHNIQUE: 3 views of the elbow were acquired. COMPARISON: None. FINDINGS: Bones: Possible nondisplaced fracture of the medial humeral epicondyle. Soft tissues: No elbow joint effusion. No suspicious soft tissue calcifications. IMPRESSION: Possible nondisplaced fracture of the medial humeral epicondyle. Consider CT for confirmation. Agree with preliminary report. Dictated by: Rajinder Naranjo M.D. on 07/02/2023 at 8:06 Approved by: Rajinder Naranjo M.D. on 07/02/2023 at 8:07
--- NOTE | 2023-07-02 06:13 | DI.CT.S_ITS ---
PROCEDURE: CT HEAD/BRAIN WO CON INDICATIONS: fall TECHNIQUE: Noncontrast 4.5 mm thick angled axial sections acquired from the foramen magnum to the vertex, with coronal and sagittal reformats. For radiation dose reduction, the following was used: automated exposure control, adjustment of mA and/or kV according to patient size. COMPARISON: [facility], CT, CT HEAD/BRAIN WO CON, 12/18/2021, 9:59. FINDINGS: Image quality: Excellent. CSF spaces: Basal cisterns are patent. There are very small bilateral acute subdural hematomas, measuring 4 mm in thickness on the right and 3 mm in thickness on the left. No mass effect or shift. The ventricles are symmetric in size and shape. Brain: Bilateral thin acute subdural hematomas. No masses. There is cerebral volume loss for age, with resultant ventricular and sulcal prominence. There are periventricular and deep white matter chronic small vessel ischemic changes. 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 Old right thalamic lacunar infarct. There is intracranial internal carotid artery atherosclerosis. Skull and face: Calvarium and visualized facial bones appear intact, without suspicious lesions. Sinuses: Visualized sinuses and mastoids are clear. IMPRESSION: 1. Bilateral acute very thin subdural hematomas without mass effect. 2. Age-related volume loss, small vessel ischemic change, old lacunar infarctions. Comment: Final report is concordant with preliminary interpretation provided by [facility]. Initial interpretation was conveyed by phone to Dr. Chou on 07/02/2023 at 0721 hours Dictated by: Tarun Villarreal M.D. on 07/02/2023 at 7:45 Approved by: Tarun Villarreal M.D. on 07/02/2023 at 7:48
--- NOTE | 2023-07-02 06:13 | DI.RAD.S_ITS ---
PROCEDURE: XR CHEST 1V INDICATIONS: chest pain TECHNIQUE: One view of the chest was acquired. COMPARISON: [facility], CR, XR CHEST 1V, 12/18/2021, 10:04. FINDINGS: Surgical changes and devices: None. Lungs and pleura: Lungs are clear. No pleural effusions or pneumothorax. Mediastinum: Mediastinal contours appear normal. Heart size is enlarged. Bones and chest wall: No suspicious bony lesions. Overlying soft tissues appear unremarkable. IMPRESSION: Portable chest within normal limits for age. Agree with preliminary report. Dictated by: Rajinder Naranjo M.D. on 07/02/2023 at 7:58 Approved by: Rajinder Naranjo M.D. on 07/02/2023 at 8:06
--- NOTE | 2023-07-02 06:16 | ED.FALL ---
HPI - Fall <DO Shanta Tijerina Last Filed: 07/02/23 23:32> General Chief Complaint: Trauma Stated Complaint: fell and hit her nose and rt elbow Time Seen by Provider: 07/02/23 06:13 Source: patient and family Mode of arrival: Ambulatory History of Present Illness HPI Narrative: Patient is a 87-year-old male history of type 2 diabetes hypertension hypothyroid hyperlipidemia presents today after ground level fall. She was found by her daughter she was getting up to use the restroom with her walker when she tripped and fell hitting her face. She would a bloody nose outside the left side but has stopped now. She is complaining some right elbow pain but no other injuries. Denies any chest pain palpitations no shortness of breath no fever or chills. She does fall sometimes difficult to tell if this was a normal fall or abnormal fall. However she is at her baseline mental status. Related Data Home Medications Medication Instructions Recorded Confirmed blood sugar diagnostic (OneTouch 12/18/21 12/18/21 Verio test strips) diclofenac sodium 1 % topical gel 2 g topical QID PRN joint pain 12/18/21 12/18/21 levothyroxine 75 mcg tablet 75 mcg PO QAM 12/18/21 12/18/21 lidocaine 5 % topical patch 1 patch topical DAILY 12/18/21 12/18/21 lisinopril 10 mg tablet 10 mg PO DAILY 12/18/21 12/18/21 Previous Rx's Medication Instructions Recorded simvastatin 20 mg tablet 20 mg PO HS #90 tabs 06/10/17 atorvastatin 20 mg tablet (Lipitor) 10 mg (1/2 x 20 mg) PO BEDTIME #30 12/21/21 tabs metoclopramide HCl 10 mg tablet 10 mg PO QACHS #30 tabs 12/21/21 (Reglan) hydrocodone 5 mg-acetaminophen 325 1 tab PO Q8H PRN pain #7 tabs 07/02/23 mg tablet Allergies Allergy/AdvReac Type Severity Reaction Status Date / Time aspirin [ASPIRIN] AdvReac Mild NAUSEA Verified 12/18/21 09:28 Review of Systems <DO Shanta Tijerina Last Filed: 07/02/23 23:32> Review of Systems ROS Unobtainable: All systems reviewed & are unremarkable except as noted in HPI and below Patient History <DO Shanta Tijerina Last Filed: 07/02/23 23:32> Medical History Hyperlipidemia Hypothyroidism Hypertension Type 2 diabetes mellitus Surgical History History of bilateral knee replacement History of cataract removal with insertion of prosthetic lens Status post cholecystectomy Family History Brother High cholesterol Stroke Social History household members: none Smoking Status: Never smoker Smoking Status: Never smoker alcohol intake frequency: 0-2 drinks per day Substance Use Type: does not use Exam <Evelin Mattson DO - Last Filed: 07/02/23 23:32> Initial Vital Signs Initial Vital Signs: Vital Signs Temperature 97.2 F L 07/02/23 06:00 Pulse Rate 84 07/02/23 06:00 Respiratory Rate 20 07/02/23 06:00 Blood Pressure 192/81 H 07/02/23 06:00 Pulse Oximetry 97 07/02/23 06:00 Oxygen Delivery Method Room Air 07/02/23 06:00 GENERAL: Well-appearing 87-year-old female and in no acute distress. HEENT: Head atraumatic,EOMI, pupils reactive, face symmetric, left nares some mild blood but no active bleeding. She has a swollen right upper lip teeth in place. Swelling over bridge of nose without laceration CARDIOVASCULAR: Regular rate and rhythm without murmurs, rubs or gallops. RESPIRATORY: Breath sounds equal bilaterally, no wheezes rales or rhonchi. ABDOMEN: Soft, nontender. Normoactive bowel sounds all 4 quadrants. No guarding or rebound. EXTREMITIES: Normal range of motion, no clubbing or edema. Neurovascularly intact Right upper extremity contusion over right olecranon distal radial pulse intact NEUROLOGICAL: Alert and oriented x4.Normal gait and speech. Cranial nerves II through XII grossly intact. Ambulatory of strength equal bilaterally SKIN: Warm, dry, no laceration, no petechiae, no rashes or lesions. <Genie Chou MD - Last Filed: 07/02/23 16:22> Initial Vital Signs Initial Vital Signs: Vital Signs Temperature 97.2 F L 10/31/23 06:00 Pulse Rate 84 07/02/23 06:00 Respiratory Rate 20 07/02/23 06:00 Blood Pressure 192/81 H 07/02/23 06:00 Pulse Oximetry 97 07/02/23 06:00 Oxygen Delivery Method Room Air 07/02/23 06:00 Course <Evelin Mattson DO - Last Filed: 07/02/23 23:32> Orders Ordered: ED Orders 07/02/23 14:49 [place] [facility] [place] [employer] [place] 07/02/23 14:57 Consult to Physical Therapy Evaluate & Treat 07/02/23 16:05 Consult to Home Health Stat Discontinued Medications Acetaminophen (Acetaminophen 325 Mg Tablet) 975 mg PO NOW ONE Stop: 07/02/23 06:14 Last Admin: 07/02/23 06:18 Dose: 975 mg Documented By: Vital Signs Vital signs: Vital Signs - 8 hr 07/02/23 15:30 07/02/23 16:29 Pulse Rate 79 84 Respiratory Rate 19 Blood Pressure 174/80 H Pulse Oximetry 96 98 <Genie Chou MD - Last Filed: 07/02/23 16:22> Orders Ordered: ED Orders 07/02/23 14:49 [place] [facility] [place] 07/02/23 14:57 Consult to Physical Therapy Evaluate & Treat 07/02/23 16:05 Consult to Home Health Stat Discontinued Medications Acetaminophen (Acetaminophen 325 Mg Tablet) 975 mg PO NOW ONE Stop: 07/02/23 06:14 Last Admin: 07/02/23 06:18 Dose: 975 mg Documented By: Vital Signs Vital signs: Vital Signs - 8 hr 07/02/23 15:30 07/02/23 16:29 Pulse Rate 79 84 Respiratory Rate 19 Blood Pressure 174/80 H Pulse Oximetry 96 98 MDM - Fall <DO Shanta Tijerina Last Filed: 07/02/23 23:32> Lab Data 07/02/23 06:12 07/02/23 06:12 Labs: Lab Results 07/02/23 Range/Units 06:12 WBC 8.2 (4.5-11.0) X10^3/uL RBC 3.83 L (4.0-5.2) X10^6/uL Hgb 11.1 L (12.0-16.0) g/dL Hct 33.7 L (36-46) % MCV 88.1 (80-100) fL MCH 28.9 (26-34) PG MCHC 32.8 (30-36) % RDW 14.9 H (11.6-14.8) % Plt Count 344 (150-400) X10^3/uL Neut % (Auto) 64.3 (50-75) % Lymph % (Auto) 24.7 L (25-40) % Camp % (Auto) 5.9 (3-14) % Eos % (Auto) 4.1 H (2-4) % Baso % (Auto) 1.0 (0-2) % Neut # (Auto) 5300 (8385-6244) /uL Lymph # (Auto) 2000 (3964-9540) /uL Camp # (Auto) 500 (0-900) /uL Eos # (Auto) 300 (0-450) /uL Baso # (Auto) 100 (0-100) /uL PT 11.4 (10.1-12.7) SECONDS INR 1.0 (0.9-1.3) APTT 31 (26-36) SECONDS Sodium 137 (137-145) mmol/L Potassium 4.7 (3.4-5.1) mmol/L Chloride 103 (98-107) mmol/L Carbon Dioxide 24 (22-32) mmol/L BUN 23 H (7-17) mg/dL Creatinine 0.45 L (0.52-1.04) mg/dL Estimated GFR > 60 (>60) mL/min BUN/Creatinine Ratio 51.1 H (6-22) Glucose 168 H (80-110) mg/dL Calcium 9.9 (8.4-10.2) mg/dL Total Bilirubin 0.4 (0.2-1.3) mg/dL AST 26 (14-36) IU/L ALT 17 (<35) IU/L Alkaline Phosphatase 43 (38-126) U/L Total Creatine Kinase 48 (30-135) U/L Troponin I < 0.012 (0.01-0.034) ng/mL Total Protein 7.4 (6.3-8.2) g/dL Albumin 4.1 (3.5-5.0) g/dL Globulin 3.3 (1.7-4.1) g/dL Albumin/Globulin Ratio 1.2 (1.0-2.8) Lipase 77 (23-300) U/L Point of Care Testing Glucose POC 138 Urine Dip Bedside Urine Glucose Negative Bedside Urine Bilirubin - Negative Bedside Urine Ketone - Negative Urine Specific [place] 1.005 Bedside Urine Occult Blood - Negative Bedside Urine pH 6.0 Bedside Urine Protein - Negative Bedside Urine Urobilinogen - Negative Bedside Urine Nitrite - Negative Bedside Urine Leukocytes - Negative Esterase ECG Data Interpretation: Normal sinus rhythm rate 77 HI interval 152 QRS [address] changes T-wave inversion noted in lead 3 only low voltage similar to prior MDM Narrative Medical decision making narrative: Patient 70-year-old female presents today after ground level fall. She complains of nose pain and elbow pain. She is elderly 87 years old multiple comorbidities. Blood work and imaging done. Patient signed out to Dr. Chou <Genie Chou MD - Last Filed: 07/02/23 16:22> Lab Data Labs: Lab Results 07/02/23 Range/Units 06:12 WBC 8.2 (4.5-11.0) X10^3/uL RBC 3.83 L (4.0-5.2) X10^6/uL Hgb 11.1 L (12.0-16.0) g/dL Hct 33.7 L (36-46) % MCV 88.1 (80-100) fL MCH 28.9 (26-34) PG MCHC 32.8 (30-36) % RDW 14.9 H (11.6-14.8) % Plt Count 344 (150-400) X10^3/uL Neut % (Auto) 64.3 (50-75) % Lymph % (Auto) 24.7 L (25-40) % Camp % (Auto) 5.9 (3-14) % Eos % (Auto) 4.1 H (2-4) % Baso % (Auto) 1.0 (0-2) % Neut # (Auto) 5300 (7627-1561) /uL Lymph # (Auto) 2000 (1493-0037) /uL Camp # (Auto) 500 (0-900) /uL Eos # (Auto) 300 (0-450) /uL Baso # (Auto) 100 (0-100) /uL PT 11.4 (10.1-12.7) SECONDS INR 1.0 (0.9-1.3) APTT 31 (26-36) SECONDS Sodium 137 (137-145) mmol/L Potassium 4.7 (3.4-5.1) mmol/L Chloride 103 (98-107) mmol/L Carbon Dioxide 24 (22-32) mmol/L BUN 23 H (7-17) mg/dL Creatinine 0.45 L (0.52-1.04) mg/dL Estimated GFR > 60 (>60) mL/min BUN/Creatinine Ratio 51.1 H (6-22) Glucose 168 H (80-110) mg/dL Calcium 9.9 (8.4-10.2) mg/dL Total Bilirubin 0.4 (0.2-1.3) mg/dL AST 26 (14-36) IU/L ALT 17 (<35) IU/L Alkaline Phosphatase 43 (38-126) U/L Total Creatine Kinase 48 (30-135) U/L Troponin I < 0.012 (0.01-0.034) ng/mL Total Protein 7.4 (6.3-8.2) g/dL Albumin 4.1 (3.5-5.0) g/dL Globulin 3.3 (1.7-4.1) g/dL Albumin/Globulin Ratio 1.2 (1.0-2.8) Lipase 77 (23-300) U/L Point of Care Testing Glucose POC 138 Urine Dip Bedside Urine Glucose Negative Bedside Urine Bilirubin - Negative Bedside Urine Ketone - Negative Urine Specific [place] 1.005 Bedside Urine Occult Blood - Negative Bedside Urine pH 6.0 Bedside Urine Protein - Negative Bedside Urine Urobilinogen - Negative Bedside Urine Nitrite - Negative Bedside Urine Leukocytes - Negative Esterase MDM Narrative Medical decision making narrative: Patient 70-year-old female presents today after ground level fall. She complains of nose pain and elbow pain. She is elderly 87 years old multiple comorbidities. Blood work and imaging done. Patient signed out to Dr. Chou [id number]: I received a call from Radiology, patient has trace bilateral subdural hematomas without midline shift. Patient also found to have bilateral nasal bone fracture. No nasal septal hematoma. X-ray imaging pending. Patient reassessed, she is sitting upright in a chair, no acute distress. I confirmed with daughter that patient does not take any blood thinning medications including aspirin or Plavix. Stat consult placed to [facility] neurosurgery. Additionally - question if acute fx of distal humerus with recommended CT. CT upper extremity ordered. Neurosurgery reviewed imaging. Since subdural hematomas are quite small and since patient is not on any blood thinners and is at her neurologic baseline recommended repeat CT at 4 hours and to call back with the f/u CT results. Repeat noncontrast head CT with no change.CT upper extremity negative for acute fracture. Patient remains at neuro baseline. Ambulatory with PT, who recommended home health care. Social work sent referral. Pain mediations sent to pharmacy. Family notified of nasal bone fractures as well as neurosurgical recommendations. Patient discharged home in stable condition. All questions answered at time of discharge. Critical Care Time <Genie Chou MD - Last Filed: 07/02/23 16:22> Critical Care Time Critical Care Time: Yes Total Critical Care Time: 69 Attestation: subdural hematoma, nasal bone fractures, frequent reassessments, discussion and consult with neurosurgery Discharge Plan Departure Patient Disposition: Home Clinical Impression: Subdural hematoma, Fracture of nasal bone, Contusion of upper arm, right, Fall Instructions: Exercises to Help Prevent Falls, How to Prevent Falls Activity Restrictions/Additional Instructions: BE CAREFUL WITH THE PAIN MEDICATION. IT MAY CAUSE SLEEPINESS AND INCREASE THE RISK OF FALLING TENGA CUIDADO CON LOS MEDICAMENTOS PARA EL DOLOR. PUEDE PROVOCAR SOMNOLENCIA Y AUMENTAR EL R[place] DE [place] Prescriptions: New hydrocodone-acetaminophen 5-325 mg tablet 1 tab PO Q8H PRN (Reason: pain) Qty: 7 0RF No Action simvastatin 20 MG tablet 20 mg PO HS Qty: 90 3RF (DME) OneTouch Verio test strips Strip MISCELLANEOUS Patient Comments: USE 1 STRIP ONCE A DAY levothyroxine 75 mcg tablet 75 mcg PO QAM Patient Comments: TAKE 1 TABLET BY MOUTH EVERY DAY lisinopril 10 mg tablet 10 mg PO DAILY Patient Comments: TAKE 1 TABLET BY MOUTH EVERY DAY lidocaine 5 % Adhesive Patch,Medicated 1 patch TOPICAL DAILY Rx Instructions: leave on most painful area for up to 12 hrs diclofenac sodium 1 % Gel 2 g TOPICAL QID PRN (Reason: joint pain) Rx Instructions: apply to single elbow, wrist or hand; for hand includes palm/fingers/back of hand atorvastatin [Lipitor] 20 mg Tablet 10 mg PO BEDTIME Qty: 30 0RF metoclopramide HCl [Reglan] 10 mg tablet 10 mg PO QACHS Qty: 30 0RF Referrals: Malinda Valenzuela MD [Primary Care Provider] - Stand Alone Forms: Patient Portal/API
[2023-07-02] MEDS: ACETAMINOPHEN 325 MG TABLET 975 MG PO (06:18)
[2023-07-02 06:28] LABS: Add Manual Diff / Slide Review NO; Basophils Absolute Auto 100 /uL (0-100); Eosinophils Absolute Auto 300 /uL (0-450); Eosinophils Percent Auto 4.1 % (2-4); Hematocrit 33.7 % (36-46); Hemoglobin 11.1 g/dL (12.0-16.0); Lymphocytes Absolute Auto 2000 /uL (1100-4500); Lymphocytes Percent Auto 24.7 % (25-40); Mean Corpuscular HGB Conc 32.8 % (30-36); Mean Corpuscular Hemoglobin 28.9 PG (26-34); Mean Corpuscular Volume 88.1 fL (80-100); Monocytes Absolute Auto 500 /uL (0-900); Monocytes Percent Auto 5.9 % (3-14); Neutrophils Absolute Auto 5300 /uL (1500-7000); Neutrophils Percent Auto 64.3 % (50-75); Platelet Count 344 X10^3/uL (150-400); Red Blood Cell Count 3.83 X10^6/uL (4.0-5.2); Red Cell Distribution Width 14.9 % (11.6-14.8); White Blood Cell Count 8.2 X10^3/uL (4.5-11.0)
[2023-07-02 06:34] LABS: Alanine Aminotransferase 17 IU/L (<35); Albumin 4.1 g/dL (3.5-5.0); Albumin Globulin Ratio 1.2 (1.0-2.8); Alkaline Phosphatase 43 U/L (38-126); Aspartate Aminotransferase 26 IU/L (14-36); BUN Creatinine Ratio 51.1 (6-22); Bilirubin Total 0.4 mg/dL (0.2-1.3); Blood Urea Nitrogen 23 mg/dL (7-17); Calcium 9.9 mg/dL (8.4-10.2); Carbon Dioxide 24 mmol/L (22-32); Chloride 103 mmol/L (98-107); Creatine Kinase 48 U/L (30-135); Estimated Glomerular Filt Rate > 60 mL/min (>60); Globulin 3.3 g/dL (1.7-4.1); Glucose 168 mg/dL (80-110); Lipase 77 U/L (23-300); Potassium 4.7 mmol/L (3.4-5.1); Sodium 137 mmol/L (137-145); Total Protein 7.4 g/dL (6.3-8.2)
[2023-07-02 06:46] LABS: Troponin I < 0.012 ng/mL (0.01-0.034)
[2023-07-02 07:22] LABS: HEMOLYSIS 86 (0-50)
--- NOTE | 2023-07-02 07:30 | PC.NURSE ---
Pt assessment: Pt is up sitting at bedside, conversing well and clearly with daughter. Reports no cognitive issues just slight R elbow pain.
[2023-07-02 07:45] LABS: Prothrombin Time 11.4 SECONDS (10.1-12.7)
[2023-07-02 07:54] LABS: PTT Partial Thromboplastin Tim 31 SECONDS (26-36)
--- NOTE | 2023-07-02 08:18 | DI.CT.S_ITS ---
PROCEDURE: CT UE RT WO CON INDICATIONS: possible humerus fx seen on XR TECHNIQUE: Noncontrast 3 mm axial sections acquired of the right upper arm, with coronal and sagittal reformats. COMPARISON: [facility], CR, XR ELBOW RT MIN 3V, 07/02/2023, 6:39. FINDINGS: Image quality: Excellent. Bones: Moderate acromioclavicular joint osteoarthritic changes are seen with joint space narrowing, subchondral sclerosis and downward osteophyte formation depressing the musculotendinous junction of supraspinatus. Moderate glenohumeral joint osteoarthritic changes also seen with joint space narrowing and inferior marginal osteophyte formation. No acute right shoulder fracture or dislocation. No suspicious bony lesions. Examination of mid to distal humeral shaft shows no evidence of fracture or dislocation. Osteoarthritic changes are noted throughout elbow joints. Small corticated calcification adjacent to lateral epicondyle near common extensor tendon insertion is noted concerning for old avulsion injury. No acute fracture or dislocation is seen in right elbow. No suspicious bony lesions. The visualized right ribs are intact. Soft tissues: Amorphous calcifications are seen scattered within glenohumeral joint space and adjacent to posterior aspect of humeral head. Similar small calcifications also noted adjacent to anterior and lateral aspect of lateral epicondyle and along anterior aspect of proximal radial shaft. No full-thickness rotator cuff tendon rupture. No discrete soft tissue mass or drainable fluid collection. No large soft tissue hematoma is seen. Scattered atelectasis in visualized bilateral lung ortiz are seen. No pleural effusion or pneumothorax. Heart size is enlarged, no pericardial effusion. Moderate atherosclerotic calcifications are seen in coronary vessels. No mediastinal or hilar lymphadenopathy by size criteria. IMPRESSION: 1. No acute right humeral fracture or dislocation. Moderate right shoulder joint osteoarthritis and [id number] right elbow joint osteoarthritis. No suspicious bony lesions. 2. Suggestion of old avulsion injury involving lateral epicondyle near common extensor tendon origin. Amorphous calcifications are noted in right shoulder and elbow soft tissues as described above most likely represent heterotopic calcifications secondary to remote soft tissue injury versus small intra-articular loose bodies. 3. No full-thickness rotator cuff tendon rupture. No large soft tissue hematoma or mass. No drainable fluid collection. Dictated by: Jerome Cardenas M.D. on 07/02/2023 at 9:31 Approved by: Jerome Cardenas M.D. on 07/02/2023 at 9:41
--- NOTE | 2023-07-02 09:20 | PC.NURSE ---
GUTTER INSTALLER NOTE: purewick placed; pt education given.
--- NOTE | 2023-07-02 10:15 | DI.CT.S_ITS ---
PROCEDURE: CT HEAD/BRAIN WO CON INDICATIONS: REPEAT CT - SUBDURAL HEMATOMA TECHNIQUE: Noncontrast 4.5 mm thick angled axial sections acquired from the foramen magnum to the vertex, with coronal and sagittal reformats. For radiation dose reduction, the following was used: automated exposure control, adjustment of mA and/or kV according to patient size. COMPARISON: [facility], CT, CT HEAD/BRAIN WO CON, 07/02/2023, 6:35. FINDINGS: Image quality: Excellent. CSF spaces: Basal cisterns are patent. Redemonstration of trace bilateral acute subdural hematomas measuring up to 4 mm on the right and 3 mm on the left, unchanged from prior. No mass effect or midline shift. The ventricles are symmetric in size and shape. Brain: No intracranial bleeds or masses. There is cerebral volume loss for age, with resultant ventricular and sulcal prominence. There are periventricular and deep white matter chronic small vessel ischemic changes. 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 Chronic right thalamus lacunar infarct. There is intracranial internal carotid artery atherosclerosis. Skull and face: Calvarium and visualized facial bones appear intact, without suspicious lesions. Bilateral lens replacement. Sinuses: Visualized sinuses and mastoids are clear. IMPRESSION: Compared to prior CT obtained at 6:35 a.m., stable trace bilateral subdural hematomas without mass effect or midline shift. Approved by: Bernie Johnson M.D. on 07/02/2023 at 11:53
--- NOTE | 2023-07-02 10:42 | PC.NURSE ---
CABLE MOCK UP ASSEMBLER NOTE: pt couldn't urinate with purewick; provided commode and pt went to pee twice
--- NOTE | 2023-07-02 15:07 | PC.NURSE ---
2 person standby assist to bedside commode and back to bed. daughter helped with RN.
--- NOTE | 2023-07-02 16:32 | PT.IIE ---
Surgical History (Last Reviewed 07/02/23 @ 06:22 by Evelin Mattson DO) History of bilateral knee replacement History of cataract removal with insertion of prosthetic lens Status post cholecystectomy Medical History (Last Reviewed 07/02/23 @ 06:22 by Evelin Mattson DO) Hyperlipidemia Hypertension Hypothyroidism Type 2 diabetes mellitus Physical Therapy Inpatient Evaluation/Re-Eval M1 PT/OT-IP Prior Functional Status Start: 07/02/23 16:08 Freq: Status: Active Protocol: Document 07/02/23 16:09 AB (Rec: 07/02/23 16:32 AB [id number]) Medical Review Prior Functional Status Medical History Reviewed Yes Communication Pt is a [place] Islander speaking and is able to communicate all needs. Mobility and Gait Pt's daughters reports she ambulates Preet with 4WW for household distances. Activities of Daily Living and IADL's Pt requires assistance from her daughter (caregiver) for ADLs and IADLs. Social History Household Members none Living Arrangements [facility] Facility Number of Floors (Floors) One Floor Number of Stairs To Enter/Railing? no MARIANA Home Environment Standard Height Toilet,Walk in Shower Home Equipment Four Wheel Walker,Straight Cane,Bedside Commode,Shower Seat with Backrest,Hand Held Shower,Grab Bars Near Toilet, Grab Bars In Shower Additional Social History Comment Pt's daughter reports she is her caregiver. She comes in the mornings to assist with getting dressed and breakfast, then returns later in the day to for other meals and to assist to bed. Her daughter also provides the pt with her medications. The pt is alone for a few hours during the day time and at night. M2 PT-IP Current Condition Start: 07/02/23 16:08 Freq: Status: Active Protocol: Document 07/02/23 16:09 AB (Rec: 07/02/23 16:32 AB [id number]) Physical Therapy Current Condition Current Condition Evaluation Date 07/02/23 Treatment Diagnosis s/p ground fall Onset Date 07/02/23 M3 PT-IP Subjective Start: 07/02/23 16:08 Freq: Status: Active Protocol: Document 07/02/23 16:09 AB (Rec: 07/02/23 16:32 AB [id number]) Subjective Physical Therapy Visit Type Type Initial Evaluation Visit Start Time 15:35 Visit Stop Time 16:05 Total Visit Minutes 30 Physical Therapy Visit Comments Patient Comments Pt presents semi supine in bed with daughters at bedside. She is agreeable to PT evaluation, and is comfortable without an deaf interpreter as PT speaks [place] Islander. Therapy Pain Assessment Pain When Pain Assessed During Mobility Pain Present Pain Present Pain Reported Location nose,elbow Scale Used unable to quantify Pain Management Techniques Distraction M4 PT-IP Mobility and Gait Start: 07/02/23 16:08 Freq: Status: Active Protocol: Document 07/02/23 16:09 AB (Rec: 07/02/23 16:32 AB [id number]) PT-Bed Mobility Assessment Rolling Level of Assist Standby Assistance Supine to Sit Supine to Sit Moderate Assistance,1 Person Assistance Sit to Supine Sit to Supine Moderate Assistance,1 Person Assistance Scooting Scooting to Edge of Bed Contact Guard Assistance PT-Transfer Assessment Sit to and From Stand Sit to and from Stand Contact Guard Assistance,1 Person Assistance,Use of Upper Extremities Equipment Transfer Assistive Device Gait Belt,Front Wheeled Walker Transfers Transfer Destination Bed,Wheelchair,Bedside Commode Transfer Technique Stand Step Pivot Transfer Ability Level of Assist Contact Guard Assistance Comments Mobility Comments The pt required modA to perform bed mobility due to weakness and because the bed is too high for her stature. She was able to perform STS with CGA. She then ambulated as below. Upon returning to room, pt requested to sit rather than return to bed. She sat in commode as a chair, as other chairs are too tall for her. A w/c was brought in for her to use instead, and she is able to transfer to w/c with SBA/CGA. Her daughter ( caregiver) reports the pt's current level of function is her baseline. At end of session, the pt was left sitting in chair with all needs met and daughter in room . CW was informed of findings. Gait Assessment Gait Gait Assistance Required: Contact Guard Assist Distance (Feet) 100 Assistive Devices Assistive Device Gait Belt,Front Wheeled Walker Gait Deviations General Gait Pattern Decreased Stride Length, Decreased Feet Clearance Factors Limiting Gait Function Factors Limiting Gait Function Decreased Activity Tolerance, Decreased Strength Comments Gait Comments The pt demonstrates slow andrea and and decrease stride length when ambulating with FWW and CGA. She does not have any instances of LOB. Based on her history of frequent falls, the a FWW may be safer to use for mobility than a 4WW, which was discussed with the pt and her caregiver/daughter. Stair Climbing Assessment Comments Stair Climbing Comments Not assessed PT-Balance Assessment Sitting Balance and Reactions Static Sitting Balance Ability Good Dynamic Sitting Balance Ability Fair Standing Balance and Reactions Static Standing Balance Ability Fair Dynamic Standing Balance Ability Fair Device Used FWW M5 PT-IP Objective Assessments Start: 07/02/23 16:08 Freq: Status: Active Protocol: Document 07/02/23 16:09 AB (Rec: 07/02/23 16:32 AB [id number]) Orientation Orientation/Cognition Level of Alertness Alert Orientation Name,Situation Language Function Ability No Deficits Noted,Cypriot as Second Language Safety Awareness Understands Safety Issues Memory Description Short Term Impaired Comments Daughters report she has some memory deficits. Gross Range of Motion Lower Extremity ROM Assessment Within Functional Limits Strength Lower Extremity Strength Assessment Within Functional Limits M6 PT-IP Treatment Start: 07/02/23 16:08 Freq: Status: Active Protocol: Document 07/02/23 16:09 AB (Rec: 07/02/23 16:32 AB [id number]) Physical Therapy Treatment Education Education Provided Safety Brace Education Patient,Caregiver M7 PT-IP Assessment and Plan Start: 07/02/23 16:08 Freq: Status: Active Protocol: Document 07/02/23 16:09 AB (Rec: 07/02/23 16:32 AB [id number]) PT Summary Assessment and Plan Potential Rehabilitation Potential Good Status of Condition at Evaluation Stable Summary Impairments Pain,ROM,Strength,Balance, Cognition,Bed Mobility, Transfers,Gait,Activity Tolerance Assessment Summary Cee Stockton is an 87 year old female patient who is s/p ground level fall on 07/02/23. PT was consulted for discharge recommendations. The pt currently requires modA for bed mobility, but is CGA for all other functional mobility with use of FWW for STS, transfers and ambulation. The pt was able to ambulate 100ft without loss of balance. Her daughter reports this level of function is baseline for the pt. Based on her current level of function, PT recommends discharge to home with 24/7 assist due to frequent falls, along with home health PT to improve strength and balance deficits. The pt would benefit from continued skilled PT during her hospitalization, however is likely to be discharged today per CW. Goals Bed Mobility Goal Independent Transfer Goal Independent,Front Wheeled Walker Gait Goal Independent,Front Wheel Walker Gait Distance 50 Other Goals Pt to ambulated 100ft with FWW Preet to show improving level of function and endurance. Days to Meet Goals 10 Frequency of Treatment Frequency Of Treatment Once a Day Treatment Plan Physical Therapy Treatment Plan Bed Mobility Training,Transfer Training,Gait Training, Therapeutic Exercise,Balance Retraining,Post Op Education, Discharge Planning,Hot or Cold Pack,Neuromuscular Re-ed, Coordination Retraining,Manual Therapy Precautions Other Precautions Fall risk Recommendations To Nursing Amount of Assist Needed 1 Person Assist Discharge Recommendations PT Discharge Recommendations Home with 25/03 Assist Available,Home Health Transportation Needs at Discharge Private Vehicle,Wheelchair/ Cabulance
--- NOTE | 2023-07-02 17:08 | CM.SWNOTE ---
ED PRINCIPAL EXAMINER Assessment Note PRINCIPAL EXAMINER receives consult due to concern for patient's recent GLF, patient has been dx with fracture of nasal bone and subdural hematoma due to recent GLF. Patient is 87 y/o female who presents to ED with family after recent GLF. Patient is primarily kinyarwanda speaking. Patient has caregiver 6-7 days a week who assists patient with ADLs and airplane woodworker. Patient uses 4WW at baseline. It is reported that patient has a cane, commode, shower seat, hand held shower and grab bars at home. Patient's daughter is one of patient's caregivers. Patient has local family support. PT evaluates patient and recommends 24/7 assist and HH for patient. Per ED provider patient is medically clear for d/c PRINCIPAL EXAMINER reviews patient's EMR and patient has hx of [facility] rehab in December 2021, afterwards patient was referred for [facility]. PRINCIPAL EXAMINER discusses HH with patient's daughter/caregiver and she endorses preference for [facility]. PRINCIPAL EXAMINER calls [facility] and leaves VM regarding referral. PRINCIPAL EXAMINER faxes order, F2F, clinicals for [facility] referral for PT and OT. PRINCIPAL EXAMINER provides daughter/caregiver with [facility] brochure. Plan: patient d/c to home upon medical clearance with daughter/caregiver, [facility] referral in place to f/u with patient for PT and OT. DAVY Chris
== END 2023-07-02 16:22 | disposition home or self-care (01) ==
PROVIDERS: Emergency Medicine; Emergency Provider Emergency Medicine; PCP Family Medicine
DX: S06.5X0A Traumatic subdural hemorrhage without loss of consciousness, initial encounter (principal); S02.2XXA Fracture of nasal bones, initial encounter for closed fracture; S40.021A Contusion of right upper arm, initial encounter; Z79.899 Other long term (current) drug therapy; W01.0XXA Fall on same level from slipping, tripping and stumbling without subsequent striking against object, initial encounter
CPT/HCPCS: 36415; 70450; 70486; 71045; 72125; 73080; 73200; 80053; 81003; 82550; 82962; 83690; 84484; 85025; 85610; 85730; 93005; 97161; 99284; 99291

== ENCOUNTER 2023-07-19 16:27 | Emergency (ER) | payer MEDICARE, MEDICAID, SELFPAY ==
[2021-12-18 18:39] VITALS: BMI 30.6
[2023-07-19] VITALS (50 sets, daily range): BP systolic 101–193; BP diastolic 68–126; PULSE 74–93; RESP 16–39; TEMP 36.8; O2SAT 83–98
--- NOTE | 2023-07-19 16:31 | DI.CT.S_ITS ---
PROCEDURE: CT HEAD/BRAIN WO CON INDICATIONS: known subdural now with N/V TECHNIQUE: Noncontrast 4.5 mm thick angled axial sections acquired from the foramen magnum to the vertex, with coronal and sagittal reformats. For radiation dose reduction, the following was used: automated exposure control, adjustment of mA and/or kV according to patient size. COMPARISON: [facility], CT, CT HEAD/BRAIN WO CON, 07/02/2023, 11:05. FINDINGS: Image quality: Adequate. Motion artifact partially degrades quality of the exam and limits evaluation of the middle cranial fossa. CSF spaces: Basal cisterns are patent. Previously seen trace bilateral subdural hematomas CT 07/02/2023 are not definitively seen on current exam. Ventricles are normal in size and shape. Brain: No midline shift. No intracranial masses or hemorrhage. Ruby-white matter interface is normal. Skull and face: Calvarium and visualized facial bones are intact, without suspicious lesions. Sinuses: Visualized sinuses and mastoids are clear. IMPRESSION: No acute intracranial abnormality. Exam is mildly degraded by motion artifact. Previously visualized trace bilateral subdural hematomas are not definitively seen on current exam. Dictated by: Bernie Johnson M.D. on 07/19/2023 at 17:01 Approved by: Bernie Johnson M.D. on 07/19/2023 at 17:14
[2023-07-19 17:53] LABS: Add Manual Diff / Slide Review NO; Basophils Absolute Auto 100 /uL (0-100); Basophils Percent Auto 0.7 % (0-2); Eosinophils Absolute Auto 100 /uL (0-450); Eosinophils Percent Auto 1.3 % (2-4); Hematocrit 33.5 % (36-46); Lymphocytes Absolute Auto 1700 /uL (1100-4500); Lymphocytes Percent Auto 19.6 % (25-40); Mean Corpuscular Hemoglobin 28.9 PG (26-34); Mean Corpuscular Volume 87.5 fL (80-100); Monocytes Absolute Auto 400 /uL (0-900); Neutrophils Absolute Auto 6500 /uL (1500-7000); Neutrophils Percent Auto 73.4 % (50-75); Platelet Count 346 X10^3/uL (150-400); Red Blood Cell Count 3.82 X10^6/uL (4.0-5.2); Red Cell Distribution Width 15.2 % (11.6-14.8); White Blood Cell Count 8.8 X10^3/uL (4.5-11.0)
[2023-07-19] MEDS: SODIUM CHLORIDE 0.9% 1,000 ML 500 ML IV (17:54)
[2023-07-19] MEDS: ONDANSETRON 4 MG/2 ML INJ IV (17:54)
[2023-07-19 17:58] LABS: Alanine Aminotransferase 16 IU/L (<35); Albumin 4.3 g/dL (3.5-5.0); Albumin Globulin Ratio 1.4 (1.0-2.8); Alkaline Phosphatase 57 U/L (38-126); Aspartate Aminotransferase 26 IU/L (14-36); BUN Creatinine Ratio 53.3 (6-22); Bilirubin Total 0.6 mg/dL (0.2-1.3); Blood Urea Nitrogen 24 mg/dL (7-17); Calcium 10.6 mg/dL (8.4-10.2); Carbon Dioxide 30 mmol/L (22-32); Chloride 100 mmol/L (98-107); Creatine Kinase 32 U/L (30-135); Estimated Glomerular Filt Rate > 60 mL/min (>60); Globulin 3.1 g/dL (1.7-4.1); Glucose 181 mg/dL (80-110); HEMOLYSIS 31 (0-50); Lipase 43 U/L (23-300); Potassium 4.2 mmol/L (3.4-5.1); Sodium 138 mmol/L (137-145); Total Protein 7.4 g/dL (6.3-8.2)
[2023-07-19 18:10] LABS: Troponin I < 0.012 ng/mL (0.01-0.034)
--- NOTE | 2023-07-19 18:35 | ED_ITS ---
HPI - Nausea/Vomiting/Diarrhea General Chief complaint: Nausea/Vomiting/Diarrhea Stated complaint: n/v/d 2 days. Time Seen by Provider: 07/19/23 16:31 Source: EMS Mode of arrival: EMS History of Present Illness HPI Narrative: 88-year-old woman comes to the ED today because of weakness and dizziness when she stands. Two weeks ago she had a fall and broke her nose and had a small degree of subdural hematoma but has been home now for the past 2 weeks doing quite well. The patient herself says that she feels dizzy and lightheaded when she standing but otherwise feels reasonably well. No nausea or vomiting. No diarrhea. No fever. No cough no shortness of breath though a visiting health aide to her home today told the daughter that she looked like she was short of breath. Patient herself denies this. She denies chest pain no new injuries or falls. Related Data Home Medications Medication Instructions Recorded Confirmed blood sugar diagnostic (OneTouch 12/18/21 12/18/21 Verio test strips) diclofenac sodium 1 % topical gel 2 g topical QID PRN joint pain 12/18/21 12/18/21 levothyroxine 75 mcg tablet 75 mcg PO QAM 12/18/21 12/18/21 lidocaine 5 % topical patch 1 patch topical DAILY 12/18/21 12/18/21 lisinopril 10 mg tablet 10 mg PO DAILY 12/18/21 12/18/21 Previous Rx's Medication Instructions Recorded simvastatin 20 mg tablet 20 mg PO HS #90 tabs 06/10/17 atorvastatin 20 mg tablet (Lipitor) 10 mg (1/2 x 20 mg) PO BEDTIME #30 12/21/21 tabs metoclopramide HCl 10 mg tablet 10 mg PO QACHS #30 tabs 12/21/21 (Reglan) hydrocodone 5 mg-acetaminophen 325 1 tab PO Q8H PRN pain #7 tabs 07/02/23 mg tablet meclizine 25 mg tablet 25 mg PO QID PRN dizziness #20 tabs 07/19/23 Allergies Allergy/AdvReac Type Severity Reaction Status Date / Time aspirin [ASPIRIN] AdvReac Mild NAUSEA Verified 12/18/21 09:28 Patient History Medical History Hyperlipidemia Hypothyroidism Hypertension Type 2 diabetes mellitus Surgical History History of bilateral knee replacement History of cataract removal with insertion of prosthetic lens Status post cholecystectomy Family History Brother High cholesterol Stroke Social History household members: none Smoking Status: Never smoker Smoking Status: Never smoker alcohol intake frequency: holidays/special occasions only Substance Use Type: does not use Exam Narrative Exam Narrative: GENERAL: Alert, cooperative and in no distress. HEAD: Atraumatic. Normocephalic. EYES: Sclera are clear without icterus. Extraocular movements are full. ENT: No rhinorrhea. Oropharynx is moist. Mouth exam is benign. NECK: Supple. Full range of motion. CARDIOVASCULAR: Normal rate and rhythm without murmur gallop or rub. RESPIRATORY: Clear to auscultation. Breath sounds equal bilaterally. No wheezes, rales, or rhonchi. GASTROINTESTINAL: Abdomen soft, non-tender, nondistended. EXTREMITIES: No edema, full range of motion. No obvious trauma. BACK: Normal inspection, no CVA tenderness. NEURO: Nonfocal examination, normal speech, normal strength in upper and lower extremities. Cranial nerves 2-12 are examined and normal. Coordination in upper extremities is normal. SKIN: No rash or erythema of visible areas PSYCH: Normally oriented. Normal range of affect. Appropriate behavior Initial Vital Signs Initial Vital Signs: Vital Signs Temperature 98.2 F 07/19/23 16:32 Pulse Rate 93 H 07/19/23 16:32 Respiratory Rate 16 07/19/23 16:32 Blood Pressure 128/68 07/19/23 16:32 Pulse Oximetry 98 07/19/23 16:32 Oxygen Delivery Method Room Air 07/19/23 16:32 Course Orders Ordered: ED Orders 07/19/23 16:31 CT head/brain wo con Stat 07/19/23 17:50 Complete Blood Count AUTO DIFF Stat Comprehensive Metabolic Panel Stat Lipase Stat Troponin & CK Cardiac Panel Stat 07/19/23 17:51 EKG-12 Lead Stat 07/19/23 19:04 Urinalysis and Microscopic Stat Discontinued Medications Sodium Chloride (Normal Saline 0.9%) 1,000 mls @ 500 mls/hr IV BOLUS ONE Stop: 07/19/23 19:30 Last Infusion: 07/19/23 20:02 Dose: Infused Documented By: Admin: 07/19/23 17:54 Dose: 500 mls/hr Documented By: CORY Ondansetron HCl (Ondansetron 4 Mg/2 Ml Inj) 4 mg IV NOW ONE Stop: 07/19/23 17:32 Last Admin: 07/19/23 17:54 Dose: 4 mg Documented By: CORY Vital Signs Vital signs: Vital Signs - 8 hr 07/19/23 16:32 07/19/23 16:32 07/19/23 17:00 Temperature 98.2 F Pulse Rate 93 H 84 84 Pulse Rate [Orthostatic Lying] Pulse Rate [Orthostatic Sitting] Pulse Rate [Orthostatic Standing] Respiratory Rate 16 19 16 Blood Pressure 128/68 Blood Pressure [Orthostatic Lying] Blood Pressure [Orthostatic Sitting] Blood Pressure [Orthostatic Standing] Pulse Oximetry 98 95 94 Oxygen Delivery Method Room Air 07/19/23 17:30 07/19/23 17:32 07/19/23 17:34 Temperature Pulse Rate 85 84 83 Pulse Rate [Orthostatic Lying] Pulse Rate [Orthostatic Sitting] Pulse Rate [Orthostatic Standing] Respiratory Rate 20 18 16 Blood Pressure Blood Pressure [Orthostatic Lying] Blood Pressure [Orthostatic Sitting] Blood Pressure [Orthostatic Standing] Pulse Oximetry 93 94 94 Oxygen Delivery Method 07/19/23 17:36 07/19/23 17:38 07/19/23 17:40 Temperature Pulse Rate 86 85 84 Pulse Rate [Orthostatic Lying] Pulse Rate [Orthostatic Sitting] Pulse Rate [Orthostatic Standing] Respiratory Rate 19 16 18 Blood Pressure Blood Pressure [Orthostatic Lying] Blood Pressure [Orthostatic Sitting] Blood Pressure [Orthostatic Standing] Pulse Oximetry 93 94 92 Oxygen Delivery Method 07/19/23 17:42 07/19/23 17:44 07/19/23 17:46 Temperature Pulse Rate 85 85 83 Pulse Rate [Orthostatic Lying] Pulse Rate [Orthostatic Sitting] Pulse Rate [Orthostatic Standing] Respiratory Rate 21 25 H 20 Blood Pressure Blood Pressure [Orthostatic Lying] Blood Pressure [Orthostatic Sitting] Blood Pressure [Orthostatic Standing] Pulse Oximetry 95 93 94 Oxygen Delivery Method 07/19/23 17:48 07/19/23 17:50 07/19/23 17:52 Temperature Pulse Rate 83 83 84 Pulse Rate [Orthostatic Lying] Pulse Rate [Orthostatic Sitting] Pulse Rate [Orthostatic Standing] Respiratory Rate 23 31 H 29 H Blood Pressure Blood Pressure [Orthostatic Lying] Blood Pressure [Orthostatic Sitting] Blood Pressure [Orthostatic Standing] Pulse Oximetry 94 94 94 Oxygen Delivery Method 07/19/23 17:54 07/19/23 17:56 07/19/23 17:58 Temperature Pulse Rate 82 83 82 Pulse Rate [Orthostatic Lying] Pulse Rate [Orthostatic Sitting] Pulse Rate [Orthostatic Standing] Respiratory Rate 20 19 17 Blood Pressure Blood Pressure [Orthostatic Lying] Blood Pressure [Orthostatic Sitting] Blood Pressure [Orthostatic Standing] Pulse Oximetry 94 95 95 Oxygen Delivery Method 07/19/23 18:00 07/19/23 18:02 07/19/23 18:02 Temperature Pulse Rate 82 83 Pulse Rate [Orthostatic Lying] Pulse Rate [Orthostatic Sitting] Pulse Rate [Orthostatic Standing] Respiratory Rate 23 16 Blood Pressure 101/73 Blood Pressure [Orthostatic Lying] Blood Pressure [Orthostatic Sitting] Blood Pressure [Orthostatic Standing] Pulse Oximetry 95 94 Oxygen Delivery Method 07/19/23 18:04 07/19/23 18:06 07/19/23 18:08 Temperature Pulse Rate 83 82 82 Pulse Rate [Orthostatic Lying] Pulse Rate [Orthostatic Sitting] Pulse Rate [Orthostatic Standing] Respiratory Rate 19 18 19 Blood Pressure Blood Pressure [Orthostatic Lying] Blood Pressure [Orthostatic Sitting] Blood Pressure [Orthostatic Standing] Pulse Oximetry 94 94 94 Oxygen Delivery Method 07/19/23 18:10 07/19/23 18:12 07/19/23 18:14 Temperature Pulse Rate 83 82 84 Pulse Rate [Orthostatic Lying] Pulse Rate [Orthostatic Sitting] Pulse Rate [Orthostatic Standing] Respiratory Rate 17 20 23 Blood Pressure Blood Pressure [Orthostatic Lying] Blood Pressure [Orthostatic Sitting] Blood Pressure [Orthostatic Standing] Pulse Oximetry 95 94 95 Oxygen Delivery Method 07/19/23 18:16 07/19/23 18:18 07/19/23 18:20 Temperature Pulse Rate 84 82 80 Pulse Rate [Orthostatic Lying] Pulse Rate [Orthostatic Sitting] Pulse Rate [Orthostatic Standing] Respiratory Rate 22 29 H 17 Blood Pressure Blood Pressure [Orthostatic Lying] Blood Pressure [Orthostatic Sitting] Blood Pressure [Orthostatic Standing] Pulse Oximetry 94 94 95 Oxygen Delivery Method 07/19/23 18:22 07/19/23 18:24 07/19/23 18:26 Temperature Pulse Rate 81 84 82 Pulse Rate [Orthostatic Lying] Pulse Rate [Orthostatic Sitting] Pulse Rate [Orthostatic Standing] Respiratory Rate 18 26 H 21 Blood Pressure Blood Pressure [Orthostatic Lying] Blood Pressure [Orthostatic Sitting] Blood Pressure [Orthostatic Standing] Pulse Oximetry 95 94 95 Oxygen Delivery Method 07/19/23 18:28 07/19/23 18:30 07/19/23 18:31 Temperature Pulse Rate 82 82 Pulse Rate [Orthostatic Lying] Pulse Rate [Orthostatic Sitting] Pulse Rate [Orthostatic Standing] Respiratory Rate 17 28 H Blood Pressure 164/72 H Blood Pressure [Orthostatic Lying] Blood Pressure [Orthostatic Sitting] Blood Pressure [Orthostatic Standing] Pulse Oximetry 95 95 Oxygen Delivery Method 07/19/23 18:31 07/19/23 19:01 07/19/23 19:02 Temperature Pulse Rate 82 84 85 Pulse Rate [Orthostatic Lying] Pulse Rate [Orthostatic Sitting] Pulse Rate [Orthostatic Standing] Respiratory Rate 19 19 31 H Blood Pressure Blood Pressure [Orthostatic Lying] Blood Pressure [Orthostatic Sitting] Blood Pressure [Orthostatic Standing] Pulse Oximetry 95 95 97 Oxygen Delivery Method 07/19/23 19:03 07/19/23 19:03 07/19/23 19:04 Temperature Pulse Rate 82 85 Pulse Rate [Orthostatic Lying] Pulse Rate [Orthostatic Sitting] Pulse Rate [Orthostatic Standing] Respiratory Rate 24 19 Blood Pressure 171/79 H Blood Pressure [Orthostatic Lying] Blood Pressure [Orthostatic Sitting] Blood Pressure [Orthostatic Standing] Pulse Oximetry 97 96 Oxygen Delivery Method 07/19/23 19:05 07/19/23 19:05 07/19/23 19:06 Temperature Pulse Rate 83 84 Pulse Rate [Orthostatic Lying] Pulse Rate [Orthostatic Sitting] Pulse Rate [Orthostatic Standing] Respiratory Rate 25 H 22 Blood Pressure 178/79 H Blood Pressure [Orthostatic Lying] Blood Pressure [Orthostatic Sitting] Blood Pressure [Orthostatic Standing] Pulse Oximetry 95 95 Oxygen Delivery Method 07/19/23 19:08 07/19/23 19:09 07/19/23 19:09 Temperature Pulse Rate 91 H 91 H Pulse Rate [Orthostatic Lying] Pulse Rate [Orthostatic Sitting] Pulse Rate [Orthostatic Standing] Respiratory Rate 31 H 24 Blood Pressure 193/81 H Blood Pressure [Orthostatic Lying] Blood Pressure [Orthostatic Sitting] Blood Pressure [Orthostatic Standing] Pulse Oximetry 92 92 Oxygen Delivery Method 07/19/23 19:10 07/19/23 19:12 07/19/23 19:30 Temperature Pulse Rate 90 82 Pulse Rate [Orthostatic Lying] 86 Pulse Rate [Orthostatic Sitting] 82 Pulse Rate [Orthostatic Standing] 91 H Respiratory Rate 39 H 22 Blood Pressure 160/93 H Blood Pressure [Orthostatic Lying] 171/79 H Blood Pressure [Orthostatic Sitting] 178/79 H Blood Pressure [Orthostatic Standing] 193/81 H Pulse Oximetry 83 L 95 Oxygen Delivery Method Room Air 07/19/23 20:01 07/19/23 20:01 07/19/23 20:31 Temperature Pulse Rate 80 Pulse Rate [Orthostatic Lying] Pulse Rate [Orthostatic Sitting] Pulse Rate [Orthostatic Standing] Respiratory Rate 30 H Blood Pressure 152/126 H 179/77 H Blood Pressure [Orthostatic Lying] Blood Pressure [Orthostatic Sitting] Blood Pressure [Orthostatic Standing] Pulse Oximetry 96 Oxygen Delivery Method 07/19/23 20:31 07/19/23 21:00 07/19/23 21:01 Temperature Pulse Rate 75 74 Pulse Rate [Orthostatic Lying] Pulse Rate [Orthostatic Sitting] Pulse Rate [Orthostatic Standing] Respiratory Rate 16 19 Blood Pressure 166/79 H Blood Pressure [Orthostatic Lying] Blood Pressure [Orthostatic Sitting] Blood Pressure [Orthostatic Standing] Pulse Oximetry 94 93 Oxygen Delivery Method 07/19/23 21:01 07/19/23 21:15 07/19/23 21:15 Temperature Pulse Rate 74 77 Pulse Rate [Orthostatic Lying] Pulse Rate [Orthostatic Sitting] Pulse Rate [Orthostatic Standing] Respiratory Rate 17 24 Blood Pressure 173/77 H Blood Pressure [Orthostatic Lying] Blood Pressure [Orthostatic Sitting] Blood Pressure [Orthostatic Standing] Pulse Oximetry 93 95 Oxygen Delivery Method Room Air MDM - Nausea/Vomiting/Diarrhea Lab Data 07/19/23 17:50 07/19/23 17:50 Labs: Lab Results 07/19/23 07/19/23 Range/Units 17:50 19:04 WBC 8.8 (4.5-11.0) X10^3/uL RBC 3.82 L (4.0-5.2) X10^6/uL Hgb 11.0 L (12.0-16.0) g/dL Hct 33.5 L (36-46) % MCV 87.5 (80-100) fL MCH 28.9 (26-34) PG MCHC 33.0 (30-36) % RDW 15.2 H (11.6-14.8) % Plt Count 346 (150-400) X10^3/uL Neut % (Auto) 73.4 (50-75) % Lymph % (Auto) 19.6 L (25-40) % [place] % (Auto) 5.0 (3-14) % Eos % (Auto) 1.3 L (2-4) % Baso % (Auto) 0.7 (0-2) % Neut # (Auto) 6500 (4206-0419) /uL Lymph # (Auto) 1700 (8890-4946) /uL [place] # (Auto) 400 (0-900) /uL Eos # (Auto) 100 (0-450) /uL Baso # (Auto) 100 (0-100) /uL Sodium 138 (137-145) mmol/L Potassium 4.2 (3.4-5.1) mmol/L Chloride 100 (98-107) mmol/L Carbon Dioxide 30 (22-32) mmol/L BUN 24 H (7-17) mg/dL Creatinine 0.45 L (0.52-1.04) mg/dL Estimated GFR > 60 (>60) mL/min BUN/Creatinine Ratio 53.3 H (6-22) Glucose 181 H (80-110) mg/dL Calcium 10.6 H (8.4-10.2) mg/dL Total Bilirubin 0.6 (0.2-1.3) mg/dL AST 26 (14-36) IU/L ALT 16 (<35) IU/L Alkaline Phosphatase 57 (38-126) U/L Total Creatine Kinase 32 (30-135) U/L Troponin I < 0.012 (0.01-0.034) ng/mL Total Protein 7.4 (6.3-8.2) g/dL Albumin 4.3 (3.5-5.0) g/dL Globulin 3.1 (1.7-4.1) g/dL Albumin/Globulin Ratio 1.4 (1.0-2.8) Lipase 43 (23-300) U/L Urine Color Yellow Urine Appearance Clear Urine pH 6.5 (4.5-8.0) Ur Specific [place] 1.025 (1.000-1.035) Urine Protein Negative (Negative) Urine Glucose (UA) Negative (Negative) g/dL Urine Ketones 1+ H (NEGATIVE) Urine Occult Blood Negative (Negative) Urine Nitrate Negative (Negative) Urine Bilirubin Negative (NEGATIVE) Urine Urobilinogen 0.2 (0.2) E.U./dL Ur Leukocyte Esterase Negative (NEGATIVE) Urine RBC None seen (0-5/HPF) Urine WBC 0-1/hpf (0-5/HPF) Ur Squamous Epith Cells None seen (0-5/HPF) Urine Bacteria None seen (None) Ur Culture Indicated? Cult not indicated Imaging Data CT scan - head: Radiologist's Impression: IMPRESSION: No acute intracranial abnormality. Exam is mildly degraded by motion artifact. Previously visualized trace bilateral subdural hematomas are not definitively seen on current exam. Dictated by: Bernie Johnson M.D. on 07/19/2023 at 17:01 Approved by: Bernie Johnson M.D. on 07/19/2023 at 17:14 ECG Data Interpretation: ECG obtained at 5:51 p.m. shows sinus rhythm at 83 beats per minute with a QTC of 415. This ECG has nonspecific lateral changes MDM Narrative Medical decision making narrative: Patient is able to ambulate without difficulty. She is not orthostatic. Urinalysis looks good. No objective abnormalities on physical exam. I feel fairly reassured that she has benign positional vertigo probably related to her recent head injury. Will treat for same and discharged with outpatient follow- up careful return precautions given. Discharge Plan Departure Patient Disposition: Home Clinical Impression: Dizziness Instructions: Vertigo Activity Restrictions/Additional Instructions: No obvious cause for the symptoms is identified after very careful evaluation with blood tests urinalysis vital signs physical exam and imaging of the brain. I think she has vertigo. I recommend meclizine as needed for dizziness. Follow up at the clinic next week if symptoms are not improving. Return to the ED for fainting events, severe chest pains or abdominal pain or repeated vomiting or other severe symptoms. Prescriptions: New meclizine 25 mg tablet 25 mg PO QID PRN (Reason: dizziness) Qty: 20 0RF No Action simvastatin 20 MG tablet 20 mg PO HS Qty: 90 3RF (DME) OneTouch Verio test strips Strip MISCELLANEOUS Patient Comments: USE 1 STRIP ONCE A DAY levothyroxine 75 mcg tablet 75 mcg PO QAM Patient Comments: TAKE 1 TABLET BY MOUTH EVERY DAY lisinopril 10 mg tablet 10 mg PO DAILY Patient Comments: TAKE 1 TABLET BY MOUTH EVERY DAY lidocaine 5 % Adhesive Patch,Medicated 1 patch TOPICAL DAILY Rx Instructions: leave on most painful area for up to 12 hrs diclofenac sodium 1 % Gel 2 g TOPICAL QID PRN (Reason: joint pain) Rx Instructions: apply to single elbow, wrist or hand; for hand includes palm/fingers/back of hand atorvastatin [Lipitor] 20 mg Tablet 10 mg PO BEDTIME Qty: 30 0RF metoclopramide HCl [Reglan] 10 mg tablet 10 mg PO QACHS Qty: 30 0RF hydrocodone-acetaminophen 5-325 mg tablet 1 tab PO Q8H PRN (Reason: pain) Qty: 7 0RF Referrals: Malidna Valenzuela MD [Primary Care Provider] - Stand Alone Forms: Patient Portal/API
--- NOTE | 2023-07-19 19:13 | PC.NURSE ---
pt reports she felt dizzy when she turned to her right side while we were doing ADL care
[2023-07-19 19:32] LABS: Appearance Urine UA CLEAR; Bilirubin Urine UA NEGATIVE (NEGATIVE); Color Urine UA YELLOW; Glucose Urine UA NEGATIVE (Negative); Ketones Urine UA 1+ (NEGATIVE); Leukocyte Esterase Urine UA NEGATIVE (NEGATIVE); Nitrite Urine UA NEGATIVE (Negative); Occult Blood Urine UA NEGATIVE (Negative); Protein Urine UA NEGATIVE (Negative); Specific Gravity Urine UA 1.025 (1.000-1.035); Urobilinogen Urine UA 0.2 E.U./dL (0.2)
[2023-07-19 19:34] LABS: pH Urine UA 6.5 (4.5-8.0)
[2023-07-19 19:40] LABS: Bacteria Urine None Seen; Culture Indicated Urine Cult Not Indicated; RBC Urine None Seen (0-5/HPF); Squamous Epithelial Cell Urine None Seen (0-5/HPF); WBC Urine 0-1/HPF (0-5/HPF)
--- NOTE | 2023-07-19 21:10 | PC.NURSE ---
Patient reports feeling better but that she is tired. She requests to use restroom, BSC provided for safety. Patient able to sit up and transfer from bed to BSC and back with only little assist from daughter in room. Patient denied having any dizziness or nausea during this motion.
== END 2023-07-19 21:36 | disposition home or self-care (01) ==
PROVIDERS: Emergency Medicine; Emergency Provider Family Medicine Addiction Medicine; PCP Family Medicine
DX: R42 Dizziness and giddiness (principal); Z79.899 Other long term (current) drug therapy
CPT/HCPCS: 36415; 51701; 70450; 80053; 81001; 82550; 83690; 84484; 85025; 93005; 93010; 96361; 96374; 99284; J2405

== ENCOUNTER → 2023-11-05 12:36 | Outpatient (CLI) | payer MEDICARE, MEDICAID, SELFPAY ==
[2021-12-18 18:39] VITALS: BMI 30.6
[2023-11-05 13:40] LABS: Add Manual Diff / Slide Review NO; Basophils Absolute Auto 0 /uL (0-100); Basophils Percent Auto 0.6 % (0-2); Eosinophils Absolute Auto 300 /uL (0-450); Eosinophils Percent Auto 4.1 % (2-4); Hematocrit 32.6 % (36-46); Hemoglobin 10.9 g/dL (12.0-16.0); Lymphocytes Absolute Auto 2000 /uL (1100-4500); Lymphocytes Percent Auto 27.2 % (25-40); Mean Corpuscular HGB Conc 33.6 % (30-36); Mean Corpuscular Hemoglobin 29.5 PG (26-34); Mean Corpuscular Volume 87.9 fL (80-100); Monocytes Absolute Auto 400 /uL (0-900); Neutrophils Absolute Auto 4600 /uL (1500-7000); Neutrophils Percent Auto 63.1 % (50-75); Platelet Count 277 X10^3/uL (150-400); Red Blood Cell Count 3.71 X10^6/uL (4.0-5.2); Red Cell Distribution Width 15.4 % (11.6-14.8); White Blood Cell Count 7.2 X10^3/uL (4.5-11.0)
[2023-11-05 13:47] LABS: Hemoglobin A1C% w Est Avg Glu 6.2 % (4.0-6.0)
[2023-11-05 13:53] LABS: Alanine Aminotransferase 12 IU/L (<35); Albumin 3.9 g/dL (3.5-5.0); Albumin Globulin Ratio 1.4 (1.0-2.8); Alkaline Phosphatase 54 U/L (38-126); Aspartate Aminotransferase 18 IU/L (14-36); BUN Creatinine Ratio 41.7 (6-22); Bilirubin Total 0.3 mg/dL (0.2-1.3); Blood Urea Nitrogen 20 mg/dL (7-17); Calcium 9.8 mg/dL (8.4-10.2); Carbon Dioxide 28 mmol/L (22-32); Chloride 106 mmol/L (98-107); Estimated Glomerular Filt Rate > 60 mL/min (>60); Globulin 2.7 g/dL (1.7-4.1); Glucose 186 mg/dL (80-110); HEMOLYSIS < 15 (0-50); Potassium 4.6 mmol/L (3.4-5.1); Sodium 139 mmol/L (137-145); Total Protein 6.6 g/dL (6.3-8.2)
[2023-11-05 14:25] LABS: Ferritin 12 ng/mL (11-264)
[2023-11-05 14:56] LABS: Folate 3.8 ng/mL (2.76-20.0); Vitamin B12 Reflex MMA if <400 > 1000 pg/mL (239-931)
== END ==
LOC: LAB 12:36
PROVIDERS: PCP Family Medicine; Referring Provider Physician Assistant; Visit Provider Physician Assistant
DX: F03.90 Unspecified dementia, unspecified severity, without behavioral disturbance, psychotic disturbance, mood disturbance, and anxiety (principal)
CPT/HCPCS: 36415; 80053; 82607; 82728; 82746; 83036; 85025

== ENCOUNTER 2023-11-15 10:45 | Emergency (ER) | payer MEDICARE, MEDICAID, SELFPAY ==
[2021-12-18 18:39] VITALS: BMI 30.6
[2023-11-15] VITALS (8 sets, daily range): BP systolic 111–148; BP diastolic 53–67; PULSE 67–75; RESP 16–19; TEMP 36.4; O2SAT 96–100; BMI 25.0
--- NOTE | 2023-11-15 11:09 | ED.ABDPAIN ---
HPI - Abdominal Pain General Chief Complaint: Urogenital-Female Stated Complaint: blood in urine,sent by [facility] Time Seen by Provider: 11/15/23 10:59 Source: family Mode of arrival: Wheelchair History of Present Illness HPI narrative: Patient is a 88-year-old female history of diabetes hyperlipidemia, hypothyroid presenting today with increasing confusion and hematuria. She is Maldivian speaking but does speak some Welsh and family is at bedside. Daughters report that over the last 1 week she seems to be more confused than normal. Also reports that there is probably some blood in her urine and she is complaining of some left-sided pain as well. No fever no chest pain or shortness of breath. Not having any other symptoms this time Related Data Home Medications Medication Instructions Recorded Confirmed blood [facility]15[facility]23 Verio test strips) diclofenac sodium 1 % topical gel 2 g topical QID PRN joint pain 12/18/21 11/15/23 levothyroxine 75 mcg tablet 75 mcg PO QAM 12/18/21 11/15/23 lidocaine 5 % topical patch 1 patch topical DAILY 12/18/21 11/15/23 lisinopril 10 mg tablet 10 mg PO DAILY 12/18/21 11/15/23 glipizide 5 mg tablet 5 mg PO BID 08/02/23 11/15/23 ibuprofen 800 mg tablet 800 mg PO 3XD 08/02/23 11/15/23 insulin glargine 100 unit/mL (3 unit SUBCUT 08/02/23 11/15/23 mL) subcutaneous pen (Lantus Solostar U-100 Insulin) lancets 30 gauge ([facility] #100 ea 08/02/23 11/15/23 Plus Lancet) magnesium oxide 250 mg PO DAILY 08/02/23 11/15/23 metformin 1,000 mg tablet 1,000 mg PO BID 08/02/23 11/15/23 pen needle, diabetic 31 gauge x #1,200 ea 08/02/23 11/15/23/16 (BD Ultra-Fine Short Pen Needle) Previous Rx's Medication Instructions Recorded atorvastatin 20 mg tablet (Lipitor) 10 mg (1/2 x 20 mg) PO BEDTIME #30 12/21/21 tabs metoclopramide HCl 10 mg tablet 10 mg PO QACHS #30 tabs 12/21/21 (Reglan) hydrocodone 5 mg-acetaminophen 325 1 tab PO Q8H PRN pain #7 tabs 07/02/23 mg tablet meclizine 25 mg tablet 25 mg PO QID PRN dizziness #20 tabs 07/19/23 Dexcom G6 Data Warehousing Engineer Kit #1 ea 08/05/23 Dexcom G6 Sensor kit #3 ea 08/05/23 Dexcom G6 transmitter kit #1 ea 08/05/23 naproxen 500 mg tablet 500 mg PO BID #40 tabs 11/05/23 cyclobenzaprine 5 mg tablet 5 mg PO TID PRN muscle spasm #60 11/07/23 tabs cephalexin 500 mg capsule 500 mg PO BID 7 days #14 caps 11/15/23 Allergies Allergy/AdvReac Type Severity Reaction Status Date / Time aspirin [ASPIRIN] AdvReac Mild NAUSEA Verified 11/15/23 10:55 Patient History Medical History (Updated 11/15/23 @ 13:16 by Evelin Mattson DO) Hx of fracture of humerus Diarrhea Elevated vitamin B12 level Hyperlipidemia Hypothyroidism Hypertension Type 2 diabetes mellitus Surgical History History of bilateral knee replacement History of cataract removal with insertion of prosthetic lens Status post cholecystectomy Family History Brother High cholesterol Stroke Social History household members: none Smoking Status: Never smoker Smoking Status: Never smoker alcohol intake frequency: holidays/special occasions only Substance Use Type: does not use Exam Initial Vital Signs Initial Vital Signs: Vital Signs Temperature 97.5 F L 11/15/23 10:49 Pulse Rate 69 11/15/23 10:49 Respiratory Rate 18 11/15/23 10:49 Blood Pressure 148/66 H 11/15/23 10:49 Pulse Oximetry 100 11/15/23 10:49 Oxygen Delivery Method Room Air 11/15/23 10:49 GENERAL: Alert well-appearing 88-year-old female HEENT: Head atraumatic,EOMI, pupils reactive, face symmetric, moist mucous membranes CARDIOVASCULAR: Regular rate and rhythm without murmurs, rubs or gallops. RESPIRATORY: Breath sounds equal bilaterally, no wheezes rales or rhonchi. ABDOMEN: Soft, nontender. Normoactive bowel sounds all 4 quadrants. No guarding or rebound. : Mild left EXTREMITIES: Normal range of motion, no clubbing or edema. Neurovascularly intact NEUROLOGICAL: Alert and oriented x4. Able to lift both legs up without reproducing any sort of back pain SKIN: Warm, dry, no laceration, no petechiae, no rashes or lesions. Course Orders Ordered: ED Orders 11/15/23 11:07 Complete Blood Count AUTO DIFF Stat Comprehensive Metabolic Panel Stat Lipase Stat TSH [Thyroid Stimulating Hormone] Stat 11/15/23 11:10 CT kidney ureter bladder (KUB) Stat 11/15/23 11:27 Urine Microscopic Stat 11/15/23 12:45 Urine Culture Stat Urine Microscopic Stat Vital Signs Vital signs: Vital Signs - 8 hr 11/15/23 10:49 11/15/23 11:17 11/15/23 11:17 Temperature 97.5 F L Pulse Rate 69 71 Respiratory Rate 18 Blood Pressure 148/66 H 111/53 L Pulse Oximetry 100 96 Oxygen Delivery Method Room Air 11/15/23 11:35 11/15/23 11:36 11/15/23 11:36 Temperature Pulse Rate 71 67 Respiratory Rate 16 Blood Pressure 118/57 L Pulse Oximetry 97 Oxygen Delivery Method 11/15/23 12:00 11/15/23 12:37 11/15/23 12:39 Temperature Pulse Rate 68 74 70 Respiratory Rate 19 16 Blood Pressure Pulse Oximetry 96 Oxygen Delivery Method 11/15/23 12:39 11/15/23 13:02 Temperature Pulse Rate 75 Respiratory Rate 16 Blood Pressure 144/67 H Pulse Oximetry 99 Oxygen Delivery Method MDM - Abdominal Pain Lab Data 11/15/23 11:07 11/15/23 11:07 Labs: Lab Results 11/15/23 11/15/23 11/15/23 Range/Units 11:07 11:27 12:45 WBC 7.6 (4.5-11.0) X10^3/uL RBC 4.03 (4.0-5.2) X10^6/uL Hgb 11.4 L (12.0-16.0) g/dL Hct 34.7 L (36-46) % MCV 86.1 (80-100) fL MCH 28.3 (26-34) PG MCHC 32.9 (30-36) % RDW 16.2 H (11.6-14.8) % Plt Count 303 (150-400) X10^3/uL Neut % (Auto) 65.3 (50-75) % Lymph % (Auto) 24.9 L (25-40) % Cannon % (Auto) 5.7 (3-14) % Eos % (Auto) 3.4 (2-4) % Baso % (Auto) 0.7 (0-2) % Neut # (Auto) 5000 (0406-6317) /uL Lymph # (Auto) 1900 (1764-9704) /uL Cannon # (Auto) 400 (0-900) /uL Eos # (Auto) 300 (0-450) /uL Baso # (Auto) 100 (0-100) /uL Sodium 138 (137-145) mmol/L Potassium 4.2 (3.4-5.1) mmol/L Chloride 105 (98-107) mmol/L Carbon Dioxide 28 (22-32) mmol/L BUN 26 H (7-17) mg/dL Creatinine 0.47 L (0.52-1.04) mg/dL Estimated GFR > 60 (>60) mL/min BUN/Creatinine Ratio 55.3 H (6-22) Glucose 173 H (80-110) mg/dL Calcium 9.9 (8.4-10.2) mg/dL Total Bilirubin 0.4 (0.2-1.3) mg/dL AST 22 (14-36) IU/L ALT 17 (<35) IU/L Alkaline Phosphatase 59 (38-126) U/L Total Protein 7.3 (6.3-8.2) g/dL Albumin 4.3 (3.5-5.0) g/dL Globulin 3.0 (1.7-4.1) g/dL Albumin/Globulin Ratio 1.4 (1.0-2.8) Lipase 44 (23-300) U/L TSH 3.71 (0.47-4.68) uIU/mL Urine RBC 0-1/hpf 0-1/hpf (0-5/HPF) Urine WBC 5-10/hpf H 5-10/hpf H (0-5/HPF) Ur Squamous Epith Cells >30 /hpf H D 5-10 /hpf H (0-5/HPF) Urine Bacteria Few (2-10) H Few (2-10) H (None) Ur Culture Indicated? Cult not indicated Specimen cultured Vol Urine Centrifuged 10ml (spun) 10ml (spun) Point of care testing: Urine Dip Bedside Urine Glucose Negative Bedside Urine Bilirubin - Negative Bedside Urine Ketone - Negative Urine Specific [place] 1.030 Bedside Urine Occult Blood - Negative Bedside Urine pH 6.0 Bedside Urine Protein - Negative Bedside Urine Urobilinogen - Negative Bedside Urine Nitrite - Negative Bedside Urine Leukocytes + [address] scan - abdomen/pelvis: Radiologist's Impression: PROCEDURE: CT KIDNEY URETER BLADDER (KUB) INDICATIONS: left flank pain TECHNIQUE: Axial sections were acquired from the lung bases to the pubic symphysis. Coronal and sagittal reformats were performed. For radiation dose reduction, the following was used: automated exposure control, adjustment of mA and/or kV according to patient size. COMPARISON: [facility], CT, CT ABDOMEN PELVIS W CON, 06/09/2020, 18:48. FINDINGS: Image quality: Diagnostic. Lower Chest: Cardiomegaly. Again noted is distal esophageal fluid, potentially indicating reflux. URINARY: Right Kidney: No stones or hydronephrosis. Right Ureter: No hydroureter. Left Kidney: No stones or hydronephrosis. Left Ureter: No hydroureter. Bladder: Normal wall thickness. No stones. ABDOMEN: Liver: No contour-deforming solid mass. Gallbladder: Surgically absent Biliary ducts: No biliary dilation. Pancreas: No ductal dilation. Spleen: Size is within normal limits. Adrenal Glands: No adrenal nodules. Stomach and Bowel: Normal colonic caliber, without significant wall thickening. Extensive sigmoid diverticulosis without evidence of diverticulitis. Normal gas-filled appendix. Peritoneum: No abnormal intraperitoneal fluid. No free air. Ventral Wall: Very thin anterior abdominal wall. Abdominal Nodes: No enlarged retroperitoneal or mesenteric lymph nodes. Vessels: Aorta and inferior vena cava are normal in size. PELVIS: Pelvic Organs: Again noted are extensive dystrophic calcifications of the uterus. No adnexal masses. Pelvic Nodes: Unremarkable. Miscellaneous: No inguinal hernias are seen. Bones: Unremarkable. Extensive degenerative change in the lower lumbar spine with anterolisthesis of L4 on L5 and L5 on S1. There is bilateral severe foraminal narrowing at L5-S1. Anterolisthesis is degenerative in nature, secondary to facet arthropathy. IMPRESSION: 1. Cardiomegaly. 2. Distal esophageal fluid suggest possible reflux, as before. 3. No renal stones, ureteral stones, or hydronephrosis. 4. Extensive sigmoid diverticulosis without evidence of diverticulitis. 5. Lower lumbar degenerative change. Findings include severe bilateral foraminal narrowing at L5-S1 with foraminal L5 nerve root impingement. Dictated by: Tarun Villarreal M.D. on 11/15/2023 at 12:08 MDM Narrative Medical decision making narrative: Patient 80-year-old female history of diabetes hypertension hyperlipidemia presenting today with left-sided back pain and blood in urine. Family reports mild confusion has a little bit worse. Vitals are stable she is currently afebrile Blood Work has been reviewed no leukocytosis or evidence of sepsis. Urinalysis is consistent with UTI with bacteria and leukocyte. No evidence of kidney dysfunction Imaging has been reviewed no evidence of nephrolithiasis or other abdominal abnormality but does show lower lumbar degenerative changes Patient is having some mild confusion with evidence of UTI. She has no evidence of sepsis she overall appears well and nontoxic. CT is negative for any other intra abdominal abnormality. At this time can be discharged home with antibiotics Discharge Plan Departure Patient Disposition: Home Clinical Impression: Acute UTI Instructions: DI for Urinary Tract Infection (UTI) Activity Restrictions/Additional Instructions: *You have been diagnosed with UTI *What to do: At this time mild UTI start to improve over the next 2-3 days *Continue to take medications as directed Keflex 500 mg twice a day for 7 days-->[facility] *Follow up with your primary care provider in 2-3 days or call [phone] *Return to ER if you should have increasing confusion back pain or any new, worsening or concerning symptoms Prescriptions: New cephalexin 500 mg capsule 500 mg PO BID 7 Days Qty: 14 0RF No Action cyclobenzaprine 5 mg tablet 5 mg PO TID PRN (Reason: muscle spasm) Qty: 60 0RF insulin glargine [Lantus Solostar U-100 Insulin] 100 unit/mL (3 mL) insulin pen SUBCUT Patient Comments: [NO ORIGINAL SIG] glipizide 5 mg tablet 5 mg PO BID (DME) pen needle, diabetic [BD Ultra-Fine Short Pen Needle] 31 gauge x 5/16 needle See Rx Instructions .ROUTE DAILY Qty: 1200 Rx Instructions: As directed metformin 1,000 mg tablet 1,000 mg PO BID magnesium oxide 250 mg magnesium tablet 250 mg PO DAILY ibuprofen 800 mg tablet 800 mg PO 3XD (DME) lancets [OneTouch Delica Plus Lancet] 30 gauge misc See Rx Instructions .ROUTE .MEDSUPPLY Qty: 100 Patient Comments: [NO ORIGINAL SIG] Rx Instructions: As directed (DME) Dexcom G6 Data Warehousing Engineer Kit See Rx Instructions .Route .MEDSUPPLY Qty: 1 0RF Rx Instructions: As directed (DME) Dexcom G6 transmitter kit See Rx Instructions .Route .MEDSUPPLY Qty: 1 4RF Rx Instructions: As directed. To be refilled every 3 months (DME) Dexcom G6 Sensor kit See Rx Instructions .Route .MEDSUPPLY Qty: 3 12RF Rx Instructions: As directed. To be refilled every 30 days naproxen 500 mg tablet 500 mg PO BID Qty: 40 0RF (DME) Second [employer]uch Verio test strips Strip MISCELLANEOUS Patient Comments: USE 1 STRIP ONCE A DAY levothyroxine 75 mcg tablet 75 mcg PO QAM Patient Comments: TAKE 1 TABLET BY MOUTH EVERY DAY lisinopril 10 mg tablet 10 mg PO DAILY Patient Comments: TAKE 1 TABLET BY MOUTH EVERY DAY lidocaine 5 % Adhesive Patch,Medicated 1 patch TOPICAL DAILY Rx Instructions: leave on most painful area for up to 12 hrs diclofenac sodium 1 % Gel 2 g TOPICAL QID PRN (Reason: joint pain) Rx Instructions: apply to single elbow, wrist or hand; for hand includes palm/fingers/back of hand atorvastatin [Lipitor] 20 mg Tablet 10 mg PO BEDTIME Qty: 30 0RF metoclopramide HCl [Reglan] 10 mg tablet 10 mg PO QACHS Qty: 30 0RF meclizine 25 mg tablet 25 mg PO QID PRN (Reason: dizziness) Qty: 20 0RF hydrocodone-acetaminophen 5-325 mg tablet 1 tab PO Q8H PRN (Reason: pain) Qty: 7 0RF Referrals: Rebecca Kitchen MD [Primary Care Provider] - Stand Alone Forms: Patient Portal/API
--- NOTE | 2023-11-15 11:16 | PC.NURSE ---
Pt denies current pain. But states that earlier before having pain medication she was having difficulty ambulating due to pain in abdomen/lower back
[2023-11-15 11:18] LABS: Add Manual Diff / Slide Review NO; Basophils Absolute Auto 100 /uL (0-100); Basophils Percent Auto 0.7 % (0-2); Eosinophils Absolute Auto 300 /uL (0-450); Eosinophils Percent Auto 3.4 % (2-4); Hematocrit 34.7 % (36-46); Hemoglobin 11.4 g/dL (12.0-16.0); Lymphocytes Absolute Auto 1900 /uL (1100-4500); Lymphocytes Percent Auto 24.9 % (25-40); Mean Corpuscular HGB Conc 32.9 % (30-36); Mean Corpuscular Hemoglobin 28.3 PG (26-34); Mean Corpuscular Volume 86.1 fL (80-100); Monocytes Absolute Auto 400 /uL (0-900); Monocytes Percent Auto 5.7 % (3-14); Neutrophils Absolute Auto 5000 /uL (1500-7000); Neutrophils Percent Auto 65.3 % (50-75); Platelet Count 303 X10^3/uL (150-400); Red Blood Cell Count 4.03 X10^6/uL (4.0-5.2); Red Cell Distribution Width 16.2 % (11.6-14.8); White Blood Cell Count 7.6 X10^3/uL (4.5-11.0)
[2023-11-15 11:38] LABS: Alanine Aminotransferase 17 IU/L (<35); Albumin 4.3 g/dL (3.5-5.0); Albumin Globulin Ratio 1.4 (1.0-2.8); Alkaline Phosphatase 59 U/L (38-126); Aspartate Aminotransferase 22 IU/L (14-36); BUN Creatinine Ratio 55.3 (6-22); Bilirubin Total 0.4 mg/dL (0.2-1.3); Blood Urea Nitrogen 26 mg/dL (7-17); Calcium 9.9 mg/dL (8.4-10.2); Carbon Dioxide 28 mmol/L (22-32); Chloride 105 mmol/L (98-107); Estimated Glomerular Filt Rate > 60 mL/min (>60); Glucose 173 mg/dL (80-110); HEMOLYSIS < 15 (0-50); Lipase 44 U/L (23-300); Potassium 4.2 mmol/L (3.4-5.1); Sodium 138 mmol/L (137-145); Total Protein 7.3 g/dL (6.3-8.2)
[2023-11-15 11:52] LABS: Bacteria Urine Few (2-10); Culture Indicated Urine Cult Not Indicated; RBC Urine 0-1/HPF (0-5/HPF); Squamous Epithelial Cell Urine >30 /HPF (0-5/HPF); Urine Volume 10mL (spun); WBC Urine 5-10/HPF (0-5/HPF)
[2023-11-15 12:45] LABS: Thyroid Stimulating Hormone 3.71 uIU/mL (0.47-4.68)
[2023-11-15 12:59] LABS: RBC Urine 0-1/HPF (0-5/HPF); Urine Volume 10mL (spun); WBC Urine 5-10/HPF (0-5/HPF)
[2023-11-15 13:00] LABS: Bacteria Urine Few (2-10); Culture Indicated Urine Specimen Cultured; Squamous Epithelial Cell Urine 5-10 /HPF (0-5/HPF)
== END 2023-11-15 13:19 | disposition home or self-care (01) ==
PROVIDERS: Emergency Provider Emergency Medicine; PCP Family Medicine
DX: N39.0 Urinary tract infection, site not specified (principal); R41.0 Disorientation, unspecified; R10.9 Unspecified abdominal pain; Z79.899 Other long term (current) drug therapy
CPT/HCPCS: 36415; 74176; 80053; 81003; 81015; 83690; 84443; 85025; 87086; 99283; 99284

== ENCOUNTER 2024-03-19 18:22 | Emergency (ER) | payer MEDICARE, MEDICAID, SELFPAY ==
[2021-12-18 18:39] VITALS: BMI 30.6
[2024-03-19 18:24] VITALS: BP 218/96; PULSE 73; RESP 14; TEMP 36.9; O2SAT 95; BMI 36.5
[2024-03-19 18:31] VITALS: BP 218/96; PULSE 83; O2SAT 96
--- NOTE | 2024-03-19 18:33 | EKG_ITS ---
[address] [address] Test Date: 2024-03-19 Pat Name: Cee Stockton Department: [facility] Room: Gender: Female Lump Roller: JENNY : 1935 Requested By: Order Number: [id number] Reading MD: Augusto Marcos MD Measurements Intervals [place] Rate: 76 P: 50 NH: 168 QRS: -3 QRSD: 88 T: -3 QT: 356 QTc: 400 Interpretive Statements Sinus rhythm with marked sinus arrhythmia Electronically Signed On 03-20-2024 8:04:54 PDT by Augusto Marcos MD
--- NOTE | 2024-03-19 18:51 | ED.ABDPAIN ---
HPI - Abdominal Pain General Chief Complaint: Abdominal Pain Stated Complaint: sharp lft side abd pain. Time Seen by Provider: 03/19/24 18:26 Source: patient Mode of arrival: Wheelchair History of Present Illness HPI narrative: 88-year-old female with history of hypertension, hyperlipidemia, insulin-dependent diabetes presents for 1 day of left lower quadrant abdominal/flank pain. Pain is constant, nothing seems to make it better or worse. Seems localized to the left quadrant of the abdomen. Daughter has been giving Tylenol and ibuprofen for pain without significant relief. Denies nausea, vomiting, changes in bowel or bladder habits, fevers, other complaints at this time. Related Data Home Medications Medication Instructions Recorded Confirmed blood sugar diagnostic (OneTouch 12/18/21 11/15/23 Verio test strips) diclofenac sodium 1 % topical gel 2 g topical QID PRN joint pain 12/18/21 11/15/23 levothyroxine 75 mcg tablet 75 mcg PO QAM 12/18/21 11/15/23 lidocaine 5 % topical patch 1 patch topical DAILY 12/18/21 11/15/23 lisinopril 10 mg tablet 10 mg PO DAILY 12/18/21 11/15/23 glipizide 5 mg tablet 5 mg PO BID 08/02/23 11/15/23 ibuprofen 800 mg tablet 800 mg PO 3XD 08/02/23 11/15/23 insulin glargine 100 unit/mL (3 unit SUBCUT 08/02/23 11/15/23 mL) subcutaneous pen (Lantus Solostar U-100 Insulin) lancets 30 gauge ([facility] ea 08/02/23 11/15/23 Plus Lancet) magnesium oxide 250 mg PO DAILY 08/02/23 11/15/23 metformin 1,000 mg tablet 1,000 mg PO BID 08/02/23 11/15/23 pen needle, diabetic 31 gauge x #1,200 ea 08/02/23 11/15/2301/15 (BD Ultra-Fine Short Pen Needle) Previous Rx's Medication Instructions Recorded atorvastatin 20 mg tablet (Lipitor) 10 mg (1/2 x 20 mg) PO BEDTIME #30 12/21/21 tabs metoclopramide HCl 10 mg tablet 10 mg PO QACHS #30 tabs 12/21/21 (Reglan) hydrocodone 5 mg-acetaminophen 325 1 tab PO Q8H PRN pain #7 tabs 07/02/23 mg tablet meclizine 25 mg tablet 25 mg PO QID PRN dizziness #20 tabs 07/19/23 Dexcom G6 Supervisor [employer] Kit #1 ea 08/05/23 Dexcom G6 Sensor kit #3 ea 08/05/23 Dexcom G6 transmitter kit #1 ea 08/05/23 naproxen 500 mg tablet 500 mg PO BID #40 tabs 11/05/23 cyclobenzaprine 5 mg tablet 5 mg PO TID PRN muscle spasm #60 11/07/23 tabs quetiapine 25 mg tablet (Seroquel) 25 mg PO BEDTIME #30 tabs 03/19/24 Allergies Allergy/AdvReac Type Severity Reaction Status Date / Time aspirin [ASPIRIN] AdvReac Mild NAUSEA Verified 03/19/24 18:34 Patient History Medical History Hx of fracture of humerus Diarrhea Elevated vitamin B12 level Hyperlipidemia Hypothyroidism Hypertension Type 2 diabetes mellitus Surgical History History of bilateral knee replacement History of cataract removal with insertion of prosthetic lens Status post cholecystectomy Family History Brother High cholesterol Stroke Social History household members: none Smoking Status: Never smoker Smoking Status: Never smoker alcohol intake frequency: holidays/special occasions only Substance Use Type: does not use Exam Initial Vital Signs Initial Vital Signs: Vital Signs Temperature 98.5 F 03/19/24 18:24 Pulse Rate 73 03/19/24 18:24 Respiratory Rate 14 03/19/24 18:24 Blood Pressure 218/96 H 03/19/24 18:24 Pulse Oximetry 95 03/19/24 18:24 Oxygen Delivery Method Room Air 03/19/24 18:24 Const: Awake, alert, no acute distress, nontoxic appearing Cardiac: regular rate, regular rhythm RESP: unlabored, clear bilaterally, no wheezing GI: Soft, minimal left lower quadrant tenderness to deep palpation without rebound or guarding Skin: Warm, Dry, intact, no rashes Neuro: AO x2, CN II-XII grossly intact, moves all extremities Course Orders Ordered: Discontinued Medications Morphine Sulfate (Morphine 4 Mg/Ml Inj) 4 mg IV NOW ONE Stop: 03/19/24 18:51 Last Admin: 03/19/24 19:00 Dose: 4 mg Documented By: SOLA Ondansetron HCl (Ondansetron 4 Mg/2 Ml Inj) 4 mg IV NOW PRN PRN Reason: Nausea And Vomiting Quetiapine Fumarate (Quetiapine 25 Mg Tablet) 25 mg PO NOW ONE Stop: 03/19/24 20:35 Last Admin: 03/19/24 20:45 Dose: 25 mg Documented By: SOLA Vital Signs Vital signs: Vital Signs - 8 hr 03/19/24 18:24 Temperature 98.5 F Pulse Rate 73 Respiratory Rate 14 Blood Pressure 218/96 H Pulse Oximetry 95 Oxygen Delivery Method Room Air MDM - Abdominal Pain Differential Diagnosis Differential diagnosis: Likely abdominal pain, calculus of kidney and constipation Lab Data 03/19/24 18:37 03/19/24 18:37 Labs: Lab Results 03/19/24 Range/Units 18:37 WBC 7.7 (4.5-11.0) X10^3/uL RBC 3.60 L (4.0-5.2) X10^6/uL Hgb 10.8 L (12.0-16.0) g/dL Hct 32.8 L (36-46) % MCV 91.0 (80-100) fL MCH 30.1 (26-34) PG MCHC 33.1 (30-36) % RDW 15.1 H (11.6-14.8) % Plt Count 248 (150-400) X10^3/uL Neut % (Auto) 55.3 (50-75) % Lymph % (Auto) 33.0 (25-40) % Bell % (Auto) 6.2 (3-14) % Eos % (Auto) 4.7 H (2-4) % Baso % (Auto) 0.8 (0-2) % Neut # (Auto) 4300 (5327-4705) /uL Lymph # (Auto) 2500 (0061-6146) /uL Bell # (Auto) 500 (0-900) /uL Eos # (Auto) 400 (0-450) /uL Baso # (Auto) 100 (0-100) /uL Sodium 137 (137-145) mmol/L Potassium 4.6 (3.4-5.1) mmol/L Chloride 108 H (98-107) mmol/L Carbon Dioxide 23 (22-32) mmol/L BUN 25 H (7-17) mg/dL Creatinine 0.66 (0.52-1.04) mg/dL Estimated GFR > 60 (>60) mL/min BUN/Creatinine Ratio 37.9 H (6-22) Glucose 153 H (80-110) mg/dL Calcium 9.7 (8.4-10.2) mg/dL Total Bilirubin 0.4 (0.2-1.3) mg/dL AST 22 (14-36) IU/L ALT 15 (<35) IU/L Alkaline Phosphatase 44 (38-126) U/L Total Protein 6.7 (6.3-8.2) g/dL Albumin 4.0 (3.5-5.0) g/dL Globulin 2.7 (1.7-4.1) g/dL Albumin/Globulin Ratio 1.5 (1.0-2.8) Lipase 61 (23-300) U/L Point of care testing: Urine Dip Bedside Urine Glucose Negative Bedside Urine Bilirubin - Negative Bedside Urine Ketone - Negative Urine Specific [place] 1.025 Bedside Urine Occult Blood - Negative Bedside Urine pH 6.0 Bedside Urine Protein - Negative Bedside Urine Urobilinogen - Negative Bedside Urine Nitrite - Negative Bedside Urine Leukocytes - Negative Esterase Imaging Data CT scan - abdomen/pelvis: Radiologist's Impression: PROCEDURE: CT ABDOMEN PELVIS WO CON INDICATIONS: LLQ ABD/FLANK PAIN TECHNIQUE: Axial sections were acquired from the lung bases to the pubic symphysis. Coronal and sagittal reformats were performed. For radiation dose reduction, the following was used: automated exposure control, adjustment of mA and/or kV according to patient size. COMPARISON: [facility], CT, CT ABDOMEN PELVIS W CON, 06/09/2020, 18:48. FINDINGS: Image quality: Diagnostic. Lower Chest: Heart is mildly enlarged. Dependent atelectasis. Trace pericardial effusion. URINARY: Right Kidney: No stones or hydronephrosis. Right Ureter: No hydroureter. Left Kidney: No stones or hydronephrosis. Left Ureter: No hydroureter. Bladder: Normal wall thickness. No stones. ABDOMEN: Liver: No contour-deforming solid mass. Gallbladder: Cholecystectomy. Biliary ducts: No biliary dilation. Pancreas: No ductal dilation. Spleen: Size is within normal limits. Adrenal Glands: No adrenal nodules. Stomach and Bowel: Normal colonic caliber, without significant wall thickening. Significant diverticulosis without evidence of acute diverticulitis. Normal appendix. Peritoneum: No abnormal intraperitoneal fluid. No free air. Ventral Wall: No hernia. Abdominal Nodes: No enlarged retroperitoneal or mesenteric lymph nodes. Vessels: Aorta and inferior vena cava are normal in size. Atherosclerotic vascular calcifications. PELVIS: Pelvic Organs: Unremarkable. Pelvic Nodes: Unremarkable. Miscellaneous: No inguinal hernias are seen. Bones: Degenerative changes of the spine. Grade 1 anterolisthesis of L4 on L5 and L5 on S1. IMPRESSION: 1. No obstructing stones or hydronephrosis. No acute findings within the abdomen or pelvis. 2. Significant diverticulosis without evidence of acute diverticulitis. Dictated by: Hunter Marina M.D. on 03/19/2024 at 19:32 Approved by: Hunter Marina M.D. on 03/19/2024 at 19:36 MDM Narrative Medical decision making narrative: Left-sided abdominal pain. Exam is reassuring, no peritoneal signs. Patient given pain medications and CT imaging to be obtained. Laboratory work is unremarkable. CT imaging shows no acute findings to explain patient's left-sided pain, no stone, no diverticulitis, no other concerning disease process. Daughter at bedside asked if there was anything that patient could have to help her sleep at night. Patient has had decreasing sleep quality for the last several weeks to months. She only sleeps for 2-3 hours at a time even with Children's Benadryl. At night patient hallucinates things that are not present and is afraid to be alone. These hallucinations go away during the day. Patient has an upcoming appointment with her neurologist scheduled within the next 2 weeks. Patient given a prescription of Seroquel to see if this helps her sleep at night. PCP follow up advised. Discharge Plan Departure Patient Disposition: Home Clinical Impression: Abdominal pain Qualifiers: Abdominal location: left lower quadrant Qualified Code(s): R10.32 - Left lower quadrant pain Instructions: DI for Abdominal Pain-Adult Activity Restrictions/Additional Instructions: Your laboratory work and CT imaging today did not show any obvious cause of the left-sided abdominal pain. Urine did not show any signs of infection. Seroquel has been sent to your pharmacy for sleep aid. Give 25 mg at night to help sleep. Follow up with your primary care doctor and the neurologist as scheduled. Prescriptions: New quetiapine [Seroquel] 25 mg tablet 25 mg PO BEDTIME Qty: 30 0RF No Action cyclobenzaprine 5 mg tablet 5 mg PO TID PRN (Reason: muscle spasm) Qty: 60 0RF insulin glargine [Lantus Solostar U-100 Insulin] 100 unit/mL (3 mL) insulin pen SUBCUT Patient Comments: [NO ORIGINAL SIG] glipizide 5 mg tablet 5 mg PO BID (DME) pen needle, diabetic [BD Ultra-Fine Short Pen Needle] 31 gauge x 5/16 needle See Rx Instructions .ROUTE DAILY Qty: 1200 Rx Instructions: As directed metformin 1,000 mg tablet 1,000 mg PO BID magnesium oxide 250 mg magnesium tablet 250 mg PO DAILY ibuprofen 800 mg tablet 800 mg PO 3XD (DME) lancets [Scalable Display TechnologiesTouch Delica Plus Lancet] 30 gauge misc See Rx Instructions .ROUTE .MEDSUPPLY Qty: 100 Patient Comments: [NO ORIGINAL SIG] Rx Instructions: As directed (DME) Dexcom G6 Supervisor Publications Kit See Rx Instructions .Route .MEDSUPPLY Qty: 1 0RF Rx Instructions: As directed (DME) Dexcom G6 transmitter kit See Rx Instructions .Route .MEDSUPPLY Qty: 1 4RF Rx Instructions: As directed. To be refilled every 3 months (DME) Dexcom G6 Sensor kit See Rx Instructions .Route .MEDSUPPLY Qty: 3 12RF Rx Instructions: As directed. To be refilled every 30 days naproxen 500 mg tablet 500 mg PO BID Qty: 40 0RF (DME) OneTouch Verio test strips Strip MISCELLANEOUS Patient Comments: USE 1 STRIP ONCE A DAY levothyroxine 75 mcg tablet 75 mcg PO QAM Patient Comments: TAKE 1 TABLET BY MOUTH EVERY DAY lisinopril 10 mg tablet 10 mg PO DAILY Patient Comments: TAKE 1 TABLET BY MOUTH EVERY DAY lidocaine 5 % Adhesive Patch,Medicated 1 patch TOPICAL DAILY Rx Instructions: leave on most painful area for up to 12 hrs diclofenac sodium 1 % Gel 2 g TOPICAL QID PRN (Reason: joint pain) Rx Instructions: apply to single elbow, wrist or hand; for hand includes palm/fingers/back of hand atorvastatin [Lipitor] 20 mg Tablet 10 mg PO BEDTIME Qty: 30 0RF metoclopramide HCl [Reglan] 10 mg tablet 10 mg PO QACHS Qty: 30 0RF meclizine 25 mg tablet 25 mg PO QID PRN (Reason: dizziness) Qty: 20 0RF hydrocodone-acetaminophen 5-325 mg tablet 1 tab PO Q8H PRN (Reason: pain) Qty: 7 0RF Referrals: Rebecca Kitchen MD [Primary Care Provider] - Stand Alone Forms: Patient Portal/API
[2024-03-19 18:55] LABS: Add Manual Diff / Slide Review NO; Basophils Absolute Auto 100 /uL (0-100); Basophils Percent Auto 0.8 % (0-2); Eosinophils Absolute Auto 400 /uL (0-450); Eosinophils Percent Auto 4.7 % (2-4); Hematocrit 32.8 % (36-46); Hemoglobin 10.8 g/dL (12.0-16.0); Lymphocytes Absolute Auto 2500 /uL (1100-4500); Mean Corpuscular HGB Conc 33.1 % (30-36); Mean Corpuscular Hemoglobin 30.1 PG (26-34); Monocytes Absolute Auto 500 /uL (0-900); Monocytes Percent Auto 6.2 % (3-14); Neutrophils Absolute Auto 4300 /uL (1500-7000); Neutrophils Percent Auto 55.3 % (50-75); Platelet Count 248 X10^3/uL (150-400); Red Cell Distribution Width 15.1 % (11.6-14.8); White Blood Cell Count 7.7 X10^3/uL (4.5-11.0)
[2024-03-19 19:00] VITALS: PULSE 77; RESP 22; O2SAT 96
[2024-03-19] MEDS: MORPHINE 4 MG/ML INJ IV (19:00)
[2024-03-19 19:01] VITALS: BP 186/87; PULSE 77; RESP 21; O2SAT 98
[2024-03-19 19:20] LABS: Alanine Aminotransferase 15 IU/L (<35); Albumin Globulin Ratio 1.5 (1.0-2.8); Alkaline Phosphatase 44 U/L (38-126); Aspartate Aminotransferase 22 IU/L (14-36); BUN Creatinine Ratio 37.9 (6-22); Bilirubin Total 0.4 mg/dL (0.2-1.3); Blood Urea Nitrogen 25 mg/dL (7-17); Calcium 9.7 mg/dL (8.4-10.2); Carbon Dioxide 23 mmol/L (22-32); Chloride 108 mmol/L (98-107); Estimated Glomerular Filt Rate > 60 mL/min (>60); Globulin 2.7 g/dL (1.7-4.1); Glucose 153 mg/dL (80-110); Lipase 61 U/L (23-300); Potassium 4.6 mmol/L (3.4-5.1); Sodium 137 mmol/L (137-145); Total Protein 6.7 g/dL (6.3-8.2)
[2024-03-19 19:21] LABS: HEMOLYSIS 62 (0-50)
[2024-03-19 19:30] VITALS: PULSE 77; RESP 19; O2SAT 96
[2024-03-19 20:00] VITALS: PULSE 75; RESP 17; O2SAT 96
[2024-03-19] MEDS: QUETIAPINE 25 MG TABLET PO (20:45)
== END 2024-03-19 21:23 | disposition home or self-care (01) ==
PROVIDERS: Emergency Provider Emergency Medicine; PCP Family Medicine
DX: R10.32 Left lower quadrant pain (principal); Z79.899 Other long term (current) drug therapy
CPT/HCPCS: 36415; 74176; 80053; 81003; 83690; 85025; 93005; 96374; 99284; J2270

== ENCOUNTER 2024-10-16 14:43 | Emergency (ER) | payer MEDICARE, MEDICAID, SELFPAY ==
[2021-12-18 18:39] VITALS: BMI 30.6
[2024-10-16 14:59] VITALS: BP 196/84; PULSE 83; RESP 16; TEMP 36.3; O2SAT 97; BMI 50.3
[2024-10-16 15:16] VITALS: BP 236/110
[2024-10-16 15:17] VITALS: BP 210/97; PULSE 80; RESP 19; O2SAT 97
[2024-10-16 15:28] LABS: Appearance Urine UA CLEAR; Bilirubin Urine UA NEGATIVE (NEGATIVE); Color Urine UA YELLOW; Glucose Urine UA 1+ g/dL (Negative); Ketones Urine UA NEGATIVE (NEGATIVE); Leukocyte Esterase Urine UA NEGATIVE (NEGATIVE); Nitrite Urine UA NEGATIVE (Negative); Occult Blood Urine UA NEGATIVE (Negative); Protein Urine UA NEGATIVE (Negative); Urobilinogen Urine UA 0.2 E.U./dL (0.2)
[2024-10-16 15:33] LABS: Bacteria Urine Occasional (0-1); Culture Indicated Urine Cult Not Indicated; RBC Urine 1-5/HPF (0-5/HPF); Squamous Epithelial Cell Urine 1-5 /HPF (0-5/HPF); Urine Volume 10mL (spun); WBC Urine 1-5/HPF (0-5/HPF)
== END 2024-10-16 17:22 | disposition left against medical advice (07) ==
PROVIDERS: Emergency Provider Emergency Medicine; PCP Family Medicine
DX: R41.0 Disorientation, unspecified (principal)
CPT/HCPCS: 81001; 99281